=== PATIENT | male | born 1965 | race Two or more races ===

== ENCOUNTER 2020-07-11 09:43 | Outpatient (REF) | payer OTHER, SELFPAY ==
[2020-07-11 10:39] LABS: MANUAL DIFF FLAG NO
[2020-07-11 10:54] LABS: Basophils Percent Auto 0.5 % (0-2); Eosinophils Absolute Auto 0.2 X10*3/uL (0.0-0.4); Eosinophils Percent Auto 1.9 % (0-4); Hematocrit 45.2 % (42-52); Hemoglobin 14.8 g/dl (14.0-18.0); Imm Gran Abs Auto 0.02 X10*3/uL (0.00-0.03); Imm Gran Pct Auto 0.2 % (0.0-0.4); Lymphocytes Absolute Auto 2.9 X10*3/uL (1.2-4.9); Lymphocytes Percent Auto 35.4 % (20-40); Mean Corpuscular HGB Conc 32.7 g/dl (31.0-36.0); Mean Corpuscular Hemoglobin 28.7 pg (27.0-33.0); Mean Corpuscular Volume 87.6 fL (80-98); Mean Platelet Volume 12.3 fL (9.4-12.4); Monocytes Absolute Auto 0.4 X10*3/uL (0.1-1.2); Monocytes Percent Auto 5.5 % (2-11); Neutrophils Absolute Auto 4.5 X10*3/uL (2.0-8.3); Neutrophils Percent Auto 56.5 % (45-73); Platelet Count 220 X10*3/uL (160-400); Red Blood Count 5.16 X10*6/uL (4.60-5.80); Red Cell Distribution Width 13.3 % (11.0-16.0)
[2020-07-11 11:00] LABS: Estimated Average Glucose 255 mg/dL; Hemoglobin A1c % 10.5 %
[2020-07-11 11:35] LABS: Alanine Aminotransferase 115 U/L (0-40); Alkaline Phosphatase 159 U/L (39-117); Anion Gap 14 (12-20); Aspartate Amino Transferase 70 U/L (5-37); Bilirubin Total 1.2 mg/dL (0.0-1.0); Blood Urea Nitrogen 16 mg/dL (9-16); Calcium 9.4 mg/dL (8.4-10.2); Carbon Dioxide 28 mmol/L (22-29); Chloride 100 mmol/L (96-108); Cholesterol 163 mg/dL; Estimated Glomerular Filt Rate > 60; Glucose Fasting 289 mg/dL (60-99); HDL Cholesterol 49 mg/dL; LDL Cholesterol Calculated 92 mg/dl; Potassium 5.1 mmol/l (3.3-5.1); Prostate Specific Antigen Scr 0.52 ng/mL (<0.05-4.0); Sodium 137 mmol/L (135-145); TSH reflex Free T4 1.07 mIU/mL (0.32-4.0); Total Protein 7.4 g/dL (6.5-8.0); Triglycerides 114 mg/dL
[2020-07-11 11:38] LABS: Creatinine Urine 245.12 mg/dL
== END 2020-07-11 09:44 | disposition home or self-care (01) ==
LOC: HO.LAB 09:43
PROVIDERS: PCP Physician Assistant; Visit Provider Physician Assistant
DX: E11.9 Type 2 diabetes mellitus without complications (principal); I10 Essential (primary) hypertension; Z12.5 Encounter for screening for malignant neoplasm of prostate
CPT/HCPCS: 36415; 80053; 80061; 82043; 83036; 84153; 84443; 85025

== ENCOUNTER 2020-10-18 06:01 | Outpatient (REF) | payer OTHER, SELFPAY ==
[2020-10-18 07:01] LABS: Estimated Average Glucose 200 mg/dL; Hemoglobin A1c % 8.6 %
[2020-10-18 07:03] LABS: Alanine Aminotransferase 102 U/L (0-40); Albumin Level 4.2 g/dL (3.5-5.0); Alkaline Phosphatase 132 U/L (39-117); Anion Gap 15 (12-20); Aspartate Amino Transferase 66 U/L (5-37); Bilirubin Total 0.8 mg/dL (0.0-1.0); Blood Urea Nitrogen 17 mg/dL (9-16); Calcium 10.1 mg/dL (8.4-10.2); Carbon Dioxide 29 mmol/L (22-29); Chloride 100 mmol/L (96-108); Cholesterol 158 mg/dL; Estimated Glomerular Filt Rate > 60; Glucose Fasting 225 mg/dL (60-99); HDL Cholesterol 50 mg/dL; LDL Cholesterol Calculated 90 mg/dl; Sodium 139 mmol/L (135-145); Total Protein 7.7 g/dL (6.5-8.0); Triglycerides 90 mg/dL
== END 2020-10-18 06:02 | disposition home or self-care (01) ==
LOC: HO.LAB 06:01
PROVIDERS: PCP Physician Assistant; Visit Provider Physician Assistant
DX: E11.9 Type 2 diabetes mellitus without complications (principal)
CPT/HCPCS: 36415; 80053; 80061; 83036

== ENCOUNTER 2021-02-25 07:09 | Outpatient (REF) | payer OTHER, SELFPAY ==
[2021-02-25 08:23] LABS: Alanine Aminotransferase 92 U/L (0-40); Albumin Level 4.1 g/dL (3.5-5.0); Alkaline Phosphatase 131 U/L (39-117); Anion Gap 13 (12-20); Aspartate Amino Transferase 58 U/L (5-37); Bilirubin Total 0.6 mg/dL (0.0-1.0); Blood Urea Nitrogen 18 mg/dL (9-16); Calcium 9.6 mg/dL (8.4-10.2); Carbon Dioxide 28 mmol/L (22-29); Chloride 102 mmol/L (96-108); Cholesterol 147 mg/dL; Estimated Glomerular Filt Rate > 60; Glucose Fasting 239 mg/dL (60-99); HDL Cholesterol 47 mg/dL; LDL Cholesterol Calculated 80 mg/dl; Potassium 4.8 mmol/L (3.3-5.1); Sodium 138 mmol/L (135-145); Total Protein 7.5 g/dL (6.5-8.0); Triglycerides 102 mg/dL
[2021-02-25 08:33] LABS: Estimated Average Glucose 171 mg/dL; Hemoglobin A1c % 7.6 %
[2021-02-25 10:43] LABS: Creatinine Urine 199.02 mg/dL; Microalbum/Creatinine Ratio Ur 8.5 ug/mg cr
== END 2021-02-25 07:10 | disposition home or self-care (01) ==
LOC: HO.LAB 07:09
PROVIDERS: PCP Physician Assistant; Visit Provider Physician Assistant
DX: I10 Essential (primary) hypertension (principal); E11.9 Type 2 diabetes mellitus without complications
CPT/HCPCS: 36415; 80053; 80061; 82043; 83036

== ENCOUNTER 2021-06-13 16:16 | Outpatient (REF) | payer OTHER, SELFPAY ==
--- NOTE | ~2021-06-13 | XR_ITS ---
EXAMINATION: XR chest 2V CLINICAL INFORMATION: Reason for Exam Z11.1 - Encounter for screening for respiratory tuberculosis COMPARISON: No prior chest x-ray available in our system for comparison at the time of this dictation. TECHNIQUE: XR chest 2V Lungs and Dena: Both lungs are clear. Prominent first costochondral junction right more than left projecting over the right lung apex. Pleura: Normal. Costophrenic angles are sharp. No pneumothorax. Heart: The heart is normal in size. Mediastinum: The mediastinum is within normal limits.. Bones: Skeletal structures included are normal for patient's age. XR/XR chest 2V IMPRESSION: Normal chest x-ray.
[2021-06-13 16:48] LABS: MANUAL DIFF FLAG NO
[2021-06-13 17:01] LABS: Basophils Absolute Auto 0.1 X10*3/uL (0.0-0.2); Basophils Percent Auto 0.6 % (0-2); Eosinophils Absolute Auto 0.2 X10*3/uL (0.0-0.4); Eosinophils Percent Auto 1.8 % (0-4); Hematocrit 45.3 % (42.0-52.0); Hemoglobin 14.9 g/dl (14.0-18.0); Imm Gran Abs Auto 0.03 X10*3/uL (0.00-0.03); Imm Gran Pct Auto 0.3 % (0.0-0.4); Lymphocytes Absolute Auto 4.5 X10*3/uL (1.2-4.9); Lymphocytes Percent Auto 38.1 % (20-40); Mean Corpuscular HGB Conc 32.9 g/dl (31.0-36.0); Mean Corpuscular Hemoglobin 29.2 pg (27.0-33.0); Mean Corpuscular Volume 88.8 fL (80.0-98.0); Monocytes Absolute Auto 0.8 X10*3/uL (0.1-1.2); Monocytes Percent Auto 6.9 % (2-11); Neutrophils Absolute Auto 6.1 x10*3/uL (2.0-8.3); Neutrophils Percent Auto 52.3 % (45-73); Platelet Count 269 X10*3/uL (160-400); Red Cell Distribution Width 13.2 % (11.0-16.0); White Blood Count 11.7 X10*3/uL (4.8-10.8)
[2021-06-13 17:15] LABS: Alanine Aminotransferase 96 U/L (0-40); Albumin Level 4.3 g/dL (3.5-5.0); Alkaline Phosphatase 149 U/L (39-117); Anion Gap 13 (12-20); Aspartate Amino Transferase 65 U/L (5-37); Bilirubin Total 0.7 mg/dL (0.0-1.0); Blood Urea Nitrogen 16 mg/dL (9-16); Calcium 10.2 mg/dL (8.4-10.2); Carbon Dioxide 31 mmol/L (22-29); Chloride 99 mmol/L (96-108); Estimated Glomerular Filt Rate > 60; Glucose Random 159 mg/dL (60-115); Potassium 4.4 mmol/L (3.3-5.1); Sodium 139 mmol/L (135-145); Total Protein 8.2 g/dL (6.5-8.0)
== END 2021-06-13 16:17 | disposition home or self-care (01) ==
LOC: HO.XRAY 16:16
PROVIDERS: Absent Provider Physician Assistant; PCP Physician Assistant; Visit Provider Nurse Practitioner
DX: Z11.1 Encounter for screening for respiratory tuberculosis (principal); D36.9 Benign neoplasm, unspecified site
CPT/HCPCS: 36415; 71046; 80053; 85025; 99212

== ENCOUNTER 2021-07-07 16:11 | Outpatient (REF) | payer OTHER, SELFPAY ==
[2021-07-07 16:46] LABS: Hematocrit 44.9 % (42.0-52.0); Hemoglobin 14.7 g/dl (14.0-18.0); Mean Corpuscular HGB Conc 32.7 g/dl (31.0-36.0); Mean Corpuscular Hemoglobin 29.1 pg (27.0-33.0); Mean Corpuscular Volume 88.7 fL (80.0-98.0); Mean Platelet Volume 11.2 fL (9.4-12.4); Platelet Count 244 X10*3/uL (160-400); Red Blood Count 5.06 X10*6/uL (4.60-5.80); Red Cell Distribution Width 13.4 % (11.0-16.0); White Blood Count 9.9 X10*3/uL (4.8-10.8)
[2021-07-07 16:56] LABS: Estimated Average Glucose 166 mg/dL; Hemoglobin A1c % 7.4 %
[2021-07-07 17:08] LABS: Alanine Aminotransferase 70 U/L (0-40); Albumin Level 4.4 g/dL (3.5-5.0); Alkaline Phosphatase 115 U/L (39-117); Anion Gap 14 (12-20); Aspartate Amino Transferase 67 U/L (5-37); Bilirubin Total 0.8 mg/dL (0.0-1.0); Blood Urea Nitrogen 12 mg/dL (9-16); Calcium 9.9 mg/dL (8.4-10.2); Carbon Dioxide 28 mmol/L (22-29); Chloride 102 mmol/L (96-108); Cholesterol 149 mg/dL; Estimated Glomerular Filt Rate > 60; Glucose Fasting 116 mg/dL (60-99); HDL Cholesterol 48 mg/dL; LDL Cholesterol Calculated 83 mg/dl; Potassium 4.5 mmol/L (3.3-5.1); Sodium 139 mmol/L (135-145); Total Protein 8.2 g/dL (6.5-8.0); Triglycerides 91 mg/dL
[2021-07-07 17:43] LABS: TSH reflex Free T4 1.12 uIU/mL (0.32-4.0)
[2021-07-07 18:14] LABS: Prostate Specific Antigen Scr 0.62 ng/mL (<0.05-4.0)
== END 2021-07-07 16:12 | disposition home or self-care (01) ==
LOC: HO.LAB 16:11
PROVIDERS: PCP Physician Assistant; Visit Provider Physician Assistant
DX: Z12.5 Encounter for screening for malignant neoplasm of prostate (principal); E11.9 Type 2 diabetes mellitus without complications; I10 Essential (primary) hypertension
CPT/HCPCS: 36415; 80053; 80061; 83036; 84153; 84443; 85027

== ENCOUNTER 2022-01-13 07:47 | Outpatient (REF) | payer OTHER, SELFPAY ==
[2022-01-13 08:24] LABS: Hematocrit 40.5 % (42.0-52.0); Hemoglobin 13.4 g/dl (14.0-18.0); Mean Corpuscular HGB Conc 33.1 g/dl (31.0-36.0); Mean Corpuscular Hemoglobin 29.5 pg (27.0-33.0); Platelet Count 176 X10*3/uL (160-400); Red Blood Count 4.55 X10*6/uL (4.60-5.80); Red Cell Distribution Width 13.8 % (11.0-16.0)
[2022-01-13 09:04] LABS: Estimated Average Glucose 177 mg/dL; Hemoglobin A1c % 7.8 %
[2022-01-13 09:16] LABS: TSH reflex Free T4 1.59 uIU/mL (0.32-4.0)
[2022-01-13 09:22] LABS: Alanine Aminotransferase 159 U/L (0-40); Albumin Level 3.8 g/dL (3.5-5.0); Alkaline Phosphatase 185 U/L (39-117); Anion Gap 13 (12-20); Aspartate Amino Transferase 95 U/L (5-37); Bilirubin Total 1.4 mg/dL (0.0-1.0); Blood Urea Nitrogen 15 mg/dL (9-16); Calcium 9.5 mg/dL (8.4-10.2); Carbon Dioxide 25 mmol/L (22-29); Chloride 101 mmol/L (96-108); Estimated Glomerular Filt Rate > 60; Glucose Fasting 303 mg/dL (60-99); Potassium 4.8 mmol/L (3.3-5.1); Sodium 134 mmol/L (135-145); Total Protein 7.5 g/dL (6.5-8.0)
== END 2022-01-13 07:48 | disposition home or self-care (01) ==
LOC: HO.LAB 07:47
PROVIDERS: PCP Physician Assistant; Visit Provider Physician Assistant
DX: E11.9 Type 2 diabetes mellitus without complications (principal); I10 Essential (primary) hypertension
CPT/HCPCS: 36415; 80053; 83036; 84443; 85027

== ENCOUNTER 2022-02-16 08:39 | Outpatient (REF) | payer OTHER, SELFPAY ==
--- NOTE | ~2022-02-16 | US_ITS ---
EXAMINATION: US ABDOMEN LIMITED CLINICAL INFORMATION: Abnormal LFTs. COMPARISON: None TECHNIQUE: Real-time imaging of the right upper quadrant abdominal viscera. FINDINGS: PANCREAS: Not well visualized due to bowel gas LIVER: The liver is normal in size. The liver contour is normal. Liver echotexture is increased and heterogeneous questionable for hepatocellular disease. No focal hepatic lesion. There is no intrahepatic biliary duct dilatation seen. GALLBLADDER: Normal. The gallbladder is physiologically distended without evidence of stones, sludge, polyps, wall thickening or pericholecystic fluid. COMMON BILE DUCT: Normal in caliber measuring 0.4 cm in diameter. RIGHT KIDNEY: Normal. No hydronephrosis. No renal calculi or focal parenchymal lesions. The kidney measures 11.1 cm in maximum dimension. FREE FLUID: None. US/US abdomen limited IMPRESSION: Echogenic heterogeneous liver echotexture questionable for hepatocellular disease. Limited visualization of the pancreas.
== END 2022-02-16 08:40 | disposition home or self-care (01) ==
LOC: HO.HMGCX 08:39
PROVIDERS: Visit Provider Physician Assistant
DX: Z13.89 Encounter for screening for other disorder (principal)
CPT/HCPCS: 76705

== ENCOUNTER → 2022-03-28 12:07 | Outpatient (REF) | payer OTHER, SELFPAY ==
--- NOTE | 2022-03-28 12:16 | ECG_ITS ---
Test Reason : preop Blood Pressure : / mmHG Vent. Rate : 074 BPM Atrial Rate : 074 BPM P-R Int : 226 ms QRS Dur : 082 ms QT Int : 364 ms P-R-T Axes : 045 017 -15 degrees QTc Int : 404 ms Sinus rhythm with 1st degree A-V block Otherwise normal ECG When compared with ECG of 09-NOV-2009 07:51, [place] interval has increased Nonspecific T wave abnormality no longer evident in Lateral leads Referred By: Sia Garcia Electronically Signed By:EZIO ARRIETA
== END ==
LOC: HO.CARD 12:07
PROVIDERS: PCP Physician Assistant; Visit Provider Nurse Practitioner Family
DX: Z01.818 Encounter for other preprocedural examination (principal)
CPT/HCPCS: 93005

== ENCOUNTER 2022-04-02 08:18 | Day surgery (SDC) | payer OTHER, SELFPAY ==
[2022-03-28 10:02] VITALS: BMI 29.4
--- NOTE | 2022-03-30 09:16 | MHC.SHP ---
Pre-Procedural Eval Section A Date of Service: 03/30/22 The patient is an INPATIENT: No Changes since office visit: No Cold of Flu in the past 2 weeks, No New Medical Problems, No Changes in Medication and No Patient answered all questions The History & Physical has been completed within 30 days and I have reviewed it.: Yes Section B Chief Complaint: cataract Allergies: Allergies Allergy/AdvReac Type Severity Reaction Status Date / Time dulaglutide [From [facility]] AdvReac Intermediate GI upset Verified 03/27/22 16:29 Plan Diagnosis/Plan: Unchanged I have reviewed the history and physical and performed a pertinent physical examination on my patient. No changes have occurred unless specified.
--- NOTE | 2022-03-30 09:18 | HO.ANESPROP2 ---
Documented by User: Yumiko Gregory NP 03/30/22 09:19 HPI - Anesthesia Eval Consult details Narrative: 57yo M for Right Cataract Extraction IOL Insertion PCP cleared No previous cataract on record [facility] Active Problems Active Problems: All Active Problems (Updated 03/27/22 @ 16:35 by MANUELITO Lopes) Preoperative clearance (Acute) Hepatocellular injury (Acute) Cataract (Acute) Postprandial abdominal bloating (Acute) Elevated liver enzymes (Acute) HTN (hypertension) (Acute) DMII (diabetes mellitus, type 2) (Acute) Fatigue (Acute) Annual physical exam (Acute) Screening-pulmonary TB (Acute) Multiple adenomatous polyps (Acute) Past Medical History Medical History Diabetes HTN (hypertension) Family History Family History Father Diabetes Hypertension Mother Hypertension Diabetes Surgical History Surgical History History of eye surgery History of removal of cyst Social History Social History Housing: Apartment Are you a primary family day carer to a significant other at home: No Do you presently have visiting nurse or other home services: No Alcohol intake: never Patient Tobacco Use Status: Never used Tobacco e-Cigarette/Vaping Use: Never Used Use of substances other than those prescribed or required for medical reasons: No Have you been hit, kicked, punched, or otherwise hurt by someone within the past year? If so, by whom?: No Are you DNR?: No Advance Directives: No Advance Directives Information Provided: Yes Advance Directives on File: No Recently lost weight without trying: No Nutrition Risks: No Nutritional Risk service: Yes Current occupational status: employed and retired () Current occupation: [employer] Cognitive needs: No Hearing needs: No Vision needs: Yes Meds Allergies Allergy/AdvReac Type Severity Reaction Status Date / Time dulaglutide [From [facility]] AdvReac Intermediate GI upset Verified 03/27/22 16:29 Home Medications Medication Instructions Recorded Confirmed Last Taken Type sildenafil 100 mg tablet (Viagra) 100 mg PO DAILY PRN Sexual Activity 05/02/20 03/28/22 Unknown History Exam Exam Date and Time: March 30, 2022917 Height,Weight and Vital Signs: Height 5 ft 7 in Weight 85.275 kg Narrative Narrative: EKG 03/2022 SR with 1st AV block Assessment and Plan Assessment Anesthesia Assessment: Chart Reviewed Documented by User: Prema Mars MD 04/02/22 10:34 [facility] Past Medical History Medical History Diabetes HTN (hypertension) Family History Family History Father Diabetes Hypertension Mother Hypertension Diabetes Family history of problems with anesthesia: No Surgical History Surgical History History of eye surgery History of removal of cyst History of Problems with Anesthesia: No Social History Social History Housing: Apartment Are you a primary family day carer to a significant other at home: No Do you presently have visiting nurse or other home services: No Alcohol intake: never Patient Tobacco Use Status: Never used Tobacco e-Cigarette/Vaping Use: Never Used Use of substances other than those prescribed or required for medical reasons: No Have you been hit, kicked, punched, or otherwise hurt by someone within the past year? If so, by whom?: No Are you DNR?: No Advance Directives: No Advance Directives Information Provided: Yes Advance Directives on File: No Recently lost weight without trying: No Nutrition Risks: No Nutritional Risk service: Yes Current occupational status: employed and retired () Current occupation: [employer] Cognitive needs: No Hearing needs: No Vision needs: Yes Meds Allergies Allergy/AdvReac Type Severity Reaction Status Date / [facility] AdvReac Intermediate GI upset Verified 03/27/22 16:29 Home Medications Medication Instructions Recorded Confirmed Last Taken Type sildenafil 100 mg tablet (Viagra) 100 mg PO DAILY PRN Sexual Activity 05/02/20 03/28/22 Unknown History Exam Height,Weight and Vital Signs: Height 5 ft 7 in Weight 85.275 kg Vital Signs Temp Pulse Resp BP Pulse Ox O2 Del Method 04/02/22 09:33 98.1 F 78 18 155/77 H 99 Room Air Pertinent Lab Results Pertinent Lab Results: Lab Results 04/02/22 Range/Units 09:43 POC Glucose 194 H (60-115) mg/dL Airway Mallampati Class: II TM Dist: >3cm Neck ROM: Full Loose/Missing/Broken Teeth: No Heart: RRR Lungs: CTAB Assessment and Plan Assessment Anesthesia Assessment: Anesthesia Plan Discussed Final Anesthetic Review Family History of Problems with Anesthesia: No History of Problems with Anesthesia: No NPO: Yes ASA Class: II Final Preanesthetic Review: No Changes in Pt Med Stat, Meds/Allgs Chart Reviewed, Consent Obtained/Reviewed and Anes Risks/Benef Reviewed Patient Risk: Intermediate Procedure Risk: Low Assessment/Block/Sedation in SS: Assess/Block/Sedation-SS Anesthetic Plan Anesthetic Plan: MAC: Disposition: Standard PACU
[2022-04-02 09:33] VITALS: BP 155/77; PULSE 78; RESP 18; TEMP 36.7; O2SAT 99
[2022-04-02] MEDS: Phenylephrine HCL 2.5% Oph SoL 2 ML BOTTLE 1 DROP EYE-RIGHT ×3 (09:53→09:58)
[2022-04-02] MEDS: Tetracaine HCl/PF 0.5% Oph Sol 4 ML DROPS 1 DROP EYE-RIGHT (09:53)
[2022-04-02] MEDS: Cyclopentolate 1 % Ophth Sol 2 ML DRPBTL 1 DROP EYE-RIGHT ×3 (09:54→09:58)
[2022-04-02] MEDS: Tropicamide 1 % Ophth Sol 3 ML BTL 1 DROP EYE-RIGHT ×3 (09:54→09:58)
[2022-04-02] MEDS: Lactated Ringers 500 ML 50 ML IV (09:59)
[2022-04-02 10:00] VITALS: BMI 29.0
[2022-04-02 10:03] LABS: Glucose, Whole Blood 194 mg/dL (60-115)
--- NOTE | 2022-04-02 11:26 | HO.PNOPHT ---
Ophthalmology Procedure Procedure Date of Service: 04/02/22 Ophthalmology Viscoelastic: Nidia Draket Dual Pack Pro Ophthalmology Lenses: TECSVITLANA [id number] (24) Procedure Notes: PREOPERATIVE DIAGNOSIS: Decreased visual acuity right eye secondary to cataract POSTOPERATIVE DIAGNOSIS: Same PROCEDURE: Right cataract extraction with intraocular lens insertion SURGEON: Teodoro Galdamez M.D. ANESTHESIA: Topical/MAC ESTIMATED BLOOD LOSS: None COMPLICATIONS: None After obtaining informed consent, the patient was brought to the operating room suite and placed in the supine position. After adequate sedation per anesthesia, topical drops of Tetracaine were given to the right eye. The eye was then prepped and draped in the usual sterile fashion. The operating room microscope was then positioned over the operative eye and a lid speculum placed. A paracentesis was created. Viscoelastic was then instilled into the anterior chamber. A three plane incision was then created temporally, utilizing a 2.85 mm keratome. Capsulotomy forceps were then utilized to create a circular tear capsulotomy. Hydrodissection and hydrodelineation were carried out until adequate mobilization of the nucleus occurred. Phacoemulsification was then utilized to remove the dense central nucleus followed by removal of the cortical material utilizing the automated aspiration irrigation unit. Viscoelastic was instilled into the posterior capsular bag followed by placement of a posterior chamber intraocular lens without difficulty. The residual Viscoelastic was then removed utilizing the automated IA machine. The wound was checked and found to be watertight. The patient tolerated the procedure well and the lid speculum was removed. Intracameral injection of Vigamox 0.1 mL followed by a subtenon injection of Kenalog-40 0.2 mL were administered. The patient will be seen in the a.m.
[2022-04-02 11:50] VITALS: BP 141/70; PULSE 66; RESP 16; TEMP 36.5; O2SAT 100
== END 2022-04-02 12:01 ==
LOC: HO.SSS 08:19
PROVIDERS: PCP Physician Assistant; Visit Provider Ophthalmology
PROC: (CPT 66985; principal; 2022-04-02 11:20)
DX: H25.11 Age-related nuclear cataract, right eye (principal); H54.7 Unspecified visual loss; H25.041 Posterior subcapsular polar age-related cataract, right eye; E11.3551 Type 2 diabetes mellitus with stable proliferative diabetic retinopathy, right eye; E11.3292 Type 2 diabetes mellitus with mild nonproliferative diabetic retinopathy without macular edema, left eye; I10 Essential (primary) hypertension; Z79.4 Long term (current) use of insulin; Z79.899 Other long term (current) drug therapy
CPT/HCPCS: 66984; 82947; J2250; J3010; J3300; V2632

== ENCOUNTER 2022-04-07 07:01 | Outpatient (REF) | payer OTHER, SELFPAY ==
[2022-04-07 08:23] LABS: Hemoglobin 14.3 g/dl (14.0-18.0); Mean Corpuscular HGB Conc 33.3 g/dl (31.0-36.0); Mean Corpuscular Hemoglobin 29.4 pg (27.0-33.0); Mean Corpuscular Volume 88.5 fL (80.0-98.0); Platelet Count 199 X10*3/uL (160-400); Red Blood Count 4.86 X10*6/uL (4.60-5.80); Red Cell Distribution Width 13.2 % (11.0-16.0); White Blood Count 7.9 X10*3/uL (4.8-10.8)
[2022-04-07 09:03] LABS: Alanine Aminotransferase 106 U/L (0-40); Albumin Level 3.9 g/dL (3.5-5.0); Alkaline Phosphatase 201 U/L (39-117); Anion Gap 17 (12-20); Aspartate Amino Transferase 90 U/L (5-37); Bilirubin Total 0.9 mg/dL (0.0-1.0); Blood Urea Nitrogen 15 mg/dL (9-16); Calcium 10.3 mg/dL (8.4-10.2); Carbon Dioxide 27 mmol/L (22-29); Chloride 99 mmol/L (96-108); Cholesterol 195 mg/dL; Estimated Glomerular Filt Rate > 60; Glucose Fasting 253 mg/dL (60-99); HDL Cholesterol 60 mg/dL; LDL Cholesterol Calculated 108 mg/dl; Potassium 5.1 mmol/L (3.3-5.1); Sodium 138 mmol/L (135-145); Total Protein 7.7 g/dL (6.5-8.0); Triglycerides 137 mg/dL
[2022-04-07 10:54] LABS: Creatinine Urine 116.55 mg/dL; Microalbum/Creatinine Ratio Ur 13.7 ug/mg cr
== END 2022-04-07 07:02 | disposition home or self-care (01) ==
LOC: HO.LAB 07:01
PROVIDERS: Visit Provider Physician Assistant
DX: E11.9 Type 2 diabetes mellitus without complications (principal); I10 Essential (primary) hypertension
CPT/HCPCS: 36415; 80053; 80061; 82043; 84443; 85027

== ENCOUNTER 2022-04-16 06:51 | Day surgery (SDC) | payer OTHER, SELFPAY ==
[2022-03-28 10:09] VITALS: BMI 29.4
--- NOTE | 2022-04-12 15:08 | MHC.SHP ---
Pre-Procedural Eval Section A Date of Service: 04/12/22 The patient is an INPATIENT: No Changes since office visit: No Cold of Flu in the past 2 weeks, No New Medical Problems, No Changes in Medication and No Patient answered all questions The History & Physical has been completed within 30 days and I have reviewed it.: Yes Section B Chief Complaint: cataract Allergies: Allergies Allergy/AdvReac Type Severity Reaction Status Date / Time dulaglutide [From [facility]] AdvReac Intermediate GI upset Verified 04/11/22 15:11 Plan Diagnosis/Plan: Unchanged I have reviewed the history and physical and performed a pertinent physical examination on my patient. No changes have occurred unless specified.
--- NOTE | 2022-04-13 08:31 | HO.ANESPROP2 ---
Documented by User: Yumiko Gregory NP 04/13/22 08:37 HPI - Anesthesia Eval Consult details Narrative: 57yo M for Left Cataract Extraction IOL Insertion PCP cleared Right eye 04/02/22 with TIVA: Fent 50, Midaz 1 PMFSH Active Problems Active Problems: All Active Problems (Updated 04/11/22 @ 15:31 by Khadar Arciniega PA-C) HLD (hyperlipidemia) (Acute) HTN (hypertension) (Acute) DMII (diabetes mellitus, type 2) (Acute) Fatigue (Acute) Annual physical exam (Acute) Screening-pulmonary TB (Acute) Multiple adenomatous polyps (Acute) Elevated liver enzymes (Acute) Postprandial abdominal bloating (Acute) Cataract (Acute) Hepatocellular injury (Acute) Preoperative clearance (Acute) First degree AV block (Acute) Past Medical History Medical History Diabetes HTN (hypertension) Family History Family History Father Diabetes Hypertension Mother Hypertension Diabetes Family history of problems with anesthesia: No Surgical History Surgical History History of cataract extraction History of eye surgery History of removal of cyst History of Problems with Anesthesia: No Social History Social History Housing: Apartment Are you a primary healthcare management consultant to a significant other at home: No Do you presently have visiting nurse or other home services: No Alcohol intake: never Patient Tobacco Use Status: Never used Tobacco e-Cigarette/Vaping Use: Never Used Use of substances other than those prescribed or required for medical reasons: No Have you been hit, kicked, punched, or otherwise hurt by someone within the past year? If so, by whom?: No Are you DNR?: No Advance Directives: No Advance Directives Information Provided: Yes Advance Directives on File: No Recently lost weight without trying: No Eating poorly because of decreased appetite: No Nutrition Risks: No Nutritional Risk service: Yes Current occupational status: employed and retired () Current occupation: [employer] Cognitive needs: No Hearing needs: No Vision needs: Yes Meds Allergies Allergy/AdvReac Type Severity Reaction Status Date / Time dulaglutide [From [facility]] AdvReac Intermediate GI upset Verified 04/16/22 07:41 Home Medications Medication Instructions Recorded Confirmed Last Taken Type sildenafil 100 mg tablet (Viagra) 100 mg PO DAILY PRN Sexual Activity 05/02/20 04/11/22 Unknown History Exam Exam Date and Time: April 13, 2022830 Height,Weight and Vital Signs: Height 5 ft 7 in Weight 85.275 kg Assessment and Plan Assessment Anesthesia Assessment: Chart Reviewed Final Anesthetic Review Family History of Problems with Anesthesia: No History of Problems with Anesthesia: No Documented by User: Filiberto Child MD 04/16/22 08:52 PMF Past Medical History Medical History Diabetes HTN (hypertension) Family History Family History Father Diabetes Hypertension Mother Hypertension Diabetes Surgical History Surgical History History of cataract extraction History of eye surgery History of removal of cyst Social History Social History Housing: Apartment Are you a primary healthcare management consultant to a significant other at home: No Do you presently have visiting nurse or other home services: No Alcohol intake: never Patient Tobacco Use Status: Never used Tobacco e-Cigarette/Vaping Use: Never Used Use of substances other than those prescribed or required for medical reasons: No Have you been hit, kicked, punched, or otherwise hurt by someone within the past year? If so, by whom?: No Are you DNR?: No Advance Directives: No Advance Directives Information Provided: Yes Advance Directives on File: No Recently lost weight without trying: No Eating poorly because of decreased appetite: No Nutrition Risks: No Nutritional Risk service: Yes Current occupational status: employed and retired () Current occupation: [employer] Cognitive needs: No Hearing needs: No Vision needs: Yes Meds Allergies Allergy/AdvReac Type Severity Reaction Status Date / Time dulaglutide [From [facility]] AdvReac Intermediate GI upset Verified 04/16/22 07:41 Home Medications Medication Instructions Recorded Confirmed Last Taken Type sildenafil 100 mg tablet (Viagra) 100 mg PO DAILY PRN Sexual Activity 05/02/20 04/11/22 Unknown History Exam Airway Mallampati Class: II TM Dist: >3cm Neck ROM: Full Loose/Missing/Broken Teeth: No Heart: rrr+s1s2 Lungs: cta b/l Assessment and Plan Assessment Anesthesia Assessment: Anesthesia Plan Discussed Final Anesthetic Review NPO: Yes ASA Class: III Final Preanesthetic Review: No Changes in Pt Med Stat, Meds/Allgs Chart Reviewed, Consent Obtained/Reviewed and Anes Risks/Benef Reviewed Patient Risk: Intermediate Procedure Risk: Low Assessment/Block/Sedation in SS: Assess/Block/Sedation-SS Anesthetic Plan Anesthetic Plan: MAC: and Agree w/ Assess. and Plan Disposition: Standard PACU
[2022-04-16 07:44] VITALS: BP 172/90; PULSE 69; RESP 15; TEMP 36.2; O2SAT 98
[2022-04-16] MEDS: Tetracaine HCl/PF 0.5% Oph Sol 4 ML DROPS 1 DROP EYE-LEFT (07:49)
[2022-04-16] MEDS: Cyclopentolate 1 % Ophth Sol 2 ML DRPBTL 1 DROP EYE-LEFT ×3 (07:51→08:04)
[2022-04-16 07:54] LABS: Glucose, Whole Blood 183 mg/dL (60-115)
[2022-04-16] MEDS: Tropicamide 1 % Ophth Sol 3 ML BTL 1 DROP EYE-LEFT ×3 (07:54→08:05)
[2022-04-16] MEDS: Ketorolac Tromethamine 0.5% Op 5 ML DROPS 1 DROP EYE-LEFT ×3 (07:55→08:07)
[2022-04-16] MEDS: Phenylephrine HCL 2.5% Oph SoL 2 ML BOTTLE 1 DROP EYE-LEFT ×3 (07:56→08:08)
[2022-04-16] MEDS: Lactated Ringers 500 ML 50 ML IV (08:09)
--- NOTE | 2022-04-16 08:45 | HO.PNOPHT ---
Ophthalmology Procedure Procedure Date of Service: 04/16/22 Ophthalmology Viscoelastic: Healsarah Duet Dual Pack Pro Ophthalmology Lenses: TECSVITLANA [id number] (25) Procedure Notes: PREOPERATIVE DIAGNOSIS: Decreased visual acuity left eye secondary to cataract POSTOPERATIVE DIAGNOSIS: Same PROCEDURE: Left cataract extraction with intraocular lens insertion SURGEON: Teodoro Galdamez M.D. ANESTHESIA: Topical/MAC ESTIMATED BLOOD LOSS: None COMPLICATIONS: None After obtaining informed consent, the patient was brought to the operation room suite and placed in the supine position. After adequate sedation per anesthesia, topical drops of Tetracaine were given to the left eye. The eye was then prepped and draped in the usual sterile fashion. The operating room microscope was then positioned over the operative eye and a lid speculum placed. A paracentesis was created. Viscoelastic was then instilled into the anterior chamber. A three plane incision was then created temporally, utilizing a 2.85 mm keratome. Capsulotomy forceps were then utilized to create a circular tear capsulotomy. Hydrodissection and hydrodelineation were carried out until adequate mobilization of the nucleus occurred. Phacoemulsification was then utilized to remove the dense central nucleus followed by removal of the cortical material utilizing the automated aspiration irrigation unit. Viscoat elastic was instilled into the posterior capsular bag followed by placement of a posterior chamber intraocular lens without difficulty. The residual Viscoat elastic was then removed utilizing the automated IA machine. The wound was check and found to be watertight. The patient tolerated the procedure well and the lid speculum was removed. Intracameral injection of Vigamox 0.1 mL followed by a subtenon injection of Kenalog-40 0.2 mL were administered. The patient will be seen in the a.m.
[2022-04-16 09:11] VITALS: BP 142/69; PULSE 63; RESP 18; TEMP 36.8; O2SAT 98
== END 2022-04-16 09:18 | disposition home or self-care (01) ==
PROVIDERS: PCP Physician Assistant; Visit Provider Ophthalmology
PROC: (CPT 66985; principal; 2022-04-16 08:50)
DX: H25.12 Age-related nuclear cataract, left eye (principal); H54.7 Unspecified visual loss; I10 Essential (primary) hypertension; E11.3592 Type 2 diabetes mellitus with proliferative diabetic retinopathy without macular edema, left eye; Z79.4 Long term (current) use of insulin; Z79.899 Other long term (current) drug therapy
CPT/HCPCS: 66984; 82947; J2250; J3300; V2632

== ENCOUNTER 2022-05-04 07:01 | Day surgery (SDC) | payer OTHER, SELFPAY ==
--- NOTE | 2022-05-03 13:56 | P.CONAN_ITS ---
Documented by User: Yumiko Gregory NP 05/03/22 13:59 HPI - Anesthesia Eval Consult details Narrative: 57yo M for Colonoscopy PMFSH Active Problems Active Problems: All Active Problems (Updated 04/11/22 @ 15:31 by Khadar Arciniega PA-C) HLD (hyperlipidemia) (Acute) HTN (hypertension) (Acute) DMII (diabetes mellitus, type 2) (Acute) Fatigue (Acute) Annual physical exam (Acute) Screening-pulmonary TB (Acute) Multiple adenomatous polyps (Acute) Elevated liver enzymes (Acute) Postprandial abdominal bloating (Acute) Cataract (Acute) Hepatocellular injury (Acute) Preoperative clearance (Acute) First degree AV block (Acute) Past Medical History Medical History Diabetes HTN (hypertension) Family History Family History Father Diabetes Hypertension Mother Hypertension Diabetes Family history of problems with anesthesia: No Surgical History Surgical History History of cataract extraction History of eye surgery History of removal of cyst History of Problems with Anesthesia: No Social History Social History Housing: Apartment Are you a primary child caregiver private home to a significant other at home: No Do you presently have visiting nurse or other home services: No Alcohol intake: never Patient Tobacco Use Status: Never used Tobacco e-Cigarette/Vaping Use: Never Used Use of substances other than those prescribed or required for medical reasons: No Are you DNR?: No Advance Directives: No Advance Directives Information Provided: Yes service: Yes Current occupational status: employed and retired ([employer]) Current occupation: [employer] Cognitive needs: No Hearing needs: No Vision needs: Yes Meds Allergies Allergy/AdvReac Type Severity Reaction Status Date / Time [facility] AdvReac Intermediate GI upset Verified 05/04/22 07:41 Home Medications Medication Instructions Recorded Confirmed Last Taken Type sildenafil 100 mg tablet (Viagra) 100 mg PO DAILY PRN Sexual Activity 05/02/20 04/11/22 Unknown History Exam Exam Date and Time: May 03, 2022 1356 Pertinent Lab Results Pertinent Lab Results: Laboratory Tests 04/07/22 04/07/22 07:20 07:20 WBC 7.9 Hgb 14.3 Hct 43.0 Plt Count 199 Sodium 138 Potassium 5.1 Chloride 99 Carbon Dioxide 27 BUN 15 Creatinine 1.19 Narrative Narrative: EKG 03/2022 Vent. Rate : 074 BPM ? ? Atrial Rate : 074 BPM ?? P-R Int : 226 ms? QRS Dur : 082 ms ? ? QT Int : 364 ms ? ? ? P-R-T Axes : 045 017 -15 degrees ?? QTc Int : 404 ms ? Sinus rhythm with 1st degree A-V block Otherwise normal ECG When compared with ECG of 09-NOV-2009 07:51, [place] interval has increased Nonspecific T wave abnormality no longer evident in Lateral leads Assessment and Plan Assessment Anesthesia Assessment: Chart Reviewed Final Anesthetic Review Family History of Problems with Anesthesia: No History of Problems with Anesthesia: No Documented by User: Jerri Hernadez MD 05/04/22 07:42 [facility] Past Medical History Medical History Diabetes HTN (hypertension) Family History Family History Father Diabetes Hypertension Mother Hypertension Diabetes Surgical History Surgical History History of cataract extraction History of eye surgery History of removal of cyst Social History Social History Housing: Apartment Are you a primary child caregiver private home to a significant other at home: No Do you presently have visiting nurse or other home services: No Alcohol intake: never Patient Tobacco Use Status: Never used Tobacco e-Cigarette/Vaping Use: Never Used Use of substances other than those prescribed or required for medical reasons: No Are you DNR?: No Advance Directives: No Advance Directives Information Provided: Yes service: Yes Current occupational status: employed and retired () Current occupation: [employer] Cognitive needs: No Hearing needs: No Vision needs: Yes Meds Allergies Allergy/AdvReac Type Severity Reaction Status Date / Time [facility] AdvReac Intermediate GI upset Verified 05/04/22 07:41 Home Medications Medication Instructions Recorded Confirmed Last Taken Type sildenafil 100 mg tablet (Viagra) 100 mg PO DAILY PRN Sexual Activity 05/02/20 04/11/22 Unknown History Exam Airway Mallampati Class: II TM Dist: >3cm Neck ROM: Full Heart: rrr Lungs: cta Assessment and Plan Assessment Anesthesia Assessment: Anesthesia Plan Discussed Final Anesthetic Review NPO: Yes ASA Class: III Final Preanesthetic Review: No Changes in Pt Med Stat, Meds/Allgs Chart Reviewed and Consent Obtained/Reviewed Patient Risk: Intermediate Procedure Risk: Intermediate Anesthetic Plan Anesthetic Plan: MAC: Disposition: Standard PACU
[2022-05-04 07:16] VITALS: BMI 29.6
[2022-05-04 07:22] VITALS: BP 166/80; PULSE 76; RESP 15; TEMP 36.4; O2SAT 99
[2022-05-04] MEDS: Lactated Ringers 1,000 ML 100 ML IVCONT (07:41)
[2022-05-04 07:54] LABS: Glucose, Whole Blood 155 mg/dL (60-115)
--- NOTE | 2022-05-04 08:28 | P.HPSUR_ITS ---
Pre-Procedural Eval Section A Date of Service: 05/04/22 The History & Physical has been completed within 30 days and I have reviewed it.: No Section B Chief Complaint: Benign neoplasm, Details of Present Illness: Colon cancer screening, history of colon polyps Relevant Family History (Specify if Yes): No Relevant Social History: None Present Medications: see Short Stay Collaborative assessment Medical History: Significant History ( hypertension, diabetes, hyperlipidemia, elevated LFTs) History of Previous Operations: Relevant previous surgery/procedure and date(s) (History of eye surgery History of removal of cyst) Allergies: Allergies Allergy/AdvReac Type Severity Reaction Status Date / [facility] AdvReac Intermediate GI upset Verified 05/04/22 07:41 Review of Systems Sugical H&P ROS: Negative: Constitution, Cardiovascular, Respiratory and Gastrointestinal Exam Surgical H&P Exam: Normal: Heart, Normal: Lungs, Normal: Extremities and Normal: Abdomen Plan Diagnosis/Plan: Unchanged I have reviewed the history and physical and performed a pertinent physical examination on my patient. No changes have occurred unless specified.
--- NOTE | 2022-05-04 08:41 | PM.OP ---
Brief Operative Note Date of Service: 05/04/22 Pre-op diagnosis: colon cancer screening, history of multiple colon polyps Post-op diagnosis: other ( colon polyps, diverticulosis, hemorrhoids) Procedure: COLONOSCOPY TO CECUM WITH SNARE POLYPECTOMY, BIOPSY AND SUBMUCOSAL INJECTION Surgeon: Dru Durbin MD Anesthesia: MAC Was an Paraprofessional Aide used for this Procedure?: Yes Paraprofessional Aide: Denzel Bruce Estimated blood loss (mL): 0 Pathology: other (A- ASCENDING COLON POLYPS B- TRANSVERSE COLON POLYPS C- DESCENDING COLON POLYPS) Condition: stable Disposition: PACU
[2022-05-04 09:51] VITALS: BP 135/74; PULSE 72; RESP 16; TEMP 36.3; O2SAT 97
--- NOTE | 2022-05-04 09:51 | W.PM.OPN ---
Operative Note Operative Note Date of Service: 05/04/22 Narrative: Pre-op diagnosis: colon cancer screening, history of multiple colon polyps Post-op diagnosis:?other ( colon polyps, diverticulosis, hemorrhoids) Surgeon: Dru Durbin MD Anesthesia:?MAC COLONOSCOPY TILL CECUM WITH BIOPSIES, SNARE POLYPECTOMY AND SUBMUCOSAL INJECTION Consent: Indications for the procedure and potential complications of bleeding, perforation, reaction to medications and missed diagnosis were discussed with the patient and informed consent was obtained. Instrument: Olympus CF H 190 L variable stiffness adult colonoscope Monitoring: Vital signs and clinical assessment, intermittent blood pressure monitoring, continuous EKG monitoring, Pulse oximetry and Carbon Dioxide monitoring were done throughout the procedure. Colon withdrawl time was 55 minutes. Procedure: The patient was placed in the left lateral decubitis position and pre-procedure medications were administered. After a digital rectal examination of the ano-rectum, the video colonoscope was inserted into the rectum and advanced through the colon to the cecum. The colonoscope was slowly withdrawn in a retrograde panoramic fashion and the colon mucosa was carefully examined including a retroflexed view of the rectum. Findings and interventions are described below. Procedure Difficulty: Without difficulty Findings: Terminal Ileum: Not evaluated Cecum: Normal Ascending Colon: Four 10 -15 mm sessile polyps removed with a hot snare and eight 5-6 mm sessile polyps removed with a cold bx. Transverse Colon: Five 10-15 mm sessile polyps removed with a hot snare Descending Colon: Three 10-15 mm sessile polyps removed with a hot snare moderate diverticulosis. Sigmoid Colon: A few 8 to 10 mm sessile polyps not removed due to excessive spasm in the colon and long procedure. Moderate diverticulosis Rectum: Normal Ano-rectum: Moderate internal hemorrhoids Colon preparation: Good after some irrigation. Impression and Post Procedure Diagnosis: Colonoscopy Findings: Twenty small to medium sized polyps removed Moderate diverticulosis seen in the left colon Moderate hemorrhoids on retroflexed exam. Plan: Await pathology results Patient has an appointment on 05/18/22 in the [facility] with Payton Dominguez NP. Repeat Colonoscopy interval based on path results - in 1 year due to multiple polyps removed. Pt needs Genetic testing (if not done in the past) Colon polyps and diverticulosis handouts were given in the discharge area Breast [place] Node Biopsy Substrate(s) used for sentinel node biopsy in the non-neoadjuvant setting: Dye and Radiotracer General Surg. - Synoptic Notes Breast [place] Node Biopsy Substrate(s) used for sentinel node biopsy in the non-neoadjuvant setting: Dye and Radiotracer
[2022-05-04 10:06] VITALS: BP 135/74; PULSE 67; RESP 16; TEMP 36.3; O2SAT 97
== END 2022-05-04 10:45 | disposition home or self-care (01) ==
LOC: HO.SSS 07:02
PROVIDERS: PCP Physician Assistant; Visit Provider Internal Medicine Gastroenterology
PROC: 0DJD8ZZ Inspection of Lower Intestinal Tract, Via Natural or Artificial Opening Endoscopic (ICD-10-PCS; CPT 45378; principal; 2022-05-04 08:30)
DX: Z12.11 Encounter for screening for malignant neoplasm of colon (principal); Z86.010 Personal history of colon polyps; D12.2 Benign neoplasm of ascending colon; D12.3 Benign neoplasm of transverse colon; D12.4 Benign neoplasm of descending colon; K57.30 Diverticulosis of large intestine without perforation or abscess without bleeding; K64.8 Other hemorrhoids; I10 Essential (primary) hypertension; E78.5 Hyperlipidemia, unspecified; E11.9 Type 2 diabetes mellitus without complications; R79.89 Other specified abnormal findings of blood chemistry; Z79.4 Long term (current) use of insulin; Z79.899 Other long term (current) drug therapy; Z88.8 Allergy status to other drugs, medicaments and biological substances
CPT/HCPCS: 45385; 45380; 45381; 82947; 88305

== ENCOUNTER → 2022-05-18 15:21 | Outpatient (BNVA) | payer OTHER, SELFPAY | PROVIDERS: PCP Physician Assistant; Visit Provider Nurse Practitioner | DX: D36.9 Benign neoplasm, unspecified site (principal) | CPT/HCPCS: 99212 ==

== ENCOUNTER 2022-06-09 07:21 | Outpatient (REF) | payer OTHER, SELFPAY ==
[2022-06-09 08:11] LABS: Hematocrit 41.4 % (42.0-52.0); Hemoglobin 13.8 g/dl (14.0-18.0); Mean Corpuscular HGB Conc 33.3 g/dl (31.0-36.0); Mean Corpuscular Hemoglobin 29.4 pg (27.0-33.0); Mean Corpuscular Volume 88.1 fL (80.0-98.0); Mean Platelet Volume 11.5 fL (9.4-12.4); Platelet Count 216 X10*3/uL (160-400); Red Cell Distribution Width 13.1 % (11.0-16.0); White Blood Count 8.6 X10*3/uL (4.8-10.8)
[2022-06-09 08:43] LABS: Alanine Aminotransferase 98 U/L (0-40); Albumin Level 3.8 g/dL (3.5-5.0); Alkaline Phosphatase 212 U/L (39-117); Anion Gap 13 (12-20); Aspartate Amino Transferase 87 U/L (5-37); Blood Urea Nitrogen 18 mg/dL (9-16); Calcium 9.9 mg/dL (8.4-10.2); Carbon Dioxide 27 mmol/L (22-29); Chloride 102 mmol/L (96-108); Cholesterol 161 mg/dL; Estimated Glomerular Filt Rate > 60; Glucose Fasting 212 mg/dL (60-99); HDL Cholesterol 60 mg/dL; LDL Cholesterol Calculated 81 mg/dl; Potassium 5.1 mmol/L (3.3-5.1); Sodium 137 mmol/L (135-145); Total Protein 7.5 g/dL (6.5-8.0); Triglycerides 101 mg/dL
== END 2022-06-09 07:22 | disposition home or self-care (01) ==
LOC: HO.LAB 07:21
PROVIDERS: PCP Physician Assistant; Visit Provider Physician Assistant
DX: E11.9 Type 2 diabetes mellitus without complications (principal)
CPT/HCPCS: 36415; 80053; 80061; 85027

== ENCOUNTER 2022-11-19 06:02 | Outpatient (REF) | payer OTHER, SELFPAY ==
[2022-11-19 07:29] LABS: Hematocrit 39.5 % (42.0-52.0); Mean Corpuscular HGB Conc 32.9 g/dl (31.0-36.0); Mean Corpuscular Hemoglobin 29.7 pg (27.0-33.0); Mean Corpuscular Volume 90.4 fL (80.0-98.0); Mean Platelet Volume 12.2 fL (9.4-12.4); Platelet Count 195 X10*3/uL (160-400); Red Blood Count 4.37 X10*6/uL (4.60-5.80); Red Cell Distribution Width 13.6 % (11.0-16.0); White Blood Count 9.7 X10*3/uL (4.8-10.8)
[2022-11-19 08:10] LABS: Alanine Aminotransferase 84 U/L (0-40); Albumin Level 3.6 g/dL (3.5-5.0); Alkaline Phosphatase 193 U/L (39-117); Anion Gap 13 (12-20); Aspartate Amino Transferase 84 U/L (5-37); Bilirubin Total 1.5 mg/dL (0.0-1.0); Blood Urea Nitrogen 14 mg/dL (9-16); Calcium 9.4 mg/dL (8.4-10.2); Carbon Dioxide 27 mmol/L (22-29); Chloride 104 mmol/L (96-108); Cholesterol 161 mg/dL; Estimated Glomerular Filt Rate > 60; Glucose Fasting 97 mg/dL (60-99); HDL Cholesterol 60 mg/dL; LDL Cholesterol Calculated 85 mg/dl; Potassium 4.4 mmol/L (3.3-5.1); Sodium 140 mmol/L (135-145); Total Protein 7.2 g/dL (6.5-8.0); Triglycerides 84 mg/dL
[2022-11-19 08:27] LABS: TSH reflex Free T4 1.89 uIU/mL (0.32-4.0)
[2022-11-19 10:22] LABS: Creatinine Urine 104.64 mg/dL; Microalbumin Urine < 5.0 mg/L
== END 2022-11-19 06:03 | disposition home or self-care (01) ==
LOC: HO.LAB 06:02
PROVIDERS: PCP Physician Assistant; Visit Provider Physician Assistant
DX: I44.0 Atrioventricular block, first degree (principal); E11.9 Type 2 diabetes mellitus without complications; I10 Essential (primary) hypertension; R94.31 Abnormal electrocardiogram [ECG] [EKG]; I25.10 Atherosclerotic heart disease of native coronary artery without angina pectoris; Z79.84 Long term (current) use of oral hypoglycemic drugs; Z79.899 Other long term (current) drug therapy
CPT/HCPCS: 36415; 80053; 80061; 82043; 84443; 85027; 93005; 99202

== ENCOUNTER → 2023-02-18 07:40 | Outpatient (REF) | payer OTHER, SELFPAY ==
--- NOTE | ~2023-02-18 | NM_ITS ---
Exercise Myocardial perfusion study Indication: Abnormal EKG to evaluate for myocardial ischemia Technique: The patient was brought in for an exercise perfusion study on 02/18/2023. Patient performed exercise as per Gerald protocol and was injected 30 mCi of sestamibi was given intravenously one target HR was achieved. Images were obtained using the SPECT gamma camera interlaced with the gating device. Images were obtained in supine position. Resting perfusion study was performed on 02/20/2023. Patient was administered 30 mCi of sestamibi intravenously at rest. Images were then obtained in supine position. Images obtained with and without CT attenuation. Total DLP 91 mGy-cm. Images were processed with the software and compared side to side in short axis, horizontal long axis and vertical long axis views. Findings: The stress perfusion study showed non attenuated images show some thinning of the basal inferior wall of the LV myocardium. Remainder of the LV myocardium is normally perfused. Attenuation corrected images show normal uptake of radiotracer in all segments of LV myocardium.. The gated study shows normal LV systolic function with calculated LVEF of 67%. LV cavity is normal in size. The gated study shows normal systolic wall thickening and contraction of all segments. There is no transient ischemic dilation. Resting study shows normal uptake of radiotracer in all segments of LV myocardium. Gating at rest reveals normal systolic wall motion with ejection fraction at 68%. The findings are consistent with normal myocardial perfusion. NM/NM cardiolite stress test Impression: 1. Normal myocardial perfusion 2. Gated LVEF is 67% 3. Transient ischemic dilatation not present Stress EKG is negative for ischemia
--- NOTE | 2023-02-18 07:43 | CA_ITS ---
Acquisition Time: 2023-02-18 08:37:35 Total Exercise Time: 00:07:30 Test Indications: ABN EKG Medications: SEE H Protocol: KRISTEN Max HR: 144 BPM 89% of Pred: 161 BPM Max BP: 164/054 mmHG Max Work Load: 9.3 METS Exercise stress test exercise 7 min 30 sec of Kristen protocol achieving 89% MPHR, without anginal symptoms, with isolated PVC, with normotensive response to exercise, with baseline T wave abnormailtiies no changes see. Nuclear images pending. Test reviewed with Dr. Eubanks. Referred By: Junior Eubanks Overread By: JUNIOR EUBANKS
--- NOTE | 2023-02-18 07:43 | CA_ITS ---
Transthoracic Echocardiogram Patient (Last, First, Middle): Sree Gan M Gender: Male Date of : 1965 Age: 57 Procedure Date: 02/18/2023 Procedure Type: Transthoracic Echocardiogram Location: OP Height: 170.18 cm Weight: 83.92 kg BSA: 1.96 m2 Heart Rate: 69 bpm BP: 142 / 80 mmHg Aquarium Tank Attendant: SB Referring MD: Rinku Harrell MD Symptoms: I25.10 - Atherosclerotic heart disease of [place] coronary artery without... Study Quality: Adequate ECG Rhythm: Sinus Conclusions: - The left ventricular systolic function is normal. The visually estimated ejection fraction is between 65-70%. - No obvious valvular pathology seen on this study. Findings Left Ventricle Normal left ventricular cavity size. There is normal left ventricular wall thickness. The left ventricular systolic function is normal. The visually estimated ejection fraction is between 65-70%. There is no evidence of regional wall motion abnormalities. Diastolic function is normal for age. Right Ventricle Normal right ventricular cavity size and systolic function. Atria Both atria are normal in size. Aortic Valve There is a normal trileaflet aortic valve. There is no aortic valve stenosis. There is no aortic valve regurgitation. Mitral Valve The mitral valve appears normal. There is trace mitral valve regurgitation. There is no mitral valve stenosis. Pulmonic Valve The pulmonic valve is likely normal. Tricuspid Valve Normal tricuspid valve structure. There is mild tricuspid valve regurgitation. There is no evidence of pulmonary hypertension. Great Vessels The asc aorta is normal in size. Venous The inferior vena cava is normal in size and collapses greater than 50% with inspiration. Pericardium/Pleural There is no evidence of pericardial effusion. Prior Study Comparison No prior study available for comparison. Recommendations, Care & Conclusions No obvious valvular pathology seen on this study. Measurements 2D Linear Measurements IVSd: 0.96 0.6-0.9/0.6-1.0 cm LVIDd: 3.77 3.9-5.3/4.2-5.9 cm LVIDd Index: 1.92 2.4-3.2/2.2-3.1 cm/m2 LVIDs: 2.45 2.0-3.6 cm LVPWd: 0.91 0.7-1.1 cm LA Diam: 3.20 2.7-3.8/3.0-4.0 cm LAIDs Index: 1.63 1.5-2.3 cm/m2 LV Mass: 131.06 67-162/88-224 g LV Mass Index: 66.86 43-95/49-115 g/m2 LVOT Diam: 2.00 3.0+(-)1.3 cm 2D Systolic Function EF Teich: 65.00 >55% EF 2C: 71.60 >55% Mitral Valve MV Pk E: 0.96 MV PK A: 0.89 MV Decel Time: 201.00 E/A: 1.10 E'Lateral: 9.36 E'Medial: 5.77 E/E' Med: 16.60 E/E' Lat: 10.30 PHT: 59.00 MVA PHT: 3.73 Decel Trinity: 4.78 Aortic Valve AoV Pk Booker: 1.34 AoV Pk Grad: 7.00 ANDREW: 2.58 LVOT LVOT Pk Booker: 1.13 LVOT Mn Booker: 0.80 LVOT VTI: 0.25 LVOT Pk Grad: 5.00 LVOT Mn Grad: 3.00 LVOT Diam: 2.00 LVOT Area: 3.14 Diastolic Function MV Pk E: 0.96 MV Pk A: 0.89 E/A: 1.10 E'Medial: 5.77 E/E' Med: 16.60 E' Laterial: 9.36 E/E' Lat: 10.30 Right Ventricle TAPSE (mm): 22.60 TVS' Booker: 13.60 Tricuspid Valve TR Pk Booker: 2.48 TR Pk Grad: 25.00 RA Press: 3.00 RVSP: 28.00 Great Vessels Aorta Sinus of Valsalva: 3.20 2.0-3.5 cm Ao Asc: 3.00 2.1-3.4 cm Pulmonary Veins Pulm Vein S/D 1.20 Pulmonary Valve PV Pk Booker: 1.32 Peak PV Grad: 7.00 Updated in Other Vendor System with Status of Final Rinku Harrell MD electronically signed on 02/18/2023 10:43:33 AM with status of Final
== END ==
LOC: HO.CARD 07:40
PROVIDERS: PCP Physician Assistant; Visit Provider Internal Medicine
DX: I25.10 Atherosclerotic heart disease of native coronary artery without angina pectoris (principal); R94.31 Abnormal electrocardiogram [ECG] [EKG]
CPT/HCPCS: 78452; 93017; 93306; A9500

== ENCOUNTER → 2023-02-18 07:43 | Outpatient (BNV) | payer OTHER, SELFPAY | PROVIDERS: PCP Physician Assistant; Visit Provider Internal Medicine | DX: R94.31 Abnormal electrocardiogram [ECG] [EKG] (principal) | CPT/HCPCS: 78452; 93016; 93018; 93306 ==

== ENCOUNTER 2023-03-13 15:18 | Outpatient (AMB) | payer OTHER, SELFPAY ==
--- NOTE | 2023-03-13 15:30 | MHC.OFFVIS ---
Intake Vital Signs 03/13/23 15:38 Height 5 ft 7 in Weight 190 lb 14.725 oz BMI 29.9 BP 155/78 H Blood Pressure Location Rt brachial Position Sitting Pulse 75 Intake Visit Reasons: 9 months follow up Intake Note: Patient presents to in office visit today in 9 month follow up. Patient reports doing well and denies having any GI issues or concerns today. Chemical Dependency Therapist Required: No Accompanied by: Self / Same As Patient [facility]ies [facility] Adverse Reaction (Intermediate, Verified 03/21/23 09:38) GI upset HPI 9 months follow up HPI Details Assessment & Plan (1) Multiple adenomatous polyps: Comment: 2019 scope=15 TA, 2021=3 TA repeat 1 year Code(s): D36.9 - Benign neoplasm, unspecified site Plan: I advised him of the results and that he ?only? have 3 polyps. This is a great improvement over the last scope when he had 10-15. He has genetic testing in the past when he was in [place] for his multiple polyposis syndrome. He tolerated the procedure well. He prefers the MIralax prep with dulcolax. We will do this next time. He finds this much less irritating and easier to use for his prep and of course there is no reason why we can accommodate this. He is quite agreeable to having a repeat scope in 1 year due to his significant history. I will have him back in 9 months to make sure we have enough lead time to review his history and make sure we can safely schedule the next procedure. 11/19/22-[address]: ORDERED: CBC No Diff Test Result Flag Refere nce Si te WBC 9.7 4.8-10. 8 X10*3/uL RBC 4.37 L 4.60-5.80 X10*6/uL H GB 13 .0 L 14.0-18.0 g /dl HCT 39.5 L 42.0-52.0 % MCV 90.4 80.0-98.0 fL MCH 29.7 27.0-33.0 pg MCHC 32.9 3 1.0-36.0 g/dl RDW 13.6 11. 0-16.0 % PLT 195 160-4 00 X10*3/uL MPV 12.2 9.4-12. 4 fL NRBC Pct Auto 0.0 0.0-0.2 / 100WBC N RBC Abs Auto 0.0 00 0.0-0.012 X 10*3/uL 11/19/22-[address]: ORDERED: CMP Fast, Lipid Panel, TSH Rflx Test Result Flag Refere nce Si te Sodium 140 135-145 mmol/L Potassium 4.4 3.3-5.1 m mol/L C L 10 4 96-108 mmol /L CO2 27 22-29 mmol/L Gap 13 12-20 BUN 14 9-16 mg/dL Creat 1.14 0 .5-1.4 mg/dL EGFR > 60 NOTE: F or -Claudia n individuals, mul tiply the result by 1. 210. Chronic Kidney D isease: Estimated GFR < 60 mL/min/1 .73m2 Sever e Kidney Disease: Estimated GFR < 1 5 mL/min/1.73m2 FBS 97 60-99 mg/d L CA 9.4 8.4-10.2 mg/ dL Tota l Bili 1.5 H 0.0-1.0 mg/dL AST (G OT) 84 H 5-37 U/L ALT (GPT ) 84 H 0-40 U/L Protein, T otal 7.2 6. 5-8.0 g/dL Alb 3.6 3.5- 5.0 g/dL Triglyceride 84 mg/dL Desirable T riglyceride: less than 150 mg/ dL Borderli ne High Triglyceri de 150-199 mg/dL High Trigly ceride: 200-499 mg/dL Very High Trig lyceride: gr eater than or equa l to 5OO mg/dL Chol 1 61 mg/dL Desirable Keshia sterol: les s than 200 mg/dL Borderline H igh Cholesterol: 200-239 mg/dL High Cholestero l: gre ater than 239 mg/d L LDL Calculated 85 mg/dl Desirable L DL: less than 100 mg/dL Near Optimal/Above Opti mal LDL: 110-129 mg/dL Borde rline High LDL: 130-159 mg/dL High LDL: 160-189 mg/dL Very High LDL: greater than or equal to 190 mg/dL HDL 60 mg/dL Desirable HDL: gr eater than 40 mg/d L * Note: This HD L assay may give a rtificially low results in patients with liver disease. A lk Phos 19 3 H 39-117 U/L TSH 1.89 0.32-4.0 uIU/ mL TODAY'S VISIT I last saw this patient 05/18/2022. He is here for repeat colonoscopy as he has a hx of multiple polyposis. No new medical hx, he just had a normal stress test. He prefers the Miralax and bisacodyl prep. ROV after scope. PFSH Medical History Elevated cholesterol Diabetes HTN (hypertension) Surgical History Hx of colonoscopy History of cataract extraction History of eye surgery History of removal of cyst Family History Father Diabetes Hypertension Mother Hypertension Diabetes Social History Housing: Apartment Are you a primary aged or disabled care worker to a significant other at home: No Do you presently have visiting nurse or other home services: No Alcohol intake: never Patient Tobacco Use Status: Never used Tobacco e-Cigarette/Vaping Use: Never Used Second Hand Smoke Exposure: No service: Yes Current occupational status: employed and retired () Current occupation: [employer] Cognitive needs: No Hearing needs: No Vision needs: Yes Review of Systems Const Denies fatigue, Denies fever(s), Denies night sweats, Denies poor appetite and Denies weight loss ENT Reports Normal hearing present, Denies dental pain, Denies dysphagia, Denies hearing loss, Denies mouth pain, Denies odynophagia, Denies throat swelling, Denies tongue swelling and Reports other (Dentition adequate) Card Reports no additional complaints Resp Reports no additional complaints GI Denies abdominal pain, Denies melena, Denies bloating, Denies hematochezia, Denies constipation, Denies GI cramping, Denies dysphagia, Denies excessive flatus, Denies early satiety, Denies heartburn, Denies diarrhea, Denies nausea, Denies odynophagia, Denies vomiting and Denies hematemesis Skin/Breast Denies pruritus, Denies lesions, Denies rash and Denies jaundice Neuro Reports Normal hearing present and Denies Abnormal speech present Endo Denies fatigue Aller/Immun Denies throat swelling and Denies tongue swelling Physical Exam Vital Signs: Last Vital Signs Pulse 75 03/13/23 15:38 BP 155/78 H 03/13/23 15:38 BMI result Body Mass Index 29.9 Const General: cooperative, no acute distress, well developed and well groomed Nutritional Appearance: well nourished and overweight Orientation/consciousness: oriented to person, oriented to place and oriented to time Limitations: No language barrier HEENT Head: Yes normocephalic and Yes atraumatic Eyes General: appearance normal, both eyes and all related structures Pupils: Equal, round and reactive pupils present Neck Neck: Yes normal visual inspection and Yes no lymphadenopathy Thyroid: Thyroid normal Resp Effort & Inspection: normal respiratory effort and able to speak in complete sentences Auscultation: clear to auscultation bilaterally Cardio Rate: regular rate Rhythm: regular rhythm Heart sounds: Normal, physiologic split S2 sound present Peripheral pulses: radial pulses present and posterior tibial pulses present GI Inspection: No distended, No Abdominal panniculus present and Yes obesity Palpation (GI): Soft to palpation, nontender, no guarding, not rigid and No hepatosplenomegaly present Percussion: Yes normal to percussion Auscultation: normal bowel sounds Rectal Exam - Male: Yes deferred Skin General skin exam: no rashes or lesions noted, turgor normal, skin not dry, no jaundice, No spider nevi and no striae Rashes: no rashes Nails: normal Neuro General: oriented to person, oriented to place and oriented to time Cranial nerves: Yes Equal, round and reactive pupils present and Yes Normal hearing present Speech: No Abnormal speech present Extrem General: Yes normal to inspection, No clubbing, No cyanosis and No edema Psych Appearance: grossly normal and well kempt Mental Status: mental status grossly normal Speech and movement: Normal speech and movement present Affect: normal affect Attitude: cooperative Thought process: Normal thought process present and not confabulating Thought content: Normal thought content present Insight: Fair insight present (Psych) Judgement: Fair judgement present (Psych) Assessment & Plan Assessment & Plan (1) Multiple adenomatous polyps: Comment: 2019 scope=15 TA, 2021=3 TA repeat 1 year Code(s): D36.9 - Benign neoplasm, unspecified site Plan: I last saw this patient 05/18/2022. He is here for repeat colonoscopy as he has a hx of multiple polyposis. No new medical hx, he just had a normal stress test. He prefers the Miralax and bisacodyl prep. ROV after scope. (2) Pre-op examination: Code(s): Z01.818 - Encounter for other preprocedural examination Orders: Orders Colonoscopy - GI Use Only 03/13/23 Medications: New polyethylene glycol 3350 (Miralax) 17 grams PO DAILY 1,020 grams 0RF 30 days D36.9 - Benign neoplasm, unspecified site bisacodyl (Dulcolax (bisacodyl)) 10 mg (2 x 5 mg) PO BEDTIME 4 tabs 0RF 2 days Coding Level of Care Code Est Pt Level 4 (73698) Diagnoses Multiple adenomatous polyps D36.9 Pre-op examination Z01.818
[2023-03-13 15:38] VITALS: BP 155/78; PULSE 75; BMI 29.9
== END 2023-03-13 16:25 | disposition home or self-care (01) ==
PROVIDERS: PCP Physician Assistant; Visit Provider Nurse Practitioner
DX: D36.9 Benign neoplasm, unspecified site (principal); Z01.818 Encounter for other preprocedural examination
CPT/HCPCS: 99214

== ENCOUNTER → 2023-03-13 15:18 | Outpatient (BNVA) | payer OTHER, SELFPAY | PROVIDERS: PCP Physician Assistant; Visit Provider Nurse Practitioner | DX: Z01.818 Encounter for other preprocedural examination (principal); D36.9 Benign neoplasm, unspecified site | CPT/HCPCS: 99212 ==

== ENCOUNTER 2023-03-21 09:32 | Outpatient (AMB) | payer OTHER, SELFPAY ==
[2023-03-21 09:34] VITALS: BP 160/82; PULSE 68; BMI 30.3
--- NOTE | 2023-03-21 09:34 | A.OFFVIS_ITS ---
Intake Vital Signs 03/21/23 09:34 Height 5 ft 7 in Weight 193 lb 9.054 oz BMI 30.3 BP 160/82 H Blood Pressure Location Lt brachial Position Sitting Pulse 68 Pulse Source Pulse Oximeter Intake Visit Reasons: 4 month follow up after testing Intake Note: 4 month f/u after testing Forensic Psychologist Required: No Allergies dulaglutide [From [facility]] Adverse Reaction (Intermediate, Verified 03/21/23 09:38) GI upset Medication List - Last Reconciled 03/21/23 by Katey Benítez, VOICE ENGINEER-C bisacodyl (Dulcolax (bisacodyl)) 10 mg (2 x 5 mg) PO BEDTIME 2 days blood sugar diagnostic (FreeStyle Lite Strips) As directed blood-glucose meter (FreeStyle [place] Lite kit) As directed blood-glucose meter (FreeStyle [place] Lite kit) As directed insulin glargine (Lantus Solostar U-100 Insulin) 24 units (0.24 mL) subcut QPM 30 days lancets (FreeStyle Lancets) As directed lisinopril-hydrochlorothiazide 20-12.5 mg 1 tab PO DAILY pen needle, diabetic (BD Ultra-Fine Anaya Pen Needle) As directed polyethylene glycol 3350 (Miralax) 17 grams PO DAILY 30 days sildenafil (Viagra) 100 mg PO DAILY 90 days simvastatin 10 mg PO DAILY sitagliptin phos-metformin 50-1,000 mg (Janumet) 1 tab PO BID 90 days HPI 4 month follow up after testing HPI Details Sree is a 57 year old male with past medical history of hypertension, hyperlipidemia, diabetes who underwent recent cardiac evaluation for abnormal finding on EKG. Today he reports he has been feeling well with no concerning symptoms. He denies chest discomfort at rest or with activity. No shortness of breath, palpitations, dizziness, presyncope, syncope, PND, orthopnea or edema. He walks frequently at work and tolerates without concerning symptoms. Taking meds as directed. Home blood pressures ranging 130-140s systolic. [facility] Medical History Elevated cholesterol Diabetes HTN (hypertension) Surgical History Hx of colonoscopy History of cataract extraction History of eye surgery History of removal of cyst Family History Father Diabetes Hypertension Mother Hypertension Diabetes Social History Housing: Apartment Are you a primary technical healthcare consultant to a significant other at home: No Do you presently have visiting nurse or other home services: No Alcohol intake: never Patient Tobacco Use Status: Never used Tobacco e-Cigarette/Vaping Use: Never Used Second Hand Smoke Exposure: No service: Yes Current occupational status: employed and retired ([employer]) Current occupation: [employer] Cognitive needs: No Hearing needs: No Vision needs: Yes Review of Systems Const All systems reviewed & are unremarkable except as noted in HPI and below ENT Denies dizziness Card Denies chest pain, Denies chest pain at rest, Denies chest pain with activity, Denies rapid heart rate, Denies pedal edema, Denies edema, Denies leg edema, Denies lightheadedness, Denies palpitations, Denies dyspnea, Denies dyspnea on exertion and Denies orthopnea Resp Denies cough, Denies dyspnea and Denies dyspnea on exertion GI Denies hematochezia and Denies change in stool character Musc Denies abnormal gait, Denies limited range of motion, Denies muscle cramps, Denies muscle weakness, Denies numbness, Denies radiating pain into limb, Denies stiffness and Denies tingling Neuro Denies abnormal gait, Denies dizziness, Denies numbness and Denies tingling Endo Denies palpitations Physical Exam Vital Signs: Last Vital Signs Pulse 68 03/21/23 09:34 BP 160/82 H 03/21/23 09:34 BMI result Body Mass Index 30.3 Const General: cooperative, healthy appearing, comfortable and no acute distress Orientation/consciousness: patient oriented x3 Neck Neck: Yes normal visual inspection Resp Effort & Inspection: normal respiratory effort Auscultation: clear to auscultation bilaterally, no crackles, no rales, no rhonchi and no wheezes Cardio Jugular venous distension: no JVD Rate: regular rate Rhythm: regular rhythm Heart sounds: S1 normal heart sound present, S2 normal heart sound present, no murmurs and no rubs Neuro General: patient oriented x3 Extrem General: Yes normal to inspection and No no pedal edema Psych Appearance: grossly normal Mental Status: mental status grossly normal Speech and movement: Normal speech and movement present Assessment & Plan Assessment & Plan (1) Abnormal EKG: Code(s): R94.31 - Abnormal electrocardiogram [ECG] [EKG] Plan: Recent EKG with findings of ST and T-wave abnormality inferiorly. Finding felt to be nonspecific verses possible ischemic changes inferiorly. He had no reports of anginal sounding symptoms. Cardiac risks of hypertension, hyperlipidemia, diabetes. Echocardiogram done 02/18/2023 showed EF 65-70%, no valve abnormalities. A exercise nuclear stress test done 02/18/2023 showed exercise 7-1/2 minutes with no anginal symptoms, no EKG changes and normal myocardial perfusion imaging. Reviewed the test results with him in detail. Signs and symptoms of angina reviewed with him. Continue risk factor modification with good blood pressure, blood sugar and cholesterol control. Continue activity as tolerated, weight loss reviewed. Cardiology follow-up as needed. (2) HTN (hypertension): Code(s): I10 - Essential (primary) hypertension Qualifiers: Hypertension type: essential hypertension Qualified Code(s): I10 - Essential (primary) hypertension Plan: Leivasy blood pressure goal less than 130/85. Blood pressure elevated at this visit and on another recent office visit. He is on lisinopril 20 mg/hydrochlorothiazide 12.5 mg daily. He reports med compliance. Labs done 11/19/2022 shows potassium 4.4, creatinine 1.14. I will take the liberty to increase his hydrochlorothiazide dose. His follow-up with his PCP next month. Blood pressure can be re-evaluated at that time. If continues to be elevated then the lisinopril portion of his med can be increased as well. (3) DMII (diabetes mellitus, type 2): Code(s): E11.9 - Type 2 diabetes mellitus without complications Qualifiers: Diabetes mellitus shelter insulin use: without shelter use Diabetes mellitus complication status: without complication Qualified Code(s): E11.9 - Type 2 diabetes mellitus without complications Plan: Hemoglobin A1c goal less than 7. Labs 11/21/2022 show hemoglobin A1c 6.5. Managed by his PCP (4) HLD (hyperlipidemia): Code(s): E78.5 - Hyperlipidemia, unspecified Qualifiers: Hyperlipidemia type: mixed hyperlipidemia Qualified Code(s): E78.2 - Mixed hyperlipidemia Plan: Leivasy LDL goal less than 70 in patient with diabetes. Labs 11/19/2022 showed LDL 85. He is on simvastatin 10 mg daily. Recommend increase in dose or change to higher intensity statin. Medications: New lisinopril-hydrochlorothiazide 20-25 mg 1 tab PO DAILY 30 tabs 3RF Discontinued lisinopril-hydrochlorothiazide 20-12.5 mg Discontinued Reason: Doctor's Order 1 tab PO DAILY 90 tabs 1RF I10 - Essential (primary) hypertension Coding Level of Care Code Est Pt Level 3 (42048) Diagnoses Abnormal EKG R94.31 Essential hypertension I10 Hypertension type: essential hypertension Type 2 diabetes mellitus without complication, without long-term current use of insulin E11.9 Diabetes mellitus shelter insulin use: without shelter use Diabetes mellitus complication status: without complication Mixed hyperlipidemia E78.2 Hyperlipidemia type: mixed hyperlipidemia Time Spent (min) 22
== END 2023-03-21 10:18 | disposition home or self-care (01) ==
PROVIDERS: PCP Physician Assistant; Visit Provider Nurse Practitioner Family
DX: R94.31 Abnormal electrocardiogram [ECG] [EKG] (principal); I10 Essential (primary) hypertension; E11.9 Type 2 diabetes mellitus without complications; E78.2 Mixed hyperlipidemia
CPT/HCPCS: 99213

== ENCOUNTER → 2023-03-21 09:32 | Outpatient (BNVA) | payer OTHER, SELFPAY | PROVIDERS: PCP Physician Assistant; Visit Provider Nurse Practitioner Family | DX: R94.31 Abnormal electrocardiogram [ECG] [EKG] (principal); I10 Essential (primary) hypertension; E11.9 Type 2 diabetes mellitus without complications; E78.5 Hyperlipidemia, unspecified; Z79.899 Other long term (current) drug therapy | CPT/HCPCS: 99212 ==

== ENCOUNTER 2023-05-25 07:38 | Outpatient (REF) | payer OTHER, SELFPAY ==
[2023-05-25 08:04] LABS: Hematocrit 40.8 % (42.0-52.0); Hemoglobin 13.3 g/dl (14.0-18.0); Mean Corpuscular HGB Conc 32.6 g/dl (31.0-36.0); Mean Corpuscular Hemoglobin 30.3 pg (27.0-33.0); Mean Corpuscular Volume 92.9 fL (80.0-98.0); Mean Platelet Volume 11.7 fL (9.4-12.4); Platelet Count 205 X10*3/uL (160-400); Red Blood Count 4.39 X10*6/uL (4.60-5.80); Red Cell Distribution Width 13.3 % (11.0-16.0); White Blood Count 9.2 X10*3/uL (4.8-10.8)
[2023-05-25 08:28] LABS: Alanine Aminotransferase 107 U/L (0-40); Albumin Level 3.5 g/dL (3.5-5.0); Alkaline Phosphatase 243 U/L (39-117); Anion Gap 11 (12-20); Aspartate Amino Transferase 103 U/L (5-37); Bilirubin Total 1.5 mg/dL (0.0-1.0); Blood Urea Nitrogen 18 mg/dL (9-16); Calcium 9.3 mg/dL (8.4-10.2); Carbon Dioxide 28 mmol/L (22-29); Chloride 104 mmol/L (96-108); Estimated Glomerular Filt Rate 58; Glucose Fasting 204 mg/dL (60-99); Potassium 4.3 mmol/L (3.3-5.1); Sodium 139 mmol/L (135-145)
[2023-05-25 08:52] LABS: Prostate Specific Antigen Scr 0.65 ng/mL (<0.05-4.0)
== END 2023-05-25 07:39 | disposition home or self-care (01) ==
LOC: HO.LAB 07:38
PROVIDERS: PCP Physician Assistant; Visit Provider Physician Assistant
DX: Z12.5 Encounter for screening for malignant neoplasm of prostate (principal); E11.9 Type 2 diabetes mellitus without complications
CPT/HCPCS: 36415; 80053; 84153; 85027

== ENCOUNTER 2023-05-29 15:24 | Outpatient (AMB) | payer OTHER, SELFPAY ==
[2023-05-29 16:00] VITALS: BP 172/94; PULSE 65; O2SAT 98; BMI 29.8
--- NOTE | 2023-05-29 16:00 | A.OFFPC_ITS ---
Vital Signs 05/29/23 16:00 05/29/23 16:59 Height 5 ft 7 in Weight 190 lb 6 oz BMI 29.8 BP 172/94 H 130/78 Blood Pressure Location Rt brachial Position Sitting Pulse 65 Pulse Source Pulse Oximeter Pulse Oximetry (%) 98 Oxygen Delivery Method Room Air Intake Visit Reasons: 4 month f/u [employer] Chair Required: No Accompanied by: Self / Same As Patient Allergies [facility] [[facility] Adverse Reaction (Intermediate, Verified 05/29/23 16:51) GI upset Medication List - Last Reconciled 05/29/23 by Khadar Arciniega PA-C bisacodyl (Dulcolax (bisacodyl)) 10 mg (2 x 5 mg) PO BEDTIME 2 days blood sugar diagnostic (FreeStyle Lite Strips) As directed blood-glucose meter (FreeStyle [place] Lite kit) As directed blood-glucose meter (FreeStyle [place] Lite kit) As directed insulin glargine (Lantus Solostar U-100 Insulin) 24 units (0.24 mL) subcut QPM 30 days lancets (FreeStyle Lancets) As directed lisinopril-hydrochlorothiazide 20-25 mg 1 tab PO DAILY pen needle, diabetic (BD Ultra-Fine Anaya Pen Needle) As directed polyethylene glycol 3350 (Miralax) 17 grams PO DAILY 30 days sildenafil (Viagra) 100 mg PO DAILY 90 days simvastatin 10 mg PO DAILY sitagliptin phos-metformin 50-1,000 mg (Janumet) 1 tab PO BID 90 days Tobacco use date assessed: 11/21/22 Dental Screening Dental Screen Date: 05/29/23 Did you have a dental visit in the last 12 months?: No Did you have a dental problem in the last 6 months where you did not have access to dental care?: No Was dental information given to patient?: Patient has dentist HPI 4 month f/u HPI Details Patient is a 58-year-old male here today for follow-up visit. ?Patient has a past medical history significant for HTN, type 2 diabetes, liver disease. Has recently underwent cardiac stress testing which did not show any ischemic evidence been .. Type 2 diabetes:? Patient's A1c still above goal of 7. He continues on Lantus 24 units. Will increase to 26 units daily. He does report some bloating since taking insulin. No notable significant weight gain Of note was not able to tolerate Trulicity due to GI side effects. ? .. Elevated liver enzymes: Liver enzymes remained elevated. Did have ultrasound of his liver in 2021 showing--> Echogenic heterogeneous liver echotexture questionable for hepatocellular disease. .. Hypertension:? Has not been regularly checking his blood pressure at home and reports 130s systolic. Today's blood pressure elevated in office. Has been started on higher dose of blood pressure medication. patient denies any chest pain, shortness of breath, headaches. Borderline high cholesterol:? We have started low-dose statin therapy? and LDL now at goal below 100 Laboratory Tests 11/19/22 11/19/22 05/25/23 06:08 06:08 07:54 RBC 4.39 L Hgb 13.3 L Fasting Glucose Hgb A1c (Clinic) AST 84 H ALT 84 H Alkaline Phosphata se 193 H 243 H PSA Screen 05/25/23 05/25/23 05/25/23 07:54 07:54 07:54 RBC Hgb Fasting Glucose 204 H Hgb A1c (Clinic) AST 103 H ALT 107 H Alkaline Phosphata se PSA Screen 0.65 05/29/23 15:30 RBC Hgb Fasting Glucose Hgb A1c (Clinic) 7.9 H AST ALT Alkaline Phosphata se PSA Screen PFSH Medical History Elevated cholesterol Diabetes HTN (hypertension) Surgical History Hx of colonoscopy History of cataract extraction History of eye surgery History of removal of cyst Family History Father Diabetes Hypertension Mother Hypertension Diabetes Social History Housing: Apartment Are you a primary vp care management to a significant other at home: No Do you presently have visiting nurse or other home services: No Alcohol intake: never Patient Tobacco Use Status: Never used Tobacco e-Cigarette/Vaping Use: Never Used Second Hand Smoke Exposure: No service: Yes Current occupational status: employed and retired () Current occupation: [employer] Cognitive needs: No Hearing needs: No Vision needs: Yes Questionnaire Thrive Questionnaire Date Thrive assessed: 11/21/22 RADHA-7 AMB Questionnaire RADHA-7 Date RADHA - 7 assessed: 11/21/22 Source: Developed by Drs. Yony Rosales, Anuja Vega, Chad Juarez and colleagues, with an educational nathanael from [employer]. Review of Systems Const Denies headache(s) Eyes Denies loss of vision ENT Denies vertigo, Denies dizziness, Denies headache(s) and Denies sore throat Card Denies chest pain, Denies leg edema and Denies lightheadedness Resp Denies cough, Denies hemoptysis and Denies wheezing GI Denies abdominal pain, Denies melena, Denies constipation, Denies diarrhea and Denies vomiting Denies dysuria, Denies urinary frequency and Denies urinary urgency Musc Denies arthralgias, Denies joint swelling, Denies numbness and Denies tingling Neuro Denies Abnormal speech present, Denies behavioral changes, Denies vertigo, Denies dizziness, Denies headache(s), Denies loss of vision, Denies memory loss, Denies numbness and Denies tingling Psych Denies anxiety, Denies behavioral changes, Denies depression, Denies memory loss and Denies panic attacks James/Lymph Denies easy bleeding and Denies easy bruising Aller/Immun Denies wheezing Physical exam (Primary Care) Vital Signs: Last Vital Signs Pulse 65 05/29/23 16:00 BP 130/78 05/29/23 16:59 Pulse Ox 98 05/29/23 16:00 Oxygen Delivery Method Room Air 05/29/23 16:00 BMI result Body Mass Index 29.8 Tobacco/Smoking Status: Tobacco use Status Tobacco use date assessed 11/21/22 05/29/23 16:08 Patient Tobacco Use Status Never used Tobacco 05/29/23 16:08 e-Cigarette/Vaping Use Never Used 05/29/23 16:08 Thrive Assessment: Date of Thrive Assessment Date Thrive assessed 11/21/22 05/29/23 16:08 Const General: healthy appearing, no acute distress, alert and awake Nutritional Appearance: well nourished Orientation/consciousness: oriented to person, oriented to place and oriented to time HENMT Ears: TM's normal bilaterally General nose exam: Normal nasal mucous membranes and turbinates present Eyes Conjunctivae: conjunctivae normal Sclerae: sclerae normal Pupils: Equal, round and reactive pupils present Neck Neck: Yes no lymphadenopathy and Yes no JVD Thyroid: Thyroid normal Carotids: no bruits Resp Effort & Inspection: normal respiratory effort and not tachypneic Auscultation: no crackles, no rales, no rhonchi and no wheezes Cardio Rate: regular rate Rhythm: regular rhythm Heart sounds: no murmurs and normal S1 and S2 GI Palpation (GI): Soft to palpation, nontender, no hepatomegaly and no splenomegaly Auscultation: normal bowel sounds Skin General skin exam: no rashes or lesions noted and dry skin Neuro General: oriented to person, oriented to place and oriented to time Cranial nerves: Yes Equal, round and reactive pupils present Speech: No Abnormal speech present Gait exam (Neuro): Normal gait present Motor exam (neuro): no tremor noted Extrem Right upper extremity: full ROM Left upper extremity: full ROM Right lower extremity: full ROM; no edema Left lower extremity: full ROM; no edema Psych Mental Status: mental status grossly normal Speech and movement: Normal speech and movement present Affect: normal affect Attitude: cooperative Thought process: Normal thought process present Office Procedures Flu Questionnaire Does the patient have a severe egg allergy?: No Does the patient have severe life threatening allergies?: No Does the patient have a fever or illness today?: No Has the patient ever had Guillain-[place] Syndrome?: No Has the patient ever had any past reaction to a flu shot?: No Results AMB Hemoglobin A1c AMB Hemoglobin A1c 7.9 % Last Edit by Nancy Rodriguez on 05/29/23 16:09 Immunizations flu vacc [id number] 6mos up(PF) 60 mcg(15 mcgx4)/0.5 mL IM syringe Performing Provider: Khadar Arciniega PA-C Performing Location: [facility] Administered by: ALEXANDER Ordaz on 05/29/23 16:10 Dose Route Admin Location Dispensed Lot Number Expiration Date NDC Supervisor [employer] 0.5 mL IM Right Deltoid 0.5 mL [id number] 12/29/23 93369-219-19 [employer] VIS Given Date VIS Provided VIS Publication Date 05/29/23 Single Vaccine 21 Eligibility Eligibility Date Funding Source Not [facility] Eligible 05/29/23 Private Results Reviewed Results Reviewed: Laboratory Last Values Hgb A1c (Clinic) 7.9 % (4.0-6.0) H 05/29/23 15:30 Assessment and Plan Assessment & Plan (1) HTN (hypertension): Code(s): I10 - Essential (primary) hypertension Qualifiers: Hypertension type: essential hypertension Qualified Code(s): I10 - Essential (primary) hypertension Plan: Patient's blood pressure initially elevated today in office. On recheck blood pressure improved. Has increase his dose of blood pressure medication. Has not been checking his blood pressure at home advised to start doing so. Will consider adding amlodipine to his blood pressure med regime. Goal blood pressure to be below 140/90 (2) DMII (diabetes mellitus, type 2): Code(s): E11.9 - Type 2 diabetes mellitus without complications Qualifiers: Diabetes mellitus complication status: without complication Diabetes mellitus oil heaterman insulin use: without fdc use Qualified Code(s): E11.9 - Type 2 diabetes mellitus without complications Plan: Patient's type 2 diabetes suboptimally controlled with Lantus 20 units daily and Janumet. Increase his Lantus dose to 26 units. Will continue current regime with goal A1c to be below 7.0 (3) Hepatocellular injury: Code(s): K76.9 - Liver disease, unspecified Plan: Patient's liver enzymes continue to be elevated. Most recent ultrasound does show consistent with fatty liver disease . Will hold statin therapy and recheck liver enzymes and 2 weeks Will get repeat ultrasound of liver to evaluate for evidence of cirrhosis. (4) HLD (hyperlipidemia): Code(s): E78.5 - Hyperlipidemia, unspecified Qualifiers: Hyperlipidemia type: mixed hyperlipidemia Qualified Code(s): E78.2 - Mixed hyperlipidemia Plan: Patient's lipid panel acceptable with goal LDL below 100. For now will hold his statin therapies see if this is the reason for his elevated liver enzymes Orders: Orders Lipid Panel 05/29/23 E78.2 - Mixed hyperlipidemia AMB Hemoglobin A1c 05/29/23 E11.9 - Type 2 diabetes mellitus without complications Influenza [id number] Immunization 05/29/23 Z23 - Encounter for immunization US abdomen complete 05/29/23 K76.9 - Liver disease, unspecified Microalbumin, Random (w Creat) 05/29/23 I10 - Essential (primary) hypertension Comprehensive [place]. Panel Fast 05/29/23 I10 - Essential (primary) hypertension Complete Blood Count no Diff 05/29/23 I10 - Essential (primary) hypertension Liver Panel 2 Weeks R74.8 - Abnormal levels of other serum enzymes Ammonia 2 Weeks R74.8 - Abnormal levels of other serum enzymes Medications: Refilled simvastatin 10 mg PO DAILY 90 tabs 1RF E11.9 - Type 2 diabetes mellitus without complications Coding Level of Care Code Est Pt Level 4 (23611) Diagnoses Essential hypertension I10 Hypertension type: essential hypertension Type 2 diabetes mellitus without complication, without long-term current use of insulin E11.9 Diabetes mellitus complication status: without complication Diabetes mellitus oil heaterman insulin use: without fdc use Hepatocellular injury K76.9 Mixed hyperlipidemia E78.2 Hyperlipidemia type: mixed hyperlipidemia
[2023-05-29 16:59] VITALS: BP 130/78
== END 2023-05-29 17:05 | disposition home or self-care (01) ==
PROVIDERS: PCP Physician Assistant; Visit Provider Physician Assistant
DX: Z23 Encounter for immunization (principal); E11.9 Type 2 diabetes mellitus without complications
CPT/HCPCS: 83036; 90471; 90686; 99214

== ENCOUNTER 2023-07-05 09:38 | Outpatient (REF) | payer OTHER, SELFPAY | END 2023-07-05 09:39 | disposition home or self-care (01) | LOC: HO.US 09:38 | PROVIDERS: PCP Physician Assistant; Visit Provider Physician Assistant | DX: K76.9 Liver disease, unspecified (principal) | CPT/HCPCS: 76700 ==

== ENCOUNTER 2023-07-08 07:33 | Day surgery (SDC) | payer OTHER, SELFPAY ==
[2023-07-04 14:37] VITALS: BMI 29.8
--- NOTE | 2023-07-05 11:47 | HO.ANESPROP2 ---
Documented by User: Yumiko Gregory NP 07/05/23 11:51 HPI - Anesthesia Eval Consult details Narrative: 58yo M for Colonoscopy Cardiac w/u 01/2023 for abnormal EKG WNL PMFSH Active Problems Active Problems: All Active Problems (Updated 03/27/23 @ 19:09 by MEGAN Contreras) Pre-op examination (Acute) Erectile dysfunction (Acute) Abnormal EKG (Acute) HTN (hypertension) (Acute) DMII (diabetes mellitus, type 2) (Acute) Fatigue (Acute) Annual physical exam (Acute) Screening-pulmonary TB (Acute) Multiple adenomatous polyps (Acute) Elevated liver enzymes (Acute) Postprandial abdominal bloating (Acute) Cataract (Acute) Hepatocellular injury (Acute) Preoperative clearance (Acute) First degree AV block (Acute) HLD (hyperlipidemia) (Acute) Past Medical History Medical History Elevated cholesterol Diabetes HTN (hypertension) Family History Family History Father Diabetes Hypertension Mother Hypertension Diabetes Family history of problems with anesthesia: No Surgical History Surgical History Hx of colonoscopy History of cataract extraction History of eye surgery History of removal of cyst History of Problems with Anesthesia: No Social History Social History Housing: Apartment Are you a primary career resource technician to a significant other at home: No Do you presently have visiting nurse or other home services: No Alcohol intake: never Patient Tobacco Use Status: Never used Tobacco e-Cigarette/Vaping Use: Never Used Second Hand Smoke Exposure: No Use of substances other than those prescribed or required for medical reasons: No Are you DNR?: No Advance Directives: No Advance Directives Information Provided: Yes service: Yes Current occupational status: employed and retired () Current occupation: [employer] Cognitive needs: No Hearing needs: No Vision needs: Yes Meds Allergies Allergy/AdvReac Type Severity Reaction Status Date / Time dulaglutide [From Trulicity] AdvReac Intermediate GI upset Verified 05/29/23 16:51 Exam Height,Weight and Vital Signs: Height 5 ft 7 in Weight 86.183 kg Pertinent Lab Results Pertinent Lab Results: Laboratory Tests 05/25/23 07:54 WBC 9.2 Hgb 13.3 L Hct 40.8 L Plt Count 205 Sodium 139 Potassium 4.3 Chloride 104 Carbon Dioxide 28 BUN 18 H Creatinine 1.27 Narrative Narrative: EKG 10/2022 NSR T wave abn, ? ischemia ECHO 01/2023 Conclusions: - The left ventricular systolic function is normal. The visually estimated ejection fraction is between 65-70%. - No obvious valvular pathology seen on this study. NM cardiolite stress test 01/2023 Impression: 1. Normal myocardial perfusion 2. Gated LVEF is 67% 3. Transient ischemic dilatation not present Stress EKG is negative for ischemia Assessment and Plan Assessment Anesthesia Assessment: Chart Reviewed Final Anesthetic Review Family History of Problems with Anesthesia: No History of Problems with Anesthesia: No Documented by User: Anali House MD 07/08/23 09:34 [facility] Past Medical History Medical History Elevated cholesterol Diabetes HTN (hypertension) Functional capacity: wheelchair bound Family History Family History Father Diabetes Hypertension Mother Hypertension Diabetes Surgical History Surgical History Hx of colonoscopy History of cataract extraction History of eye surgery History of removal of cyst Social History Social History Housing: Apartment Are you a primary career resource technician to a significant other at home: No Do you presently have visiting nurse or other home services: No Alcohol intake: never Patient Tobacco Use Status: Never used Tobacco e-Cigarette/Vaping Use: Never Used Second Hand Smoke Exposure: No Use of substances other than those prescribed or required for medical reasons: No Are you DNR?: No Advance Directives: No Advance Directives Information Provided: Yes service: Yes Current occupational status: employed and retired () Current occupation: [employer] Cognitive needs: No Hearing needs: No Vision needs: Yes Meds Allergies Allergy/AdvReac Type Severity Reaction Status Date / Time dulaglutide [From Trulicity] AdvReac Intermediate GI upset Verified 05/29/23 16:51 Exam Airway Mallampati Class: III TM Dist: >3cm Neck ROM: Full Loose/Missing/Broken Teeth: No Heart: RRR Lungs: CTA Assessment and Plan Assessment Anesthesia Assessment: Anesthesia Plan Discussed Final Anesthetic Review NPO: Yes ASA Class: II Final Preanesthetic Review: Meds/Allgs Chart Reviewed, Consent Obtained/Reviewed and Anes Risks/Benef Reviewed Patient Risk: Low Procedure Risk: Low Anesthetic Plan Anesthetic Plan: MAC: Disposition: Standard PACU
[2023-07-08 09:05] VITALS: BP 155/69; PULSE 75; RESP 20; TEMP 36.7; O2SAT 98
--- NOTE | 2023-07-08 10:20 | MHC.SHP ---
Pre-Procedural Eval Section A Date of Service: 07/08/23 The patient is an INPATIENT: No The History & Physical has been completed within 30 days and I have reviewed it.: No Section B Chief Complaint: Surveillance for colon polyps Relevant Family History (Specify if Yes): No Relevant Social History: None Present Medications: see Short Stay Collaborative assessment Medical History: Significant History (Elevated cholesterol Diabetes HTN (hypertension)) History of Previous Operations: Relevant previous surgery/procedure and date(s) (Hx of colonoscopy History of cataract extraction History of eye surgery History of removal of cyst) Allergies: Allergies Allergy/AdvReac Type Severity Reaction Status Date / Time dulaglutide [From Trulicity] AdvReac Intermediate GI upset Verified 05/29/23 16:51 Review of Systems Sugical H&P ROS: Negative: Constitution, Cardiovascular, Respiratory and Gastrointestinal Exam Surgical H&P Exam: Normal: Heart, Normal: Lungs, Normal: Extremities and Normal: Abdomen Plan Diagnosis/Plan: Unchanged I have reviewed the history and physical and performed a pertinent physical examination on my patient. No changes have occurred unless specified. Time Spent With Patient Time: Total time managing care of this patient today ____ minutes.
--- NOTE | 2023-07-08 10:34 | W.PM.OPN ---
Operative Note Operative Note Date of Service: 07/08/23 Narrative: COLONOSCOPY TILL CECUM WITH BIOPSIES, SNARE POLYPECTOMY AND HEMOCLIP PLACEMENT Pre-op diagnosis: Surveillance for multiple colon polyps Post-op diagnosis:? Colon polyps, diverticulosis, hemorrhoids Endoscopist:? Dru Durbin MD Anesthesia:?MAC Consent: Indications for the procedure and potential complications of bleeding, perforation, reaction to medications and missed diagnosis were discussed with the patient and informed consent was obtained. Instrument: Olympus CF H 190 L variable stiffness adult colonoscope Monitoring: Vital signs and clinical assessment, intermittent blood pressure monitoring, continuous EKG monitoring, Pulse oximetry and Carbon Dioxide monitoring were done throughout the procedure. Please see anesthesia flowsheet. Colon withdrawl time was 40 minutes. Procedure: The patient was placed in the left lateral decubitis position and pre-procedure medications were administered. After a digital rectal examination of the ano-rectum, the video colonoscope was inserted into the rectum and advanced through the colon to the cecum. The colonoscope was slowly withdrawn in a retrograde panoramic fashion and the colon mucosa was carefully examined including a retroflexed view of the rectum. Findings and interventions are described below. Procedure Difficulty: Without difficulty Findings: Terminal Ileum: Not evaluated Cecum: Normal Ascending Colon: A 4-5 mm sessile polyp - removed with a cold bx. A 10 mm sessile polyp - removed with a hot snare. A 2.5 cms erythematous fold at 85 cms - biopsied. Transverse Colon: Two 4-5 mm sessile polyp removed with a cold bx Ten 10- 18 mm sessile polyps - removed with a hot snare Descending Colon: Moderate diverticulosis Sigmoid Colon: Five 10-15 mm sessile polyps - removed with a hot snare. One polypectomy site was closed with one hemoclip. Moderate diverticulosis Rectum: Normal Ano-rectum: Moderate internal hemorrhoids Colon preparation: Good [place] Bowel Preparation Scale Right colon; 2 Transverse colon: 2 Left colon; 2 (0 = Unprepared colon segment with mucosa not seen due to solid stool that cannot be cleared. 1 = Portion of mucosa of the colon segment seen, but other areas of the colon segment not well seen due to staining, residual stool and/or opaque liquid. 2 = Minor amount of residual staining, small fragments of stool and/or opaque liquid, but mucosa of colon segment seen well. 3 = Entire mucosa of colon segment seen well with no residual staining, small fragments of stool or opaque liquid) Impression and Post Procedure Diagnosis: Colonoscopy Findings: Nineteen small to medium sized polyps removed Moderate diverticulosis seen in the left colon Moderate hemorrhoids on retroflexed exam. Plan: Await pathology results Patient has an appointment on 07/23/23 in the GI Clinic with Payton Dominguez NP. Repeat Colonoscopy interval based on path results - in 1 year if polyps are adenomatous and due to a history of multiple colon polyps Pt has had 4 colonoscopies over a four year interval and continues to have multiple colon polyps - surgical evaluation for a sub total colectomy needs to be considered. Colon polyps handout was given in the discharge area
[2023-07-08 11:35] VITALS: BP 108/61; PULSE 63; RESP 18; TEMP 36.2; O2SAT 100
[2023-07-08 11:50] VITALS: BP 127/70; PULSE 63; RESP 18; O2SAT 98
[2023-07-08 12:05] VITALS: BP 137/74; PULSE 63; RESP 18; TEMP 36.8; O2SAT 98
== END 2023-07-08 12:18 | disposition home or self-care (01) ==
PROVIDERS: PCP Physician Assistant; Visit Provider Internal Medicine Gastroenterology
PROC: 0DJD8ZZ Inspection of Lower Intestinal Tract, Via Natural or Artificial Opening Endoscopic (ICD-10-PCS; CPT 45378; principal; 2023-07-08 10:10)
DX: Z12.11 Encounter for screening for malignant neoplasm of colon (principal); Z86.010 Personal history of colon polyps; D12.2 Benign neoplasm of ascending colon; D12.3 Benign neoplasm of transverse colon; D12.5 Benign neoplasm of sigmoid colon; K57.30 Diverticulosis of large intestine without perforation or abscess without bleeding; K64.8 Other hemorrhoids; I10 Essential (primary) hypertension; E78.00 Pure hypercholesterolemia, unspecified; E11.9 Type 2 diabetes mellitus without complications; Z79.4 Long term (current) use of insulin; Z79.899 Other long term (current) drug therapy; Z79.84 Long term (current) use of oral hypoglycemic drugs; Z88.8 Allergy status to other drugs, medicaments and biological substances
CPT/HCPCS: 45385; 45380; 82947; 88305; J2704

== ENCOUNTER → 2023-07-08 07:33 | Outpatient (BNV) | payer OTHER, SELFPAY | PROVIDERS: PCP Physician Assistant; Visit Provider Internal Medicine Gastroenterology | DX: Z12.11 Encounter for screening for malignant neoplasm of colon (principal); D12.2 Benign neoplasm of ascending colon; D12.3 Benign neoplasm of transverse colon; D12.5 Benign neoplasm of sigmoid colon; K57.30 Diverticulosis of large intestine without perforation or abscess without bleeding; K64.8 Other hemorrhoids | CPT/HCPCS: 45380; 45385 ==

== ENCOUNTER 2023-07-23 14:56 | Outpatient (AMB) | payer OTHER, SELFPAY ==
[2023-07-23 14:59] VITALS: BP 152/68; PULSE 71; BMI 30.2
--- NOTE | 2023-07-23 14:59 | A.OFFVIS_ITS ---
Intake Vital Signs 07/23/23 14:59 Height 5 ft 7 in Weight 192 lb 10.944 oz BMI 30.2 BP 152/68 H Blood Pressure Location Lt brachial Position Sitting Pulse 71 Intake Visit Reasons: s/p colon Ramakrishna Intake Note: Patient returns to in office visit today in follow up of colonoscopy with Dr. Durbin. CC: Patient reports doing well and denies having any GI symptoms or concerns today. He underwent Allergies [facility]ulaglutide [[facility] Adverse Reaction (Intermediate, Verified 07/23/23 15:02) GI upset HPI s/p colon Ramakrishna HPI Details Assessment & Plan (1) Multiple adenomatous polyps: Comment: 2019 scope=15 TA, 2021=3 TA repeat 1 yea r Code(s): D36.9 - Benign neoplasm, unspecified site Plan: I last saw this patient 05/18/2022. He is here for repeat colonoscopy as he has a hx of multiple polyposis. No new medical hx, he just had a normal stress test. He prefers the Miralax and bisacodyl prep. ROV after scope. (2) Pre-op examination: Code(s): Z01.818 - Encounter for other preprocedural examination Orders: Orders Colonoscopy - GI U se Only 03/13/23 Medications: New polyethylene glyco l 3350 (Miralax) 17 grams PO DAILY 1,020 grams 0RF 30 days D36.9 - Benign bret plasm, unspecified site bisacodyl (Dulcola x (bisacodyl)) 10 mg (2 x 5 mg) P O BEDTIME 4 tabs 0 RF 2 days COLONOSCOPY 07/08/23 Findings: Terminal Ileum: Not evaluated Cecum: Normal Ascending Colon: A 4-5 mm sessile polyp - removed with a cold bx. A 10 mm sessile polyp - removed with a hot snare. A 2.5 cms erythematous fold at 85 cms - biopsied. Transverse Colon: Two 4-5 mm sessile polyp removed with a cold bx Ten 10- 18 mm sessile polyps - removed with a hot snare Descending Colon: Moderate diverticulosis Sigmoid Colon: Five 10-15 mm sessile polyps - removed with a hot snare. One polypectomy site was closed with one hemoclip. Moderate diverticulosis Rectum: Normal Ano-rectum: Moderate internal hemorrhoids Impression and Post Procedure Diagnosis: Colonoscopy Findings: Nineteen small to medium sized polyps removed Moderate diverticulosis seen in the left colon Moderate hemorrhoids on retroflexed exam. Plan: Await pathology results Patient has an appointment on 07/23/23 in the GI Clinic with Payton Dominguez NP. Repeat Colonoscopy interval based on path results - in 1 year if polyps are adenomatous and due to a history of multiple colon polyps Pt has had 4 colonoscopies over a four year interval and continues to have multiple colon polyps - surgical evaluation for a sub total colectomy needs to be considered. BIOPSY Received: 07/08/23 Diagnosis A. Colon, ascending, polyp: Tubular adenoma; negative for high-grade dysplasia and carcinoma. B. Colon, transverse, polyp: Tubular adenoma; negative for high-grade dysplasia and carcinoma. C. Colon, ascending, fold at 85 cm, biopsy: Polypoid colonic mucosa with irregular thick walled vessels in the lamina propria, suggesting angiodysplasia. D. Colon, sigmoid, polyps: Tubular adenomas, multiple; negative for high-grade dysplasia and carcinoma TODAY'S VISIT He is agreeable to a 1 year repeat. The procedure was well tolerated. The results were explained and the patient is agreeable to the follow-up interval as stated. The bowel pattern has returned to normal. Education was provided to tell any 1st degree relatives about their findings to be sure that they are screened by age 45. Educated that they will be put on a recall list when it is time for their repeat scope but should they move out of state or away from the hospital they will need to remember along with their primary to repeat the procedure in a timely fashion to avoid any adverse complications. I am going to see if he can booked directly for this procedure and I will send more of the MiraLax/bisacodyl prep that he likes. I will see him again after his next procedure in a little over a year. [facility] Medical History (Updated 07/23/23 @ 16:50 by MEGAN Contreras) Pre-op examination Elevated cholesterol Diabetes HTN (hypertension) Surgical History (Updated 07/23/23 @ 15:04 by ALEXANDER Johnson) Hx of colonoscopy History of cataract extraction History of eye surgery History of removal of cyst Family History Father Diabetes Hypertension Mother Hypertension Diabetes Social History Housing: Apartment Are you a primary patient care associate to a significant other at home: No Do you presently have visiting nurse or other home services: No Alcohol intake: never Patient Tobacco Use Status: Never used Tobacco e-Cigarette/Vaping Use: Never Used Second Hand Smoke Exposure: No service: Yes Current occupational status: employed and retired () Current occupation: [employer] Cognitive needs: No Hearing needs: No Vision needs: Yes Review of Systems Const Denies fatigue, Denies fever(s), Denies night sweats, Denies poor appetite and Denies weight loss Eyes Details: glasses Reports requires corrective lenses ENT Reports Normal hearing present, Denies dental pain, Denies dysphagia, Denies hearing loss, Denies mouth pain, Denies odynophagia, Denies throat swelling, Denies tongue swelling and Reports other (Dentition adequate) Card Reports no additional complaints Resp Reports no additional complaints GI Denies abdominal pain, Denies melena, Denies bloating, Denies hematochezia, Denies constipation, Denies GI cramping, Denies dysphagia, Denies excessive flatus, Denies early satiety, Denies heartburn, Denies diarrhea, Denies nausea, Denies odynophagia, Denies vomiting and Denies hematemesis Skin/Breast Denies pruritus, Denies lesions, Denies rash and Denies jaundice Neuro Reports Normal hearing present and Denies Abnormal speech present Endo Denies fatigue Aller/Immun Denies throat swelling and Denies tongue swelling Physical Exam Vital Signs: Last Vital Signs Pulse 71 07/23/23 14:59 BP 152/68 H 07/23/23 14:59 BMI result Body Mass Index 30.2 Const General: cooperative, no acute distress, well developed and well groomed Nutritional Appearance: well nourished and obese Orientation/consciousness: oriented to person, oriented to place and oriented to time Limitations: No language barrier HEENT Head: Yes normocephalic and Yes atraumatic Eyes General: appearance normal, both eyes and all related structures Pupils: Equal, round and reactive pupils present Neck Neck: Yes normal visual inspection and Yes no lymphadenopathy Thyroid: Thyroid normal Resp Effort & Inspection: normal respiratory effort and able to speak in complete sentences Auscultation: clear to auscultation bilaterally Cardio Rate: regular rate Rhythm: regular rhythm Heart sounds: Normal, physiologic split S2 sound present Peripheral pulses: radial pulses present and posterior tibial pulses present GI Inspection: No distended, No Abdominal panniculus present and Yes obesity Palpation (GI): Soft to palpation, nontender, no guarding, not rigid and No hepatosplenomegaly present Percussion: Yes normal to percussion Auscultation: normal bowel sounds Rectal Exam - Male: Yes deferred Skin General skin exam: no rashes or lesions noted, turgor normal, skin not dry, no jaundice, No spider nevi and no striae Rashes: no rashes Nails: normal Neuro General: oriented to person, oriented to place and oriented to time Cranial nerves: Yes Equal, round and reactive pupils present and Yes Normal hearing present Speech: No Abnormal speech present Extrem General: Yes normal to inspection, No clubbing, No cyanosis and No edema Psych Appearance: grossly normal and well kempt Mental Status: mental status grossly normal Speech and movement: Normal speech and movement present Affect: normal affect Attitude: cooperative Thought process: Normal thought process present and not confabulating Thought content: Normal thought content present Insight: Good insight present (Psych) Judgement: Good judgement present (Psych) Results Reviewed Results Reviewed: COLONOSCOPY 07/08/23 Findings: Terminal Ileum: Not evaluated Cecum: Normal Ascending Colon: A 4-5 mm sessile polyp - removed with a cold bx. A 10 mm sessile polyp - removed with a hot snare. A 2.5 cms erythematous fold at 85 cms - biopsied. Transverse Colon: Two 4-5 mm sessile polyp removed with a cold bx Ten 10- 18 mm sessile polyps - removed with a hot snare Descending Colon: Moderate diverticulosis Sigmoid Colon: Five 10-15 mm sessile polyps - removed with a hot snare. One polypectomy site was closed with one hemoclip. Moderate diverticulosis Rectum: Normal Ano-rectum: Moderate internal hemorrhoids Impression and Post Procedure Diagnosis: Colonoscopy Findings: Nineteen small to medium sized polyps removed Moderate diverticulosis seen in the left colon Moderate hemorrhoids on retroflexed exam. Plan: Await pathology results Patient has an appointment on 07/23/23 in the GI Clinic with Payton Dominguez NP. Repeat Colonoscopy interval based on path results - in 1 year if polyps are adenomatous and due to a history of multiple colon polyps Pt has had 4 colonoscopies over a four year interval and continues to have multiple colon polyps - surgical evaluation for a sub total colectomy needs to be considered. BIOPSY Received: 07/08/23 Diagnosis A. Colon, ascending, polyp: Tubular adenoma; negative for high-grade dysplasia and carcinoma. B. Colon, transverse, polyp: Tubular adenoma; negative for high-grade dysplasia and carcinoma. C. Colon, ascending, fold at 85 cm, biopsy: Polypoid colonic mucosa with irregular thick walled vessels in the lamina propria, suggesting angiodysplasia. D. Colon, sigmoid, polyps: Tubular adenomas, multiple; negative for high-grade dysplasia and carcinoma Assessment & Plan Assessment & Plan (1) Nonfamilial multiple polyposis syndrome: Code(s): D12.6 - Benign neoplasm of colon, unspecified (2) Tubular adenoma of colon: Comment: 07/2023 SCOPE= 3 TA IS REPEAT IN 1 YEAR DUE TO A HISTORY OF MULTIPLE POLYPOSIS Code(s): D12.6 - Benign neoplasm of colon, unspecified Plan He is agreeable to a 1 year repeat. The procedure was well tolerated. The results were explained and the patient is agreeable to the follow-up interval as stated. The bowel pattern has returned to normal. Education was provided to tell any 1st degree relatives about their findings to be sure that they are screened by age 45. Educated that they will be put on a recall list when it is time for their repeat scope but should they move out of state or away from the hospital they will need to remember along with their primary to repeat the procedure in a timely fashion to avoid any adverse complications. I am going to see if he can booked directly for this procedure and I will send more of the MiraLax/bisacodyl prep that he likes. I will see him again after his next procedure in a little over a year Medications: New bisacodyl (Dulcolax (bisacodyl)) 10 mg (2 x 5 mg) PO BEDTIME 2 days 4 tabs 0RF Refilled polyethylene glycol 3350 (Miralax) 17 grams PO DAILY 30 days 1,020 grams 0RF D36.9 - Benign neoplasm, unspecified site Coding Level of Care Code Est Pt Level 3 (18522) Diagnoses Nonfamilial multiple polyposis syndrome D12.6 Tubular adenoma of colon D12.6
== END 2023-07-23 15:24 | disposition home or self-care (01) ==
PROVIDERS: PCP Physician Assistant; Visit Provider Nurse Practitioner
DX: D12.6 Benign neoplasm of colon, unspecified (principal)
CPT/HCPCS: 99213

== ENCOUNTER → 2023-07-23 14:56 | Outpatient (BNVA) | payer OTHER, SELFPAY | PROVIDERS: PCP Physician Assistant; Visit Provider Nurse Practitioner | DX: K57.30 Diverticulosis of large intestine without perforation or abscess without bleeding (principal); D12.2 Benign neoplasm of ascending colon; D12.3 Benign neoplasm of transverse colon; D12.5 Benign neoplasm of sigmoid colon; K64.8 Other hemorrhoids | CPT/HCPCS: 99212 ==

== ENCOUNTER 2023-10-21 06:00 | Outpatient (REF) | payer OTHER, SELFPAY ==
[2023-10-21 06:26] LABS: Ammonia 36 umol/L (13-55)
[2023-10-21 07:59] LABS: Hemoglobin 13.1 g/dl (14.0-18.0); Mean Corpuscular HGB Conc 33.6 g/dl (31.0-36.0); Mean Corpuscular Hemoglobin 30.4 pg (27.0-33.0); Mean Corpuscular Volume 90.5 fL (80.0-98.0); Mean Platelet Volume 11.8 fL (9.4-12.4); Platelet Count 193 X10*3/uL (160-400); Red Blood Count 4.31 X10*6/uL (4.60-5.80); Red Cell Distribution Width 13.6 % (11.0-16.0)
[2023-10-21 08:38] LABS: Alanine Aminotransferase 76 U/L (0-40); Albumin Level 3.4 g/dL (3.5-5.0); Alkaline Phosphatase 178 U/L (39-117); Anion Gap 10 (12-20); Aspartate Amino Transferase 83 U/L (5-37); Bilirubin Direct 0.5 mg/dL (0.0-0.5); Bilirubin Total 0.8 mg/dL (0.0-1.0); Blood Urea Nitrogen 17 mg/dL (9-16); Calcium 9.5 mg/dL (8.4-10.2); Carbon Dioxide 27 mmol/L (22-29); Chloride 108 mmol/L (96-108); Cholesterol 140 mg/dL (<200); Estimated Glomerular Filt Rate > 60; Glucose Fasting 133 mg/dL (60-99); HDL Cholesterol 57 mg/dL (>40); LDL Cholesterol Calculated 65 mg/dL (<100); Potassium 4.1 mmol/L (3.3-5.1); Sodium 141 mmol/L (135-145); Total Protein 7.6 g/dL (6.5-8.0); Triglycerides 93 mg/dL (<150)
[2023-10-21 08:50] LABS: Creatinine Urine 163.45 mg/dL; Microalbum/Creatinine Ratio Ur 3.6 ug/mg cr (<30)
== END 2023-10-21 06:01 | disposition home or self-care (01) ==
LOC: HO.LAB 06:00
PROVIDERS: PCP Physician Assistant; Visit Provider Physician Assistant
DX: E78.2 Mixed hyperlipidemia (principal); R74.8 Abnormal levels of other serum enzymes; I10 Essential (primary) hypertension
CPT/HCPCS: 36415; 80053; 80061; 80076; 82043; 82140; 82248; 82570; 85027

== ENCOUNTER 2023-10-28 15:21 | Outpatient (AMB) | payer OTHER, SELFPAY ==
[2023-10-28 15:31] VITALS: BP 142/66; PULSE 75; O2SAT 98; BMI 29.7
--- NOTE | 2023-10-28 15:31 | MHC.PC.OV ---
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 Accompanied by: Self / Same As Patient Allergies dulaglutide [From Trulicity] Adverse Reaction (Intermediate, Verified 10/28/23 15:49) GI upset Medication List - Last Reconciled 10/28/23 by Khadar Arciniega PA-C blood sugar diagnostic (FreeStyle Lite Strips) As directed blood-glucose meter (FreeStyle Gilman Lite kit) As directed blood-glucose meter (FreeStyle Gilman Lite kit) As directed insulin glargine (Lantus Solostar U-100 Insulin) 24 units (0.24 mL) subcut QPM 30 days lancets (FreeStyle Lancets) As directed lisinopril-hydrochlorothiazide 20-25 mg 1 tab PO DAILY pen needle, diabetic (BD Ultra-Fine Anaya Pen Needle) As directed sildenafil (Viagra) 100 mg PO DAILY 90 days simvastatin 10 mg PO DAILY sitagliptin phos-metformin 50-1,000 mg (Janumet) 1 tab PO BID 90 days Tobacco use date assessed: 10/28/23 Dental Screening Dental Screen Date: 10/28/23 Did you have a dental visit in the last 12 months?: No Did you have a dental problem in the last 6 months where you did not have access to dental care?: No Was dental information given to patient?: Yes HPI f/u DMII- liver enzymes HPI Details Patient is a 58-year-old male here today for follow-up visit. ?Patient has a past medical history significant for HTN, type 2 diabetes, liver disease. .. Type 2 diabetes:? Patient continues on long-acting insulin at 20 units. A1c is now much improved to 5.8 Of note was not able to tolerate Trulicity due to GI side effects. ? .. Elevated liver enzymes: Liver enzymes have improved though still slightly elevated.. Did have ultrasound of his liver in 2021 showing--> Echogenic heterogeneous liver echotexture questionable for hepatocellular disease. .. Hypertension:? Has not been regularly checking his blood pressure at home and reports 130s systolic. Today's blood pressure elevated in office. He continues on lisinopril hydrochlorothiazide. Cara's a element of white coat patient denies any chest pain, shortness of breath, headaches. Borderline high cholesterol:? Most recent lipid panel showing good control over total cholesterol and LDL. Patient will continue on statin therapy . Laboratory Tests 05/25/23 10/21/23 10/21/23 07:54 06:11 06:14 Hgb 13.1 L Fasting Glucose 204 H 133 H Hgb A1c (Clinic) AST 103 H 83 H ALT 107 H 76 H Cholesterol 140 LDL Cholesterol, C alc 65 Urine Microalbumin 6.0 10/28/23 15:25 Hgb Fasting Glucose Hgb A1c (Clinic) 5.8 AST ALT Cholesterol LDL Cholesterol, C alc Urine Microalbumin [facility] Medical History (Updated 10/29/23 @ 09:17 by Khadar Arciniega PA-C) Erectile dysfunction Cataract Pre-op examination Elevated cholesterol Diabetes HTN (hypertension) Surgical History Hx of colonoscopy History of cataract extraction History of eye surgery History of removal of cyst Family History Father Diabetes Hypertension Mother Hypertension Diabetes Social History Housing: Apartment Are you a primary home health care social worker to a significant other at home: No Do you presently have visiting nurse or other home services: No Alcohol intake: never Patient Tobacco Use Status: Never used Tobacco e-Cigarette/Vaping Use: Never Used Second Hand Smoke Exposure: No service: Yes Current occupational status: employed and retired () Current occupation: [employer] Cognitive needs: No Hearing needs: No Vision needs: Yes Questionnaire PHQ-9 Over the last 2 weeks, how often have you been bothered by any of the following problems? 1. Little interest or pleasure in doing things: not at all 2. Feeling down, depressed, or hopeless: not at all 3. Trouble falling or staying asleep, or sleeping too much: not at all 4. Feeling tired or having little energy: not at all 5. Poor appetite or overeating: not at all 6. Feeling bad about yourself - or that you are a failure or have let yourself or your family down: not at all 7. Trouble concentrating on things, such as reading the newspaper or watching television: not at all 8. Moving or speaking so slowly that other people could have noticed. Or the opposite - being so fidgety or restless that you have been moving around a lot more than usual: not at all 9. Thoughts that you would be better off or of hurting yourself in some way: not at all Total score: 0 Depression Screening Interpretation: Negative Depression Screening Done: Yes [id number] - PHQ-9 Billing: Yes Source: Developed by Drs. Yony Rosales, Anuja Vega, Chad Juarez and colleagues, with an educational nathanael from [employer]. Thrive Questionnaire Date Thrive assessed: 10/28/23 I am a: Patient What is your living situation today?: I have a steady place to live Within the past 12 months, did the food you bought not last and you didn't have the money to get more?: Never true Within the past 12 months, did you worry whether your food would run out before you got money to buy more?: Never true Do you have trouble paying for medicines?: No Do you have trouble getting transportation to medical appointments?: No Do you have trouble paying your heating and electricity bill?: No Do you have trouble taking care of your child, family member or friend?: No Do you have trouble with day-to-day activities such as bathing, preparing meals, shopping, managing finances, etc.?: No Are you currently unemployed and looking for a job?: No Are you interested in more education?: No Please select the resources that you would like help with: None Currently or been in a relationship where the following occur: no concerns reported THRIVE Score: 0 AUDIT C Alcohol Use Questionnaire (AUDIT-C) 1. How often do you have a drink containing alcohol?: Never 3. How often do you have six or more drinks on one occasion?: Never Total Score: 0 RADHA-7 AMB Questionnaire RADHA-7 Date RADHA - 7 assessed: 10/28/23 Feeling nervous, anxious, or on edge: 0 = Not at all Not being able to stop or control worryin = Not at all Worrying too much about different things: 0 = Not at all Trouble relaxin = Not at all Being so restless that it is hard to sit still: 0 = Not at all Becoming easily annoyed or irritable: 0 = Not at all Feeling afraid as if something awful might happen: 0 = Not at all Total RADHA-7 score (0-4 normal; 5-9 mild; 10-14 moderate; 15-21 severe): 0 Source: Developed by Drs. Yony Rosales, Anuja Vega, Chad Juarez and colleagues, with an educational nathanael from [employer]. RADHA-7 Assessment Billing RADHA-7 Assessment Tool: RADHA-7 Assessment 13771 Review of Systems Const Denies headache(s) Eyes Denies loss of vision ENT Denies vertigo, Denies dizziness, Denies headache(s) and Denies sore throat Card Denies chest pain, Denies leg edema and Denies lightheadedness Resp Denies cough, Denies hemoptysis and Denies wheezing GI Denies abdominal pain, Denies melena, Denies constipation, Denies diarrhea and Denies vomiting Denies dysuria, Denies urinary frequency and Denies urinary urgency Musc Denies arthralgias, Denies joint swelling, Denies numbness and Denies tingling Neuro Denies Abnormal speech present, Denies behavioral changes, Denies vertigo, Denies dizziness, Denies headache(s), Denies loss of vision, Denies memory loss, Denies numbness and Denies tingling Psych Denies anxiety, Denies behavioral changes, Denies depression, Denies memory loss and Denies panic attacks James/Lymph Denies easy bleeding and Denies easy bruising Aller/Immun Denies wheezing Physical exam (Primary Care) Vital Signs: Last Vital Signs Pulse 75 10/28/23 15:31 BP 142/66 H 10/28/23 15:31 Pulse Ox 98 10/28/23 15:31 Oxygen Delivery Method Room Air 10/28/23 15:31 BMI result Body Mass Index 29.7 Tobacco/Smoking Status: Tobacco use Status Tobacco use date assessed 10/28/23 10/28/23 15:46 Patient Tobacco Use Status Never used Tobacco 10/28/23 15:32 e-Cigarette/Vaping Use Never Used 10/28/23 15:32 PHQ-9: PHQ-9 Score PHQ-9: Total score 0 10/29/23 08:12 Depression Screening Interpretation: Negative Thrive Assessment: Date of Thrive Assessment Date Thrive assessed 10/28/23 10/28/23 15:46 Currently or been in a relationship where the following occur: no concerns reported Const General: healthy appearing, no acute distress, alert and awake Nutritional Appearance: well nourished Orientation/consciousness: oriented to person, oriented to place and oriented to time HENMT Ears: TM's normal bilaterally General nose exam: Normal nasal mucous membranes and turbinates present Eyes Conjunctivae: conjunctivae normal Sclerae: sclerae normal Pupils: Equal, round and reactive pupils present Neck Neck: Yes no lymphadenopathy and Yes no JVD Thyroid: Thyroid normal Carotids: no bruits Resp Effort & Inspection: normal respiratory effort and not tachypneic Auscultation: no crackles, no rales, no rhonchi and no wheezes Cardio Rate: regular rate Rhythm: regular rhythm Heart sounds: no murmurs and normal S1 and S2 GI Palpation (GI): Soft to palpation, nontender, no hepatomegaly and no splenomegaly Auscultation: normal bowel sounds Skin General skin exam: no rashes or lesions noted and dry skin Neuro General: oriented to person, oriented to place and oriented to time Cranial nerves: Yes Equal, round and reactive pupils present Speech: No Abnormal speech present Gait exam (Neuro): Normal gait present Motor exam (neuro): no tremor noted Extrem Right upper extremity: full ROM Left upper extremity: full ROM Right lower extremity: full ROM; no edema Left lower extremity: full ROM; no edema Psych Mental Status: mental status grossly normal Speech and movement: Normal speech and movement present Affect: normal affect Attitude: cooperative Thought process: Normal thought process present Results AMB Hemoglobin A1c AMB Hemoglobin A1c 5.8 % Last Edit by ALEXANDER Ordaz on 10/28/23 15:46 Results Reviewed Results Reviewed: Laboratory Last Values Hgb A1c (Clinic) 5.8 % (4.0-6.0) 10/28/23 15:25 Assessment and Plan Assessment & Plan (1) HTN (hypertension): Code(s): I10 - Essential (primary) hypertension Qualifiers: Hypertension type: essential hypertension Qualified Code(s): I10 - Essential (primary) hypertension Plan: Patient's blood pressure slightly elevated today in office. On recheck blood pressure improved. He reports that home checking his blood pressure from time to time and reports normal readings 120s to 140s folic. Will consider adding amlodipine to his blood pressure med regime. Goal blood pressure to be below 140/90 (2) DMII (diabetes mellitus, type 2): Code(s): E11.9 - Type 2 diabetes mellitus without complications Qualifiers: Diabetes mellitus complication status: without complication Diabetes mellitus equipment operator intermodal yard insulin use: without equipment operator intermodal yard use Qualified Code(s): E11.9 - Type 2 diabetes mellitus without complications Plan: Type 2 diabetes well controlled. Today's A1c at 5.8. He continues on Lantus 26 units and Janumet. Will continue current regime with goal A1c to be below 7.0 (3) HLD (hyperlipidemia): Code(s): E78.5 - Hyperlipidemia, unspecified Qualifiers: Hyperlipidemia type: mixed hyperlipidemia Qualified Code(s): E78.2 - Mixed hyperlipidemia Plan: Patient's lipid panel acceptable with goal LDL below 100. For now will hold his statin therapies see if this is the reason for his elevated liver enzymes Orders: Orders AMB Hemoglobin A1c 10/28/23 E11.9 - Type 2 diabetes mellitus without complications Testosterone, Free/Total 10/28/23 R53.83 - Other fatigue Lipid Panel 6 Months E78.2 - Mixed hyperlipidemia Comprehensive [place]. Panel Fast 6 Months E11.9 - Type 2 diabetes mellitus without complications Complete Blood Count no Diff 6 Months E11.9 - Type 2 diabetes mellitus without complications Prostate Specific Antigen Scr 6 Months R53.83 - Other fatigue, Z12.5 - Encounter for screening for malignant neoplasm of prostate Medications: Changed From lisinopril-hydrochlorothiazide 20-25 mg 1 tab PO DAILY 30 tabs 1RF I10 - Essential (primary) hypertension To lisinopril-hydrochlorothiazide 20-25 mg 1 tab PO DAILY 90 days 90 tabs 2RF I10 - Essential (primary) hypertension Patient Instructions: Goals: A1c to remain below 7.0 Barriers: Adherence to diabetic diet and physical activity. Coding Level of Care Code Est Pt Level 4 (95108) Diagnoses Essential hypertension I10 Hypertension type: essential hypertension Type 2 diabetes mellitus without complication, without long-term current use of insulin E11.9 Diabetes mellitus complication status: without complication Diabetes mellitus chcf insulin use: without chcf use Mixed hyperlipidemia E78.2 Hyperlipidemia type: mixed hyperlipidemia Additional Codes RADHA-7 Assessment Billing - RADHA-7 Assessment Tool: RADHA-7 Assessment 80038 ([id number])
== END 2023-10-28 16:02 | disposition home or self-care (01) ==
PROVIDERS: PCP Physician Assistant; Visit Provider Physician Assistant
DX: E11.9 Type 2 diabetes mellitus without complications (principal)
CPT/HCPCS: 83036; 99214

== ENCOUNTER 2023-11-23 09:27 | Outpatient (REF) | payer OTHER, SELFPAY ==
[2023-11-29 16:53] LABS: Testosterone, Free 75.7 pg/mL (35.0-155.0); Testosterone, Total 1261 ng/dL (250-1100)
== END 2023-11-23 09:28 | disposition home or self-care (01) ==
LOC: HO.LAB 09:27
PROVIDERS: PCP Physician Assistant; Visit Provider Physician Assistant
DX: R53.83 Other fatigue (principal)
CPT/HCPCS: 36415; 84402; 84403

== ENCOUNTER 2024-01-21 13:35 | Outpatient (REF) | payer OTHER, SELFPAY ==
--- NOTE | ~2024-01-21 | US_ITS ---
EXAMINATION: US SCROTUM CLINICAL INFORMATION: Other specified abnormal findings of blood chemistry. Ultrasound to evaluate testes due to high serum testosterone without use of exogenous testosterone therapy. COMPARISON: None available. TECHNIQUE: A sonogram of the scrotum was performed assessing moy-scale appearance and color Doppler flow. Spectral Doppler analysis of the arterial and venous flow were performed in the testes bilaterally. FINDINGS: RIGHT: Right testicle measures 4.1 x 1.9 x 2.5 cm, volume 10.6 mL. Peripheral 0.2 calcification. Otherwise no parenchymal lesions. Spectral Doppler analysis of the arterial and venous flow is increased in the right testis. Right epididymal head is normal in size. 0.3 cm right epididymal head cyst No right hydrocele or varicocele is seen. Right epididymal Doppler flow is normal. LEFT: Left testicle measures 3.9 x 1.9 x 2.8 cm, volume 10.7 mL. No focal testicular parenchymal lesions are visualized. Spectral Doppler analysis of the arterial and venous flow is normal in the left testis. Left epididymal head is normal in size. There is a 0.6 cm left epididymal body cyst No left hydrocele or varicocele is seen. Left epididymal Doppler flow is normal. US/US scrotum IMPRESSION: 1. Increased vascularity of the right testis. 2. Bilateral epididymal cysts.
== END 2024-01-21 13:36 | disposition home or self-care (01) ==
LOC: HO.US 13:35
PROVIDERS: PCP Physician Assistant; Visit Provider Physician Assistant
DX: R79.89 Other specified abnormal findings of blood chemistry (principal)
CPT/HCPCS: 76870

== ENCOUNTER 2024-01-28 15:21 | Outpatient (AMB) | payer OTHER, SELFPAY ==
[2024-01-28 15:45] VITALS: BP 154/72; PULSE 75; O2SAT 98
--- NOTE | 2024-01-28 15:45 | HO.NEPHOV_ITS ---
Vital Signs 01/28/24 15:45 Height 5 ft 7 in Weight 191 lb 4 oz BMI 30.0 BP 154/72 H Blood Pressure Location Lt brachial Position Sitting Pulse 75 Pulse Source Pulse Oximeter Pulse Oximetry (%) 98 Oxygen Delivery Method Room Air Intake Visit Reasons: Per to book/ LVM Occupational Health And Safety Adviser Required: No Accompanied by: Self / Same As Patient Allergies dulaglutide [From Trulicity] Adverse Reaction (Intermediate, Verified 01/28/24 15:47) GI upset HPI Comments Details: I had the pleasure of seeing Sree who is a 58-year-old male in consultation for labile blood pressure. He is a diabetic but denies retinopathy or proteinuria. He has hypertension for a long time and he randomly checks his BP at home. He is known to have liver disease. His A1c is now much improved to 5.8. He continues on lisinopril hydrochlorothiazide. Patient denies any chest pain, shortness of breath, headaches, visual disturbances, shortness of breath, PND, orthopnea, pedal edema, hematuria, excess NSAID use. He denies excess sodium intake. He did not have any systemic complaints at the time of this visit [facility] Medical History (Updated 12/09/23 @ 16:52 by Khadar Arciniega PA-C) Erectile dysfunction Cataract Pre-op examination Elevated cholesterol Diabetes HTN (hypertension) Surgical History Hx of colonoscopy History of cataract extraction History of eye surgery History of removal of cyst Family History Father Diabetes Hypertension Mother Hypertension Diabetes Social History Housing: Apartment Are you a primary morning caregiver to a significant other at home: No Do you presently have visiting nurse or other home services: No Alcohol intake: never Patient Tobacco Use Status: Never used Tobacco e-Cigarette/Vaping Use: Never Used Second Hand Smoke Exposure: No service: Yes Current occupational status: employed and retired Current occupation: [employer] Cognitive needs: No Hearing needs: No Vision needs: Yes Review of Systems Const All systems reviewed & are unremarkable except as noted in HPI and below Physical Exam Vital Signs: Last Vital Signs Pulse 75 01/28/24 15:45 BP 154/72 H 01/28/24 15:45 Pulse Ox 98 01/28/24 15:45 Oxygen Delivery Method Room Air 01/28/24 15:45 BMI result Body Mass Index 30.0 Const General: comfortable and no acute distress Orientation/consciousness: patient oriented x3 HEENT Head: Yes normocephalic Mouth: Normal oral and palatal mucosa present Eyes EOM: EOMs intact bilaterally Neck Neck: Yes supple Resp Auscultation: clear to auscultation bilaterally Cardio Jugular venous distension: no JVD Rate: regular rate GI Palpation (GI): Soft to palpation Auscultation: normal bowel sounds General: Yes no CVA tenderness Back/Spine/Pelvis Back: no CVA tenderness Skin General skin exam: no rashes or lesions noted Neuro General: patient oriented x3 and moves all extremities Extrem General: Yes no pedal edema Results Reviewed Nephrology Results: Hgb 13.1 g/dl (14.0-18.0) L 10/21/23 WBC 8.0 X10*3/uL (4.8-10.8) 10/21/23 Plt Count 193 X10*3/uL (160-400) 10/21/23 Sodium 141 mmol/L (135-145) 10/21/23 Potassium 4.1 mmol/L (3.3-5.1) 10/21/23 Chloride 108 mmol/L (96-108) 10/21/23 Carbon Dioxide 27 mmol/L (22-29) 10/21/23 BUN 17 mg/dL (9-16) H 10/21/23 Creatinine 0.98 mg/dL (0.5-1.4) 10/21/23 Calcium 9.5 mg/dL (8.4-10.2) 10/21/23 Urine Creatinine 163.45 mg/dL 10/21/23 Assessment & Plan Assessment & Plan (1) HTN (hypertension): Code(s): I10 - Essential (primary) hypertension Category: Medical Qualifiers: Hypertension type: essential hypertension Qualified Code(s): I10 - Essential (primary) hypertension Plan: Sree has longstanding hypertension. He has no retinopathy, LVH, proteinuria or renal dysfunction. His BP is labile. He has no H/O CAD, JEFFRY, PAD, CVA or CHF. He randomly checks blood pressure at home. He denies taking excess sodium in the diet. His volume status is optimal. He is on lisinopril/ HCTZ. I have ordered 24 hour BPM. I shall optimize medications based on evolving data. More than 50 % time spent discussing etiologies, investigations , management of hypertension. Answered all questions. F/U given Orders: Orders AMB 24 HR B/P Monitor PLACEMENT Today I10 - Essential (primary) hypertension Coding Level of Care Code New Pt Level 4 (94838) Diagnoses Essential hypertension I10 Hypertension type: essential hypertension
== END 2024-01-28 16:16 | disposition home or self-care (01) ==
PROVIDERS: PCP Physician Assistant; Visit Provider Internal Medicine Nephrology
DX: I10 Essential (primary) hypertension (principal)
CPT/HCPCS: 99204

== ENCOUNTER → 2024-01-28 15:21 | Outpatient (BNVA) | payer OTHER, SELFPAY | PROVIDERS: PCP Physician Assistant; Visit Provider Internal Medicine Nephrology | DX: I10 Essential (primary) hypertension (principal) | CPT/HCPCS: 99202 ==

== ENCOUNTER 2024-02-06 15:25 | Outpatient (AMB) | payer OTHER, SELFPAY ==
[2024-02-06 15:28] VITALS: BP 152/64; PULSE 73; BMI 29.8
--- NOTE | 2024-02-06 15:28 | A.OFFVIS_ITS ---
Vital Signs 02/06/24 15:28 Height 5 ft 7 in Weight 190 lb 0.615 oz BMI 29.8 BP 152/64 H Blood Pressure Location Lt brachial Position Sitting Pulse 73 Pulse Source Pulse Oximeter Intake Visit Reasons: Elevated testosterone Intake Note: New patient present today for elevated testosterone office visit. Yarn Sizer Required: No Accompanied by: Self / Same As Patient [facility] Adverse Reaction (Intermediate, Verified 02/06/24 15:35) GI upset Medication List - Last Reconciled 02/06/24 by Yony Ho MD blood sugar diagnostic (FreeStyle Lite Strips) As directed blood-glucose meter (FreeStyle Rosebud Lite kit) As directed blood-glucose meter (FreeStyle Rosebud Lite kit) As directed insulin glargine (Lantus Solostar U-100 Insulin) 24 units (0.24 mL) subcut QPM 30 days lancets (FreeStyle Lancets) As directed lisinopril-hydrochlorothiazide 20-25 mg 1 tab PO DAILY 90 days pen needle, diabetic (BD Ultra-Fine Anaya Pen Needle) As directed sildenafil (Viagra) 100 mg PO DAILY 90 days simvastatin 10 mg PO DAILY sitagliptin phos-metformin 50-1,000 mg (Janumet) 1 tab PO BID 90 days HPI Comments Details: This is a 58-year-old male sent to endocrinology for evaluation of elevated total testosterone level. Free testosterone was within normal range. Denies loss of libido for few yrs. C/O fatigue . Some problem maintaining errection. ED agents didn't help. Has Ype 2 DM. No headaches or loss of vision. No nipple discharge. [facility] Medical History (Updated 12/09/23 @ 16:52 by Khadar Arciniega PA-C) Erectile dysfunction Cataract Pre-op examination Elevated cholesterol Diabetes HTN (hypertension) Surgical History Hx of colonoscopy History of cataract extraction History of eye surgery History of removal of cyst Family History Father Diabetes Hypertension Mother Hypertension Diabetes Social History Housing: Apartment Are you a primary healthcare receptionist to a significant other at home: No Do you presently have visiting nurse or other home services: No Alcohol intake: never Patient Tobacco Use Status: Never used Tobacco e-Cigarette/Vaping Use: Never Used Second Hand Smoke Exposure: No service: Yes Current occupational status: employed and retired Current occupation: [employer] Cognitive needs: No Hearing needs: No Vision needs: Yes Physical Exam Vital Signs: Last Vital Signs Pulse 73 02/06/24 15:28 BP 152/64 H 02/06/24 15:28 BMI result Body Mass Index 29.8 Const Other: There is the absence of eunichoidal propotions.. Thyroid gland is normal size weighs about 15 g . There are no thyroid nodules palpated. Examination of the chest reveals the absence of gynecomastia. Examination of the genitalia reveals normal size and consistency of the testes Assessment & Plan Assessment & Plan (1) High serum testosterone: Code(s): R79.89 - Other specified abnormal findings of blood chemistry Category: Medical Plan: This is a 58-year-old male with a history of elevated total testosterone level most likely reflection of increase sex hormone binding globulin or SHBG which is a result of liver pathology. Free testosterone is within normal limits. No need for any further endocrine workup at this point. However, patient is going to see the director television the near future for further workup of liver abnormality. He should continue with the erectile dysfunction H and if needed Coding Level of Care Code New Pt Level 4 (51189) Diagnoses High serum testosterone R79.89
== END 2024-02-06 16:23 | disposition home or self-care (01) ==
PROVIDERS: PCP Physician Assistant; Visit Provider Internal Medicine Endocrinology, Diabetes & Metabolism
DX: R79.89 Other specified abnormal findings of blood chemistry (principal)
CPT/HCPCS: 99204

== ENCOUNTER → 2024-02-06 15:25 | Outpatient (BNVA) | payer OTHER, SELFPAY | PROVIDERS: PCP Physician Assistant; Visit Provider Internal Medicine Endocrinology, Diabetes & Metabolism | DX: R79.89 Other specified abnormal findings of blood chemistry (principal) | CPT/HCPCS: 99202 ==

== ENCOUNTER → 2024-02-26 14:05 | Outpatient (BNVA) | payer OTHER, SELFPAY | PROVIDERS: PCP Physician Assistant; Visit Provider Internal Medicine Nephrology ==

== ENCOUNTER → 2024-02-27 14:19 | Outpatient (BNVA) | payer OTHER, SELFPAY | PROVIDERS: PCP Physician Assistant; Visit Provider Internal Medicine Nephrology ==

== ENCOUNTER 2024-03-10 15:23 | Outpatient (AMB) | payer OTHER, SELFPAY ==
[2024-03-10 16:04] VITALS: BP 142/70; PULSE 70; O2SAT 97
--- NOTE | 2024-03-10 16:04 | HO.NEPHOV_ITS ---
Vital Signs 03/10/24 16:04 Height 5 ft 7 in Weight 191 lb 6 oz BMI 30.0 BP 142/70 H Blood Pressure Location Lt brachial Position Sitting Pulse 70 Pulse Source Pulse Oximeter Pulse Oximetry (%) 97 Oxygen Delivery Method Room Air Intake Visit Reasons: 1mon follow up- [facility] Plumbing And Heating Contractor Required: No Accompanied by: Self / Same As Patient Allergies dulaglutide [From Trulicity] Adverse Reaction (Intermediate, Verified 03/10/24 16:06) GI upset HPI Comments Details: I had the pleasure of seeing Sree who is a 58-year-old male in follow up for labile blood pressure. He is a diabetic but denies retinopathy or proteinuria. He has hypertension for a long time and he randomly checks his BP at home. He is known to have liver disease. His A1c is now much improved to 5.8. He continues on lisinopril hydrochlorothiazide. Patient denies any chest pain, shortness of breath, headaches, visual disturbances, shortness of breath, PND, orthopnea, pedal edema, hematuria, excess NSAID use. He denies excess sodium intake. He had 24 hour BPM which showed well controlled BP. He did not have any systemic complaints at the time of this visit [facility] Medical History (Updated 12/09/23 @ 16:52 by Khadar Arciniega PA-C) Erectile dysfunction Cataract Pre-op examination Elevated cholesterol Diabetes HTN (hypertension) Surgical History Hx of colonoscopy History of cataract extraction History of eye surgery History of removal of cyst Family History Father Diabetes Hypertension Mother Hypertension Diabetes Social History Housing: Apartment Are you a primary career developer to a significant other at home: No Do you presently have visiting nurse or other home services: No Alcohol intake: never Patient Tobacco Use Status: Never used Tobacco e-Cigarette/Vaping Use: Never Used Second Hand Smoke Exposure: No service: Yes Current occupational status: employed and retired Current occupation: [employer] Cognitive needs: No Hearing needs: No Vision needs: Yes Review of Systems Const All systems reviewed & are unremarkable except as noted in HPI and below Physical Exam Vital Signs: Last Vital Signs Pulse 70 03/10/24 16:04 BP 142/70 H 03/10/24 16:04 Pulse Ox 97 03/10/24 16:04 Oxygen Delivery Method Room Air 03/10/24 16:04 BMI result Body Mass Index 30.0 Const General: comfortable and no acute distress Orientation/consciousness: patient oriented x3 HEENT Head: Yes normocephalic Mouth: Normal oral and palatal mucosa present Eyes EOM: EOMs intact bilaterally Neck Neck: Yes supple Resp Auscultation: clear to auscultation bilaterally Cardio Jugular venous distension: no JVD Rate: regular rate GI Palpation (GI): Soft to palpation Auscultation: normal bowel sounds General: Yes no CVA tenderness Back/Spine/Pelvis Back: no CVA tenderness Skin General skin exam: no rashes or lesions noted Neuro General: patient oriented x3 and moves all extremities Extrem General: Yes no pedal edema Results Reviewed Nephrology Results: Hgb 13.1 g/dl (14.0-18.0) L 10/21/23 WBC 8.0 X10*3/uL (4.8-10.8) 10/21/23 Plt Count 193 X10*3/uL (160-400) 10/21/23 Sodium 141 mmol/L (135-145) 10/21/23 Potassium 4.1 mmol/L (3.3-5.1) 10/21/23 Chloride 108 mmol/L (96-108) 10/21/23 Carbon Dioxide 27 mmol/L (22-29) 10/21/23 BUN 17 mg/dL (9-16) H 10/21/23 Creatinine 0.98 mg/dL (0.5-1.4) 10/21/23 Calcium 9.5 mg/dL (8.4-10.2) 10/21/23 Urine Creatinine 163.45 mg/dL 10/21/23 Assessment & Plan Assessment & Plan (1) HTN (hypertension): Code(s): I10 - Essential (primary) hypertension Category: Medical Qualifiers: Hypertension type: essential hypertension Qualified Code(s): I10 - Essential (primary) hypertension Plan Sree has longstanding hypertension. He has no retinopathy, LVH, proteinuria or renal dysfunction. His BP was labile during office visits. He underwent 24 hour BPM which showed well controlled BP.. He has no H/O CAD, JEFFRY, PAD, CVA or CHF. He denies taking excess sodium in the diet. His volume status is optimal. He could continue on current dose of lisinopril/ HCTZ. I did not make any medication change today. Answered all questions. F/U given in a year Orders: Orders Electrolytes Today I10 - Essential (primary) hypertension Creatinine Today I10 - Essential (primary) hypertension Blood Urea Nitrogen Today I10 - Essential (primary) hypertension Protein Creatinine Ratio, Ur Today I10 - Essential (primary) hypertension Medications: Refilled lisinopril-hydrochlorothiazide 20-25 mg 1 tab PO DAILY 90 days 90 tabs 3RF I10 - Essential (primary) hypertension Coding Level of Care Code Est Pt Level 4 (53039) Diagnoses Essential hypertension I10 Hypertension type: essential hypertension
== END 2024-03-10 16:23 | disposition home or self-care (01) ==
PROVIDERS: PCP Physician Assistant; Visit Provider Internal Medicine Nephrology
DX: I10 Essential (primary) hypertension (principal)
CPT/HCPCS: 93790; 99214

== ENCOUNTER → 2024-03-10 15:23 | Outpatient (BNVA) | payer OTHER, SELFPAY | PROVIDERS: PCP Physician Assistant; Visit Provider Internal Medicine Nephrology | DX: I10 Essential (primary) hypertension (principal) | CPT/HCPCS: 99212 ==

== ENCOUNTER 2024-12-10 08:17 | Outpatient (REF) | payer OTHER, SELFPAY ==
[2024-12-10 09:01] LABS: Hemoglobin 11.5 g/dl (14.0-18.0); Mean Corpuscular HGB Conc 32.9 g/dl (31.0-36.0); Mean Corpuscular Hemoglobin 30.9 pg (27.0-33.0); Mean Corpuscular Volume 94.1 fL (80.0-98.0); Mean Platelet Volume 11.8 fL (9.4-12.4); Platelet Count 165 X10*3/uL (160-400); Red Blood Count 3.72 X10*6/uL (4.60-5.80); Red Cell Distribution Width 13.6 % (11.0-16.0); White Blood Count 7.5 X10*3/uL (4.8-10.8)
[2024-12-10 09:26] LABS: Alanine Aminotransferase 85 U/L (0-40); Albumin Level 3.3 g/dL (3.5-5.0); Alkaline Phosphatase 196 U/L (39-117); Anion Gap 6 (12-20); Aspartate Amino Transferase 107 U/L (5-37); Bilirubin Total 1.2 mg/dL (0.0-1.0); Blood Urea Nitrogen 24 mg/dL (9-16); Calcium 9.1 mg/dL (8.4-10.2); Carbon Dioxide 28 mmol/L (22-29); Chloride 109 mmol/L (96-108); Cholesterol 135 mg/dL (<200); Estimated Glomerular Filt Rate > 60; Glucose Fasting 134 mg/dL (60-99); HDL Cholesterol 60 mg/dL (>40); LDL Cholesterol Calculated 60 mg/dL (<100); Potassium 4.3 mmol/L (3.3-5.1); Sodium 139 mmol/L (135-145); Total Protein 7.4 g/dL (6.5-8.0); Triglycerides 79 mg/dL (<150)
[2024-12-10 09:46] LABS: Prostate Specific Antigen Scr 0.76 ng/mL (<0.05-4.0)
[2024-12-10 10:25] LABS: Creatinine Urine 159.86 mg/dL; Total Protein Urine Random < 7 mg/dL (<12)
== END 2024-12-10 08:18 | disposition home or self-care (01) ==
LOC: HO.LAB 08:17
PROVIDERS: Internal Medicine Nephrology; PCP Physician Assistant; Visit Provider Physician Assistant
DX: Z12.5 Encounter for screening for malignant neoplasm of prostate (principal); E11.9 Type 2 diabetes mellitus without complications; R53.83 Other fatigue; E78.2 Mixed hyperlipidemia; I10 Essential (primary) hypertension
CPT/HCPCS: 36415; 80053; 80061; 82570; 84153; 84156; 85027

== ENCOUNTER 2024-12-14 | Outpatient (REF) | payer OTHER, SELFPAY | END 2024-12-14 00:01 | disposition home or self-care (01) | LOC: CF | PROVIDERS: PCP Physician Assistant; Visit Provider Physician Assistant | DX: Z00.00 Encounter for general adult medical examination without abnormal findings (principal); M65.332 Trigger finger, left middle finger; E78.2 Mixed hyperlipidemia; I10 Essential (primary) hypertension; E11.9 Type 2 diabetes mellitus without complications; Z79.4 Long term (current) use of insulin; Z79.899 Other long term (current) drug therapy | CPT/HCPCS: 83036; 96127 ==

== ENCOUNTER 2024-12-14 15:41 | Outpatient (AMB) | payer OTHER, SELFPAY ==
[2024-12-14 15:46] VITALS: BP 150/60; PULSE 75; TEMP 36.3; O2SAT 98
--- NOTE | 2024-12-14 15:46 | MHC.PC.OV ---
Vital Signs 12/14/24 15:46 Height 5 ft 7 in Weight 191 lb 8 oz BMI 30.0 BP 150/60 H Blood Pressure Location Lt brachial Position Sitting Pulse 75 Pulse Source Pulse Oximeter Temp 97.3 F Temp Source Temporal Artery Scan Pulse Oximetry (%) 98 Oxygen Delivery Method Room Air Intake Visit Reasons: Annual PE Collections Director Required: No Accompanied by: Self / Same As Patient All[facility]ies [facility] Adverse Reaction (Intermediate, Verified 12/14/24 16:17) GI upset Medication List - Last Reconciled 12/14/24 by Khadar Arciniega PA-C blood sugar diagnostic (FreeStyle Lite Strips) As directed blood-glucose meter (FreeStyle [place] Lite kit) As directed blood-glucose meter (FreeStyle [place] Lite kit) As directed insulin glargine (Lantus Solostar U-100 Insulin) 24 units (0.24 mL) subcut QPM 30 days lancets (FreeStyle Lancets) As directed lisinopril-hydrochlorothiazide 20-25 mg 1 tab PO DAILY 90 days pen needle, diabetic As directed sildenafil (Viagra) 100 mg PO DAILY 90 days simvastatin 10 mg PO DAILY sitagliptin phos-metformin 50-1,000 mg (Janumet) 1 tab PO BID 90 days Tobacco use date assessed: 10/28/23 Dental Screening Dental Screen Date: 12/14/24 Did you have a dental visit in the last 12 months?: Yes Did you have a dental problem in the last 6 months where you did not have access to dental care?: No Was dental information given to patient?: Patient has dentist HPI Annual PE HPI Details Patient is a 59-year-old male here today for routine annual physical ?Patient has a past medical history significant for HTN, type 2 diabetes, liver disease. .. Type 2 diabetes:? Patient continues on long-acting insulin at 20 units. A1c today acceptable. ? .. Elevated liver enzymes: Liver enzymes have improved though still slightly elevated.. Did have ultrasound of his liver in 2021 showing--> Echogenic heterogeneous liver echotexture questionable for hepatocellular disease. .. Hypertension:? Has not been regularly checking his blood pressure at home and reports 130s systolic. Today's blood pressure elevated in office. patient denies any chest pain, shortness of breath, headaches. PLAN: Will add on amlodipine 5 mg for better blood pressure control. Borderline high cholesterol:? Most recent lipid panel showing good control over total cholesterol and LDL. Patient will continue on statin therapy . VAccine : Patient considering shingles vaccine, up-to-date with pneumonia, tetanus and COVID vaccines. Colon cancer screening : Need Repeat colonoscopy this year [facility] Medical History Erectile dysfunction Cataract Pre-op examination Elevated cholesterol Diabetes HTN (hypertension) Surgical History Hx of colonoscopy History of cataract extraction History of eye surgery History of removal of cyst Family History Father Diabetes Hypertension Mother Hypertension Diabetes Social History Housing: Apartment Are you a primary primary care nurse to a significant other at home: No Do you presently have visiting nurse or other home services: No Alcohol intake: never Patient Tobacco Use Status: Never used Tobacco e-Cigarette/Vaping Use: Never Used Second Hand Smoke Exposure: No service: Yes Current occupational status: employed and retired Current occupation: [employer] Cognitive needs: No Hearing needs: No Vision needs: Yes Questionnaire PHQ-9 Over the last 2 weeks, how often have you been bothered by any of the following problems? 1. Little interest or pleasure in doing things: not at all 2. Feeling down, depressed, or hopeless: not at all 3. Trouble falling or staying asleep, or sleeping too much: not at all 4. Feeling tired or having little energy: not at all 5. Poor appetite or overeating: not at all 6. Feeling bad about yourself - or that you are a failure or have let yourself or your family down: not at all 7. Trouble concentrating on things, such as reading the newspaper or watching television: not at all 8. Moving or speaking so slowly that other people could have noticed. Or the opposite - being so fidgety or restless that you have been moving around a lot more than usual: not at all 9. Thoughts that you would be better off or of hurting yourself in some way: not at all Total score: 0 Depression Screening Interpretation: Negative Depression Screening Done: Yes 55714 - PHQ-9 Billing: Yes Source: Developed by Drs. Yony Rosales, Anuja Vega, Chad Juarez and colleagues, with an educational nathanael from [employer]. Thrive Questionnaire Date Thrive assessed: 12/14/24 I am a: Patient What is your living situation today?: I have a steady place to live Within the past 12 months, did the food you bought not last and you didn't have the money to get more?: I choose not to answer this question Within the past 12 months, did you worry whether your food would run out before you got money to buy more?: Never true Do you have trouble paying for medicines?: No Do you have trouble getting transportation to medical appointments?: No Do you have trouble paying your heating and electricity bill?: No Do you have trouble taking care of your child, family member or friend?: No Do you have trouble with day-to-day activities such as bathing, preparing meals, shopping, managing finances, etc.?: No Are you currently unemployed and looking for a job?: No Are you interested in more education?: No Please select the resources that you would like help with: None Currently or been in a relationship where the following occur: No concerns reported THRIVE Score: 0 AUDIT C Alcohol Use Questionnaire (AUDIT-C) 1. How often do you have a drink containing alcohol?: Monthly or less 2. How many drinks containing alcohol do you have on a typical day when you are drinking?: 1 or 2 3. How often do you have six or more drinks on one occasion?: Never Total Score: 1 RADHA-7 AMB Questionnaire RADHA-7 Date RADHA - 7 assessed: 12/14/24 Feeling nervous, anxious, or on edge: 0 = Not at all Not being able to stop or control worryin = Not at all Worrying too much about different things: 0 = Not at all Trouble relaxin = Not at all Being so restless that it is hard to sit still: 0 = Not at all Becoming easily annoyed or irritable: 0 = Not at all Feeling afraid as if something awful might happen: 0 = Not at all Total RADHA-7 score (0-4 normal; 5-9 mild; 10-14 moderate; 15-21 severe): 0 Source: Developed by Drs. Yony Rosales, Anuja Vega, Chad Juarez and colleagues, with an educational nathanael from [employer]. RADHA-7 Assessment Billing RADHA-7 Assessment Tool: RADHA-7 Assessment 12649 Review of Systems Const Denies body aches, Denies chills, Denies excessive sweating, Denies fatigue, Denies fever(s) and Denies headache(s) Eyes Denies blurry vision ENT Denies dysphagia, Denies vertigo, Denies dizziness, Denies headache(s), Denies hearing loss and Denies tinnitus Card Denies chest pain, Denies chest pain with activity, Denies syncope, Denies irregular heart rhythm and Denies dyspnea Resp Denies chest congestion, Denies cough, Denies hemoptysis, Denies dyspnea and Denies wheezing GI Denies abdominal pain, Denies melena, Denies hematochezia, Denies coffee ground emesis, Denies dysphagia, Denies diarrhea, Denies nausea and Denies vomiting Denies difficulty urinating, Denies dysuria, Denies urinary frequency, Denies urinary hesitancy and Denies urinary urgency Musc Denies arthralgias, Denies limited range of motion, Denies muscle cramps and Denies muscle weakness Skin/Breast Denies rash and Denies skin ulcer Neuro Denies Abnormal speech present, Denies confusion, Denies vertigo, Denies dizziness, Denies syncope, Denies headache(s), Denies memory loss and Denies seizure-like activity Psych Denies anxiety, Denies confusion, Denies depression, Denies memory loss, Denies panic attacks and Denies paranoia Endo Denies excessive sweating, Denies fatigue, Denies flushing, Denies polydipsia and Denies polyuria Aller/Immun Denies wheezing Physical exam (Primary Care) Vital Signs: Last Vital Signs Temp 97.3 F 12/14/24 15:46 Pulse 75 12/14/24 15:46 BP 150/60 H 12/14/24 15:46 Pulse Ox 98 12/14/24 15:46 Oxygen Delivery Method Room Air 12/14/24 15:46 BMI result Body Mass Index 30.0 Tobacco/Smoking Status: Tobacco use Status Tobacco use date assessed 10/28/23 12/14/24 15:46 Patient Tobacco Use Status Never used Tobacco 12/14/24 15:46 e-Cigarette/Vaping Use Never Used 12/14/24 15:46 PHQ-9: PHQ-9 Score PHQ-9: Total score 0 12/14/24 17:02 Depression Screening Interpretation: Negative Thrive Assessment: Date of Thrive Assessment Date Thrive assessed 12/14/24 12/14/24 16:08 Currently or been in a relationship where the following occur: No concerns reported Const General: cooperative, comfortable, no acute distress, alert and awake; No confusion Orientation/consciousness: oriented to person, oriented to place, patient oriented x3 and No confusion HENMT Head: Yes normocephalic Ears: external ears normal and TM's normal bilaterally Face and sinus: No sinus tenderness Mouth: Normal oral and palatal mucosa present and tongue normal Teeth and gingiva: dentition normal and gingiva normal Throat: Yes posterior oropharynx normal, Yes tonsils normal and Yes uvula midline Eyes Conjunctivae: conjunctivae normal Sclerae: sclerae normal Pupils: Equal, round and reactive pupils present EOM: EOMs intact bilaterally Direct Ophthalmoscopy: No no photophobia Neck Neck: Yes no lymphadenopathy, No tender and Yes no JVD Thyroid: Thyroid normal Carotids: no bruits Chest Chest palpation & inspection: no tenderness Resp Effort & Inspection: normal respiratory effort, no audible wheezes, not labored and no stridor Auscultation: no crackles, no rales, no rhonchi and no wheezes Cardio Jugular venous distension: no JVD Rate: regular rate, not bradycardic and not tachycardic Rhythm: regular rhythm Bruits: no carotid bruits Peripheral pulses: Peripheral pulses 2+ throughout GI Inspection: Yes normal to inspection, No abdominal wall ecchymosis and No visible herniation Palpation (GI): Soft to palpation, nontender, no guarding, not rigid and No hepatosplenomegaly present Auscultation: normoactive bowel sounds General: Yes no CVA tenderness Back/Spine/Pelvis Back: no CVA tenderness and No back tenderness Cervical Spine: cervical ROM normal Thoracic/Lumbar Spine: thoracic and lumbar spine normal to inspection, straight leg raise negative bilaterally, No thoraco-lumbar ROM limited and No lumbar spinal tenderness Skin Lesions: no lesions Rashes: no rashes Wounds: no wounds Neuro General: oriented to person, oriented to place, patient oriented x3, CN's II-XI intact bilaterally and No confusion Cranial nerves: Yes Equal, round and reactive pupils present and Yes Normal accommodation reflex present Cognition (Neuro): normal cognition Speech: No Abnormal speech present Gait exam (Neuro): Normal gait present Motor exam (neuro): 5/5 motor strength present throughout Extrem Right upper extremity: full ROM; no cyanosis Left upper extremity: full ROM; no cyanosis Right lower extremity: no edema Left lower extremity: no edema Psych Appearance: grossly normal Mental Status: mental status grossly normal Affect: normal affect Attitude: cooperative Thought process: Normal thought process present Results AMB Hemoglobin A1c AMB Hemoglobin A1c 5.7 % Last Edit by ALEXANDER Ordaz on 12/14/24 17:02 Results Reviewed Results Reviewed: Laboratory Last Values Hgb A1c (Clinic) 5.7 % (4.0-6.0) 12/14/24 16:08 Coding Level of Care Code Est Pt Prev Care 40-64y(62286) Diagnoses Annual physical exam Z00.00 Trigger finger, left middle finger M65.332 Mixed hyperlipidemia E78.2 Hyperlipidemia type: mixed hyperlipidemia Essential hypertension I10 Hypertension type: essential hypertension Type 2 diabetes mellitus without complication, without long-term current use of insulin E11.9 Diabetes mellitus complication status: without complication Diabetes mellitus jail insulin use: without termite control servicer use Additional Codes RADHA-7 Assessment Billing - RADHA-7 Assessment Tool: RADHA-7 Assessment 52120 ([id number]) PHQ-9 - 67737 - PHQ-9 Billing: Yes ([id number]) Assessment & Plan Assessment & Plan (1) Annual physical exam: Code(s): Z00.00 - Encounter for general adult medical examination without abnormal findings Category: Medical Plan: As per HPI (2) Trigger finger, left middle finger: Code(s): M65.332 - Trigger finger, left middle finger Category: Medical Plan: Patient reports left middle finger locking, we consider seeing orthopedic hand surgeon for possible cortisone injection though will like to hold off on referral for now. (3) HLD (hyperlipidemia): Code(s): E78.5 - Hyperlipidemia, unspecified Category: Medical Qualifiers: Hyperlipidemia type: mixed hyperlipidemia Qualified Code(s): E78.2 - Mixed hyperlipidemia Plan: Patient's most recent lipid panel showing good control of his total cholesterol and LDL. Will continue his current dose of simvastatin 10 mg with goal LDL to remain below 100 (4) HTN (hypertension): Code(s): I10 - Essential (primary) hypertension Category: Medical Qualifiers: Hypertension type: essential hypertension Qualified Code(s): I10 - Essential (primary) hypertension Plan: Patient's blood pressure elevated today in office. Will add on amlodipine 5 mg for better blood pressure control. Goal blood pressures to be below 140/90 (5) DMII (diabetes mellitus, type 2): Code(s): E11.9 - Type 2 diabetes mellitus without complications Category: Medical Qualifiers: Diabetes mellitus complication status: without complication Diabetes mellitus jail insulin use: without jail use Qualified Code(s): E11.9 - Type 2 diabetes mellitus without complications Plan: Patient's type 2 diabetes well controlled with current dose of Lantus and oral regime. A1c is to remain below 7.0 Orders: Orders AMB Hemoglobin A1c 12/14/24 E11.9 - Type 2 diabetes mellitus without complications Lipid Panel 12/14/24 E11.9 - Type 2 diabetes mellitus without complications Complete Blood Count no Diff 12/14/24 I10 - Essential (primary) hypertension Comprehensive [place]. Panel Fast 12/14/24 I10 - Essential (primary) hypertension Hemoglobin A1c 12/14/24 E11.9 - Type 2 diabetes mellitus without complications Medications: New amlodipine 5 mg PO DAILY 90 tabs 1RF I10 - Essential (primary) hypertension Changed From insulin glargine (Lantus Solostar U-100 Insulin) 24 units (0.24 mL) subcut QPM 30 days 7.2 mL 3RF E11.9 - Type 2 diabetes mellitus without complications To insulin glargine (Lantus Solostar U-100 Insulin) 28 units (0.28 mL) subcut QPM 30 days 15 mL 3RF E11.9 - Type 2 diabetes mellitus without complications Patient Instructions: Goal: A1c to be below 7.0, blood pressure to remain below 140/90 Barriers: Adherence to physical activity and healthy eating habits
== END 2024-12-14 16:33 | disposition home or self-care (01) ==
LOC: HO.HMCH 15:42
PROVIDERS: PCP Physician Assistant; Visit Provider Physician Assistant
DX: E11.9 Type 2 diabetes mellitus without complications (principal)

== ENCOUNTER 2024-12-28 09:17 | Outpatient (REF) | payer OTHER, SELFPAY ==
[2024-12-28 09:23] VITALS: BP 157/69; PULSE 70; RESP 16; TEMP 36.2; O2SAT 98; BMI 30.1
== END 2024-12-28 09:18 | disposition home or self-care (01) ==
LOC: HO.MS 09:17
PROVIDERS: PCP Physician Assistant; Visit Provider Ophthalmology
PROC: (CPT 66821; principal; 2024-12-28 11:00)
DX: H26.492 Other secondary cataract, left eye (principal)
CPT/HCPCS: 66821

== ENCOUNTER 2025-01-25 09:34 | Day surgery (SDC) | payer OTHER, SELFPAY ==
[2025-01-21 16:13] VITALS: BMI 30.4
--- NOTE | 2025-01-22 09:02 | HO.ANESPROP2 ---
HPI - Anesthesia Eval Consult details Narrative: 59 yr old male for colonoscopy Type 2 Diabetes: A1C 5.2%, on Janumet, insulin PMFSH Active Problems Active Problems: All Active Problems Trigger finger, left middle finger (Acute) High serum testosterone (Acute) Nonfamilial multiple polyposis syndrome (Acute) Tubular adenoma of colon (Acute) Abnormal EKG (Acute) HLD (hyperlipidemia) (Acute) First degree AV block (Acute) Preoperative clearance (Acute) Hepatocellular injury (Acute) Elevated liver enzymes (Acute) Multiple adenomatous polyps (Acute) Screening-pulmonary TB (Acute) Annual physical exam (Acute) DMII (diabetes mellitus, type 2) (Acute) HTN (hypertension) (Acute) Past Medical History Medical History (Updated 12/15/24 @ 07:28 by Khadar Arciniega PA-C) Erectile dysfunction Cataract Pre-op examination Elevated cholesterol Diabetes HTN (hypertension) Family History Family History Father Diabetes Hypertension Mother Hypertension Diabetes Family history of problems with anesthesia: No Surgical History Surgical History (Updated 01/21/25 @ 15:56 by Coral Cedeno, ALEA) Hx of colonoscopy (07/08/23) History of cataract extraction History of eye surgery History of removal of cyst History of Problems with Anesthesia: No Social History Social History (Updated 01/21/25 @ 16:16 by Coral Cedeno, ALEA) Household Members: Spouse Housing: House Are you a primary daycare worker to a significant other at home: No Do you presently have visiting nurse or other home services: No Alcohol intake: never Patient Tobacco Use Status: Never used Tobacco e-Cigarette/Vaping Use: Never Used Second Hand Smoke Exposure: No Use of substances other than those prescribed or required for medical reasons: No Advance Directives: No Advance Directives Information Provided: No Advance Directives on File: No service: Yes Current occupational status: employed and retired Current occupation: [employer] Cognitive needs: No Hearing needs: No Vision needs: Yes Meds Allergies Allergy/AdvReac Type Severity Reaction Status Date / Time [facility] AdvReac Intermediate GI upset Verified 01/21/25 16:13 Exam Height,Weight and Vital Signs: Height 5 ft 7 in Weight 87.997 kg Assessment and Plan Final Anesthetic Review Family History of Problems with Anesthesia: No History of Problems with Anesthesia: No
[2025-01-25 09:53] VITALS: BMI 29.0
[2025-01-25 09:55] VITALS: BP 142/53; PULSE 78; RESP 16; TEMP 37.2; O2SAT 99
[2025-01-25 10:07] LABS: Glucose, Whole Blood 134 mg/dL (60-115)
[2025-01-25] MEDS: Lactated Ringers 1,000 ML 100 ML IVCONT (10:09)
--- NOTE | 2025-01-25 10:10 | MHC.SHP ---
Pre-Procedural Eval Section A - 24 Hr Update-Section A only Date of Service: 01/25/25 The patient is an INPATIENT: No The patient has been examined within 24 hours of the surgical procedure. The History & Physical has been completed within 30 days and I have reviewed it.: No Section B - Complete if H&P > 30 days Chief Complaint: Surveillance for colon polyps Relevant Family History (Specify if Yes): No Relevant Social History: None Present Medications: see Short Stay Collaborative assessment Medical History: Significant History (Elevated cholesterol Diabetes HTN (hypertension)) History of Previous Operations: Relevant previous surgery/procedure and date(s) (Hx of colonoscopy History of cataract extraction History of eye surgery History of removal of cyst) Allergies: Allergies Allergy/AdvReac Type Severity Reaction Status Date / Time dulaglutide (From [facility]) AdvReac Intermediate GI upset Verified 01/21/25 16:13 Review of Systems Sugical H&P ROS: Negative: Constitution, Cardiovascular, Respiratory and Gastrointestinal Exam Surgical H&P Exam: Normal: Heart, Normal: Lungs, Normal: Extremities and Normal: Abdomen Plan Diagnosis/Plan: Change (Proceed with colonoscopy) I have reviewed the history and physical and performed a pertinent physical examination on my patient. No changes have occurred unless specified. Time Spent With Patient Time: Total time managing care of this patient today ____ minutes.
--- NOTE | 2025-01-25 11:33 | HO.ANESPROP2 ---
[facility] Active Problems Active Problems: All Active Problems (Updated 12/15/24 @ 07:28 by Khadar Arciniega PA-C) Trigger finger, left middle finger (Acute) High serum testosterone (Acute) Nonfamilial multiple polyposis syndrome (Acute) Tubular adenoma of colon (Acute) Abnormal EKG (Acute) HLD (hyperlipidemia) (Acute) First degree AV block (Acute) Preoperative clearance (Acute) Hepatocellular injury (Acute) Elevated liver enzymes (Acute) Multiple adenomatous polyps (Acute) Screening-pulmonary TB (Acute) Annual physical exam (Acute) DMII (diabetes mellitus, type 2) (Acute) HTN (hypertension) (Acute) Past Medical History Medical History Erectile dysfunction Cataract Pre-op examination Elevated cholesterol Diabetes HTN (hypertension) Family History Family History Father Diabetes Hypertension Mother Hypertension Diabetes Family history of problems with anesthesia: No Surgical History Surgical History Hx of colonoscopy (07/08/23) History of cataract extraction History of eye surgery History of removal of cyst History of Problems with Anesthesia: No Social History Social History Household Members: Spouse Housing: House Are you a primary day care home mother to a significant other at home: No Do you presently have visiting nurse or other home services: No Alcohol intake: never Patient Tobacco Use Status: Never used Tobacco e-Cigarette/Vaping Use: Never Used Second Hand Smoke Exposure: No Use of substances other than those prescribed or required for medical reasons: No Have you been hit, kicked, punched, or otherwise hurt by someone within the past year? If so, by whom?: No Are you DNR?: No Advance Directives: No (will bring dos) Advance Directives Information Provided: Yes Advance Directives on File: No Poor oral hygiene: No service: Yes Current occupational status: employed and retired Current occupation: [employer] Cognitive needs: No Hearing needs: No Vision needs: Yes Meds Allergies Allergy/AdvReac Type Severity Reaction Status Date / Time dulaglutide (From Trulicity) AdvReac Intermediate GI upset Verified 01/21/25 16:13 Active Medications: Current Medications Lactated Ringer's (Lr) 1,000 mls @ 100 mls/hr IVCONT .Q10H RICHARD Last Admin: 01/25/25 10:09 Dose: 100 mls/hr Home Medications ?Medication ?Instructions ?Recorded ?Confirmed ?Last Taken ?Type sildenafil 100 mg tablet (Viagra) 100 mg PO DAILY PRN Sexual Activity 01/25/25 Unknown History Exam Height,Weight and Vital Signs: Height 5 ft 7 in Weight 84.1 kg Last Vital Signs Temp 99.0 F 01/25/25 09:55 Pulse 78 01/25/25 09:55 Resp 16 01/25/25 09:55 BP 142/53 H 01/25/25 09:55 Pulse Ox 99 01/25/25 09:55 O2 Del Method Room Air 01/25/25 09:55 Pertinent Lab Results Pertinent Lab Results: Laboratory Tests 01/25/25 10:04 POC Glucose 134 H Airway Mallampati Class: II TM Dist: >3cm Neck ROM: Full Heart: RRR Lungs: CTA Assessment and Plan Assessment Anesthesia Assessment: Anesthesia Plan Discussed Final Anesthetic Review Family History of Problems with Anesthesia: No History of Problems with Anesthesia: No NPO: Yes ASA Class: II Final Preanesthetic Review: Meds/Allgs Chart Reviewed, Consent Obtained/Reviewed and Anes Risks/Benef Reviewed Patient Risk: Low Procedure Risk: Low Anesthetic Plan Anesthetic Plan: MAC: Disposition: Standard PACU
--- NOTE | 2025-01-25 12:07 | P.OPN-COLO_ITS ---
Colonoscopy Operative Note Operative Note Date of Service: 01/25/25 Narrative: COLONOSCOPY TILL CECUM WITH SNARE POLYPECTOMY, SUBMUCOSAL INJECTION AND HEMOCLIP PLACEMENT. Pre-op diagnosis: Surveillance for colon polyps. Post-op diagnosis:? Colon polyps, Diverticulosis, hemorrhoids Endoscopist:? Dru Durbin MD Anesthesia:?MAC Consent: Indications for the procedure and potential complications of bleeding, perforation, reaction to medications and missed diagnosis were discussed with the patient and informed consent was obtained. Instrument: Olympus CF H 190 L variable stiffness adult colonoscope Monitoring: Vital signs and clinical assessment, intermittent blood pressure monitoring, continuous EKG monitoring, Pulse oximetry and Carbon Dioxide monitoring were done throughout the procedure. Please see anesthesia flowsheet. Colon withdrawl time was 26 minutes. Procedure: The patient was placed in the left lateral decubitis position and pre-procedure medications were administered. After a digital rectal examination of the ano-rectum, the video colonoscope was inserted into the rectum and advanced through the colon to the cecum. The colonoscope was slowly withdrawn in a retrograde panoramic fashion and the colon mucosa was carefully examined including a retroflexed view of the rectum. Findings and interventions are described below. Procedure Difficulty: Colon was long and there was spasm and some loop formation. Findings: Terminal Ileum: Not evaluated Cecum: Normal Ascending Colon: A 15 mm non-bleeding AVM Transverse Colon: A 2 cms flat sessile polyp at 90 cms. Polyp was raised with 3 cc of Eleview and removed with a stiff hot snare. Margins of the polypectomy site was treated with cautery using the snare tip, closed with 1 hemoclip and marked by Vianey ink. A 12 mm sessile polyp removed with a hot snare. A 12 mm non-bleeding AVM in the transverse Descending Colon: Normal Sigmoid Colon: A 10 mm sessile polyp - removed with a hot snare. Moderate diverticulosis Rectum: Normal Ano-rectum: Moderate internal hemorrhoids Colon preparation: Good after copious irrigation. [place] Bowel Preparation Scale Right colon; 2 Transverse colon: 2 Left colon; 2 (0 = Unprepared colon segment with mucosa not seen due to solid stool that cannot be cleared. 1 = Portion of mucosa of the colon segment seen, but other areas of the colon segment not well seen due to staining, residual stool and/or opaque liquid. 2 = Minor amount of residual staining, small fragments of stool and/or opaque liquid, but mucosa of colon segment seen well. 3 = Entire mucosa of colon segment seen well with no residual staining, small fragments of stool or opaque liquid) Impression and Post Procedure Diagnosis: Colonoscopy Findings: Three medium sized polyps were removed Moderate diverticulosis seen in the left colon Moderate hemorrhoids on retroflexed exam. Plan: I will send a letter with biopsy results. Repeat Colonoscopy in 1 year if polyps are adenomatous and to check polypectomy site in the transverse colon. Above findings were reviewed with the patient and relevant handouts were given and the discharge area. BIOPSIES SHOWED: A. Colon, transverse, polypectomy: Tubular adenoma; negative for high-grade dysplasia or carcinoma. B. Colon, transverse at 90 cm, polypectomy: Fragments of tubular adenoma; negative for high-grade dysplasia or carcinoma. C. Colon, sigmoid, polypectomy: Fragments of tubular adenoma; negative for high- grade dysplasia or carcinoma Letter sent to the patient with biopsy results. Patient placed on the colonoscopy recall list for repeat colonoscopy in 1 year.
[2025-01-25 12:10] VITALS: BP 113/48; PULSE 66; RESP 16; TEMP 36.2; O2SAT 97
[2025-01-25 12:15] VITALS: BP 115/54; PULSE 65; RESP 16; O2SAT 97
[2025-01-25 12:30] VITALS: BP 130/67; PULSE 67; RESP 16; O2SAT 97
[2025-01-25 12:45] VITALS: BP 135/69; PULSE 65; RESP 18; TEMP 36.3; O2SAT 98
--- NOTE | 2025-01-25 13:57 | HO.POSTANES ---
Post Anesthesia Evaluation Post Anesthesia Evaluation Date of Service: 01/25/25 Vital Signs: Vital Signs Temp Pulse Resp BP Pulse Ox O2 Del Method 01/25/25 12:45 97.4 F 65 18 135/69 98 Room Air 01/25/25 12:30 67 16 130/67 97 Room Air 01/25/25 12:15 65 16 115/54 L 97 Room Air 01/25/25 12:10 97.1 F 66 16 113/48 L 97 Room Air 01/25/25 09:55 99.0 F 78 16 142/53 H 99 Room Air Anesthesia: Monitored Mental Status: Awake Pain Control: Satisfactory Nausea/Vomiting: None Hydration: Adequate Anesthesia-Related Issues: No Anes. Related Issues
== END 2025-01-25 12:59 | disposition home or self-care (01) ==
PROVIDERS: PCP Physician Assistant; Visit Provider Internal Medicine Gastroenterology
PROC: 0DJD8ZZ Inspection of Lower Intestinal Tract, Via Natural or Artificial Opening Endoscopic (ICD-10-PCS; CPT 45378; principal; 2025-01-25 11:20)
DX: Z12.11 Encounter for screening for malignant neoplasm of colon (principal); Z86.0101 Personal history of adenomatous and serrated colon polyps; D12.3 Benign neoplasm of transverse colon; D12.5 Benign neoplasm of sigmoid colon; K57.30 Diverticulosis of large intestine without perforation or abscess without bleeding; K64.8 Other hemorrhoids; K55.20 Angiodysplasia of colon without hemorrhage; I10 Essential (primary) hypertension; E78.00 Pure hypercholesterolemia, unspecified; E11.9 Type 2 diabetes mellitus without complications; Z79.899 Other long term (current) drug therapy; Z88.8 Allergy status to other drugs, medicaments and biological substances
CPT/HCPCS: 45385; 45381; 82947; 88305

== ENCOUNTER → 2025-01-25 09:34 | Outpatient (BNV) | payer OTHER, SELFPAY | PROVIDERS: PCP Physician Assistant; Visit Provider Internal Medicine Gastroenterology | DX: Z12.11 Encounter for screening for malignant neoplasm of colon (principal); K55.20 Angiodysplasia of colon without hemorrhage; D12.3 Benign neoplasm of transverse colon; D12.5 Benign neoplasm of sigmoid colon; K57.30 Diverticulosis of large intestine without perforation or abscess without bleeding; K64.8 Other hemorrhoids | CPT/HCPCS: 45381; 45385 ==

== ENCOUNTER 2025-03-06 08:46 | Outpatient (REF) | payer OTHER, SELFPAY ==
--- OUTSIDE RECORDS SUMMARY | 2025-03-06 08:48 | XMS_ITS | Clinical Summary ---
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 If his renal function is acceptable, we will start him back on metformin at 1500 mg daily. He was given dietary counseling and I encouraged him to begin walking 30 minutes/day at least 4 days/week. He is not interested in diabetes education at this time although I do think will be quite helpful and will readdress this with him at his next appointment. Essential hypertension 11/17/2018 Assessment & Plan (11/17/2018 10:07 PM EDT): Blood pressure is elevated. Encouraged him to work hard a low-salt diet and work on losing some weight and exercising more. Again if his renal function is acceptable I will start him on a low-dose of an PERCY inhibitor once I see his lab results. I will see him back in the office in 3 months. Social History Tobacco Use Types Packs/Day Years Used Date Smoking Tobacco: Never Smokeless Tobacco: Never Alcohol Use Standard Drinks/Week Comments Never 0 (1 standard drink = 0.6 oz pur e alcohol) Education Answer Date Recorded Are you interested in more education? Not on anselmo e 10/26/2022 Are you concerned about learning? Not on file 10/26/2022 No 10/26/2022 No 10/26/2022 Digital Access Answer Date Recorded No 11/24/2022 No 11/24/2022 No 11/24/2022 Reliable internet access at home? Not on file 11/24/2022 Device with a working camera? Not on file Sex and Gender Information Value Date Recorded Sex Assigned at Not on file Legal Sex Male 9:14 AM EST Gender Identity Not on file Sexual Orientation Not on file Last Filed Vital Signs Vital Sign Reading Time Taken Comments Blood Pressure 136/80 11/17/2018 4:33 PM EDT Pulse 83 11/17/2018 4:33 PM EDT Temperature 36.5 C (97.7 F) 11/17/2018 4:33 PM EDT Respiratory Rate - - Oxygen Saturation 98% 11/17/2018 4:33 PM EDT Inhaled Oxygen Concentration - - Weight 83.9 kg (185 lb) 11/17/2018 4:33 PM EDT Height 171.5 cm (5' 7.52 ) 11/17/2018 4:33 PM ED T Body Mass Index 28.53 11/17/2018 4:33 PM EDT Plan of Treatment Health Maintenance Due Date Last Done Comments Adult Td,Tdap Booster 1963 BLOOD PRESSURE 1963 DEPRESSION SCREENING 1975 HEPATITIS C SCREENING 1981 HIV ONE-TIME SCREENING (18-65 YEARS) 1981 COLOGUARD 2008 COLONOSCOPY 2008 COLORECTAL CANCER SCREENING 2008 FIT TEST 2008 FOBT 2008 SIGMOIDOSCOPY 2008 VIRTUAL COLONOSCOPY 2008 PNEUMOCOCCAL VACCINES (50+ years) (2 of 2 - PCV) 05/22/2011 05/22/2010 ZOSTER VACCINES (1 of 2) 2013 DIABETIC EYE EXAM 11/17/2018 URINE MICROALBUMIN/CREATININE RATIO 11/17/2018 HEMOGLOBIN A1C 02/18/2019 11/18/2018 CREATININE LEVEL 11/19/2019 11/18/2018 LIPID PANEL 11/19/2019 11/18/2018 INFLUENZA VACCINE (#1) 2025 0, 05/15/2019, 04/27/2013, Additional history exists COVID-19 VACCINE (3 - 2024- season) 2025 09/13/2020, 08/16/2020 RSV VACCINE (1 - 1-dose 75+ series) 2038 SMOKING STATUS SCREENING (Once After 26 Yrs) Completed 11/17/2018 HEPATITIS A VACCINES Aged Out No long er eligible based on patient's age to complete this topic HIB VACCINES Aged Out No longer eligi ble based on patient's age to complete this topic MENINGOCOCCAL VACCINES (ACWY) Aged Out No longer eligible based on patient's age to complete this topic MENINGOCOCCAL VACCINES (B) Aged Out N o longer eligible based on patient's age to complete this topic Medical Devices Not on file Procedures Procedure Name Priority Date/Time Associated Diagnosis Comments HEMOGLOBIN A1C Routine 11/18/2018 4:18 PM EDT Type 2 diabetes mellitus with 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, without long-term current use of insulin LIPID PANEL Routine 11/18/2018 4:18 PM EDT Type 2 diabetes mellitus with 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, without long-term current use of insulin COMPREHENSIVE METABOLIC PANEL Routine 11/18/2018 4:18 PM EDT Type 2 diabetes mellitus with 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, without long-term current use of insulin from Last 3 Months or Most Recently Relevant to Health Maintenance Results * (ABNORMAL) Comprehensive metabolic panel (11/18/2018 4:18 PM EDT) SODIUM 139 133 - 146 mmol/L [facility] POTASSIUM 4.4 3.3 - 5.1 mmol/L [facility] CHLORIDE 98 96 - 108 mmol/L [facility] CO2 27 21 - 35 mmol/L [facility] BUN 15 6 - 19 mg/dL [facility] CREATININE 0.80 0.5 - 1.5 mg/dL [facility] GLUCOSE 214(H) 70 - 99 mg/dL [facility] ALBUMIN 4.1 3.9 - 4.8 g/dL [facility] TOTAL PROTEIN 7.8 6.5 - 8.0 g/dL [facility] CALCIUM 9.7 8.4 - 10.3 mg/dL [facility] ALKALINE PHOSPHATASE 118(H) 39 - 117 U/L [facility] TOTAL BILIRUBIN 0.8 0.0 - 1.2 mg/dL [facility] AST 27 0 - 37 U/L [facility] ALT 34 0 - 40 U/L [facility] GLOBULIN 3.7 1 - 4.8 g/dL [facility] EGFR 101 >59 mL/min/1.7 3m2 [facility] Comment:If patient is black, multiply result by 1.159. Estimated glomerular filtration rate calculated using the CKD-EPI equation. ANION GAP 18 10 - 20 mmol/L [facility] Blood 11/18/2018 4:18 PM EDT 11/18/2018 4:30 PM EDT us Rishi Renteria MD LAB BLOOD ORDERABLES Final Result [address] [address] * (ABNORMAL) Hemoglobin A1c (11/18/2018 4:18 PM EDT) HEMOGLOBIN A1C 10.5(H) 4.3 - 5.8 % [facility] Blood 11/18/2018 4:18 PM EDT 11/18/2018 4:30 PM EDT us Rishi Renteria MD LAB BLOOD ORDERABLES Final Result [address] [address] * (ABNORMAL) Lipid panel (11/18/2018 4:18 PM EDT) HDL 48 mg/dL [facility] Comment: Interpretation <40 mg/dL: Low HDL cholesterol (major risk factor for CHD) Greater than or equal to 60 mg/dL: High HDL cholesterol ( negative risk factor for CHD) HDL - cholesterol is affected by a number of factors, e.g. smoking, excerise, hormones, sex and age. CHOLESTEROL 125 0 - 240 mg/dL [facility] TRIGLYCERIDES 81 30 - 160 mg/dL [facility] LDL 61 50 - 129 mg/dL [facility] Comment: LDL levels in terms of risk for coronary heart disease: <100 mg/dL: Optimal 100-129 mg/dL: Near or above optimal 130-159 mg/dL: Borderline high 160-189 mg/dL: High >190 mg/dL: Very High CARDIAC RISK RATIO 2.6(L) 3.4 - 5.0 C [facility] Blood 11/18/2018 4:18 PM EDT 11/18/2018 4:30 PM EDT Rishi Renteria MD LAB BLOOD ORDERABLES Final Result Performing Organization Address City/State/[facility] Co de Phone Number [address] [address] from Last 3 Months or Most Recently Relevant to Health Maintenance Insurance [facility] Address: [facility] [id number] [place] [address] Care Teams Automotive Glass Technician Relationship Specialty Start Date End Date Unknown, Unknown, [address] [address] PCP - General 10/16/19 Marcos Ramsay MD [address] [address] Ophthalmology 11/17/18 Additional Source Comments The information contained in this document represents components of the legal health record. It is not the complete legal health record.[facility]
[2025-03-06 09:22] LABS: Hematocrit 32.5 % (42.0-52.0); Hemoglobin 11.2 g/dl (14.0-18.0); Mean Corpuscular HGB Conc 34.5 g/dl (31.0-36.0); Mean Corpuscular Hemoglobin 31.4 pg (27.0-33.0); Mean Corpuscular Volume 91.0 fL (80.0-98.0); NRBC Abs Auto 0.000 X10*3/uL (0.0-0.012); NRBC Pct Auto 0.0 /100WBC (0.0-0.2); Platelet Count 149 X10*3/uL (160-400); Red Blood Count 3.57 X10*6/uL (4.60-5.80); White Blood Count 6.7 X10*3/uL (4.8-10.8)
[2025-03-06 09:33] LABS: Hemoglobin A1C 115.2823 umol/L; Total Hemoglobin (HGBA1C) 3001.9230 umol/L
[2025-03-06 11:01] LABS: Alanine Aminotransferase 65 U/L (0-40); Albumin Level 3.3 g/dL (3.5-5.0); Alkaline Phosphatase 193 U/L (39-117); Anion Gap 11 (12-20); Aspartate Amino Transferase 80 U/L (5-37); Blood Urea Nitrogen 25 mg/dL (9-16); Calcium 9.4 mg/dL (8.4-10.2); Carbon Dioxide 27 mmol/L (22-29); Chloride 104 mmol/L (96-108); Cholesterol 131 mg/dL (<200); Estimated Glomerular Filt Rate 59; HDL Cholesterol 57 mg/dL (>40); Potassium 4.4 mmol/L (3.3-5.1); Sodium 138 mmol/L (135-145); Total Protein 7.4 g/dL (6.5-8.0); Triglycerides 63 mg/dL (<150)
== END 2025-03-06 08:47 | disposition home or self-care (01) ==
LOC: HO.LAB 08:46
PROVIDERS: PCP Physician Assistant; Visit Provider Internal Medicine Nephrology
DX: I10 Essential (primary) hypertension (principal); E11.9 Type 2 diabetes mellitus without complications
CPT/HCPCS: 36415; 80053; 80061; 83036; 85027

== ENCOUNTER 2025-03-09 15:31 | Outpatient (AMB) | payer OTHER, SELFPAY ==
--- NOTE | 2025-03-09 15:37 | HO.NEPHOV ---
Vital Signs 03/09/25 15:38 Height 5 ft 7 in Weight 195 lb 2 oz BMI 30.6 BP 136/60 Blood Pressure Location Rt brachial Position Sitting Pulse 72 Pulse Source Pulse Oximeter Pulse Oximetry (%) 97 Oxygen Delivery Method Room Air Intake Visit Reasons: 1 yr follow up/ CONF Digital Marketing Assistant Required: No Accompanied by: Self / Same As Patient [facility]ies [facility] Adverse Reaction (Intermediate, Verified 03/09/25 15:38) GI upset HPI Comments Details: I had the pleasure of seeing Sree who is a 58-year-old male in follow up for labile blood pressure. He is a diabetic but denies retinopathy or proteinuria. He has hypertension for a long time and he randomly checks his BP at home. He is known to have liver disease. His A1c is now much improved to 5.8. He continues on lisinopril hydrochlorothiazide. Patient denies any chest pain, shortness of breath, headaches, visual disturbances, shortness of breath, PND, orthopnea, pedal edema, hematuria, excess NSAID use. He denies excess sodium intake. He had 24 hour BPM which showed well controlled BP. He did not have any systemic complaints at the time of this visit [facility] Medical History Erectile dysfunction Cataract Pre-op examination Elevated cholesterol Diabetes HTN (hypertension) Surgical History Hx of colonoscopy (07/08/23) History of cataract extraction History of eye surgery History of removal of cyst Family History Father Diabetes Hypertension Mother Hypertension Diabetes Social History Household Members: Spouse Housing: House Are you a primary critical care nurse specialist to a significant other at home: No Do you presently have visiting nurse or other home services: No Alcohol intake: never Patient Tobacco Use Status: Never used Tobacco e-Cigarette/Vaping Use: Never Used Second Hand Smoke Exposure: No service: Yes Current occupational status: employed and retired Current occupation: [employer] Cognitive needs: No Hearing needs: No Vision needs: Yes Review of Systems Const All systems reviewed & are unremarkable except as noted in HPI and below Physical Exam Vital Signs: Last Vital Signs Pulse 72 03/09/25 15:38 BP 136/60 03/09/25 15:38 Pulse Ox 97 03/09/25 15:38 Oxygen Delivery Method Room Air 03/09/25 15:38 BMI result Body Mass Index 30.6 Const General: comfortable and no acute distress Orientation/consciousness: patient oriented x3 HEENT Head: Yes normocephalic Mouth: Normal oral and palatal mucosa present Eyes EOM: EOMs intact bilaterally Neck Neck: Yes supple Resp Auscultation: clear to auscultation bilaterally Cardio Jugular venous distension: no JVD Rate: regular rate GI Palpation (GI): Soft to palpation Auscultation: normal bowel sounds General: Yes no CVA tenderness Back/Spine/Pelvis Back: no CVA tenderness Skin General skin exam: no rashes or lesions noted Neuro General: patient oriented x3 and moves all extremities Extrem General: Yes no pedal edema Results Reviewed Nephrology Results: Hgb, (14.0-18.0) 11.2 g/dl L 03/06/25 WBC, (4.8-10.8) 6.7 X10*3/uL 03/06/25 Plt Count, (160-400) 149 X10*3/uL L 03/06/25 Sodium, (135-145) 138 mmol/L 03/06/25 Potassium, (3.3-5.1) 4.4 mmol/L 03/06/25 Chloride, (96-108) 104 mmol/L 03/06/25 Carbon Dioxide, (22-29) 27 mmol/L 03/06/25 BUN, (9-16) 25 mg/dL H 03/06/25 Creatinine, (0.5-1.4) 1.24 mg/dL 03/06/25 Calcium, (8.4-10.2) 9.4 mg/dL 03/06/25 Urine Creatinine 159.86 mg/dL 12/10/24 Protein/Creatinin Ratio TNP 12/10/24 Assessment & Plan Assessment & Plan (1) HTN (hypertension): Code(s): I10 - Essential (primary) hypertension Category: Medical Qualifiers: Hypertension type: essential hypertension Qualified Code(s): I10 - Essential (primary) hypertension Plan Sree has longstanding hypertension. He has no retinopathy, LVH, proteinuria or renal dysfunction. His BP is at goal at home. He underwent 24 hour BPM which showed well controlled BP.. He has no H/O CAD, JEFFRY, PAD, CVA or CHF. He denies taking excess sodium in the diet. His volume status is optimal. He could continue on current dose of lisinopril/ HCTZ. He is a great candidate for Jardiance . I did not make any medication change today. Answered all questions. F/U given in a year Orders: Orders Hemoglobin A1c 1 Year I10 - Essential (primary) hypertension Protein Creatinine Ratio, Ur 1 Year I10 - Essential (primary) hypertension Blood Urea Nitrogen 1 Year I10 - Essential (primary) hypertension Electrolytes 1 Year I10 - Essential (primary) hypertension Calcium 1 Year I10 - Essential (primary) hypertension Creatinine 1 Year I10 - Essential (primary) hypertension Coding Level of Care Code Est Pt Level 4 (03417) Diagnoses Essential hypertension I10 Hypertension type: essential hypertension
[2025-03-09 15:38] VITALS: BP 136/60; PULSE 72; O2SAT 97; BMI 30.6
--- OUTSIDE RECORDS SUMMARY | 2025-03-09 17:43 | XMS_ITS | Clinical Summary ---
Author Organization [employer] [facility] Address [address] [place] [address] Phone Care Team Providers Care Recording Studio Setup Worker Name Role Phone Marcos Ramsay MD Unavailable [phone] Unknown, Unknown Primary Care Provider Luisito lable [...] EDT) SODIUM 139 133 - 146 mmol/L [facility] POTASSIUM 4.4 3.3 - 5.1 mmol/L [facility] CHLORIDE 98 96 - 108 mmol/L [facility] CO2 27 21 - 35 mmol/L [facility] BUN 15 6 - 19 mg/dL [facility] CREATININE 0.80 0.5 - 1.5 mg/dL [facility] GLUCOSE 214(H) 70 - 99 mg/dL [facility] ALBUMIN 4.1 3.9 - 4.8 g/dL [facility] TOTAL PROTEIN 7.8 6.5 - 8.0 g/dL [facility] CALCIUM 9.7 8.4 - 10.3 mg/dL [facility] ALKALINE PHOSPHATASE 118(H) 39 - 117 U/L [facility] TOTAL BILIRUBIN 0.8 0.0 - 1.2 mg/dL [facility] AST 27 0 - 37 U/L [facility] ALT 34 0 - 40 U/L [facility] GLOBULIN 3.7 1 - 4.8 g/dL [facility] EGFR 101 >59 mL/min/1.7 3m2 [facility] Comment:If patient is black, multiply result by 1.159. Estimated glomerular filtration rate calculated using the CKD-EPI equation. ANION GAP 18 10 - 20 mmol/L [facility] Blood 11/18/2018 4:18 PM EDT 11/18/2018 4:30 PM EDT us Rishi Renteria MD LAB BLOOD ORDERABLES Final Result [address] [address] * (ABNORMAL) Hemoglobin A1c (11/18/2018 4:18 PM EDT) HEMOGLOBIN A1C 10.5(H) 4.3 - 5.8 % [facility] Blood 11/18/2018 4:18 PM EDT 11/18/2018 4:30 PM EDT us Rishi Renteria MD LAB BLOOD ORDERABLES Final Result [address] [address] * (ABNORMAL) Lipid panel (11/18/2018 4:18 PM EDT) HDL 48 mg/dL [facility] Comment: Interpretation <40 mg/dL: Low HDL cholesterol (major risk factor for CHD) Greater than or equal to 60 mg/dL: High HDL cholesterol ( negative risk factor for CHD) HDL - cholesterol is affected by a number of factors, e.g. smoking, excerise, hormones, sex and age. CHOLESTEROL 125 0 - 240 mg/dL [facility] TRIGLYCERIDES 81 30 - 160 mg/dL [facility] LDL 61 50 - 129 mg/dL [facility] Comment: LDL levels in terms of risk for coronary heart disease: <100 mg/dL: Optimal 100-129 mg/dL: Near or above optimal 130-159 mg/dL: Borderline high 160-189 mg/dL: High >190 mg/dL: Very High CARDIAC RISK RATIO 2.6(L) 3.4 - 5.0 C [facility] Blood 11/18/2018 4:18 PM EDT 11/18/2018 4:30 PM EDT Rishi Renteria MD LAB BLOOD ORDERABLES Final Result Performing Organization Address City/State/[facility] Co de Phone Number [address] [address] from Last 3 Months or Most Recently Relevant to Health Maintenance Insurance [employer] [facility] Care Teams Recording Studio Setup Worker Relationship Specialty Start Date End Date Unknown, Unknown, [address] [address] PCP - General 10/16/19 Marcos Ramsay MD [address] [address] Ophthalmology 11/17/18 Additional Source Comments The information contained in this document represents components of the legal health record. It is not the complete legal health record.[facility]
== END 2025-03-09 15:53 | disposition home or self-care (01) ==
LOC: HO.HKAS 15:33
PROVIDERS: PCP Physician Assistant; Visit Provider Internal Medicine Nephrology
DX: I10 Essential (primary) hypertension (principal)
CPT/HCPCS: 99214

== ENCOUNTER → 2025-03-09 15:31 | Outpatient (BNVA) | payer OTHER, SELFPAY | PROVIDERS: PCP Physician Assistant; Visit Provider Internal Medicine Nephrology | DX: I10 Essential (primary) hypertension (principal) | CPT/HCPCS: 99212 ==

== ENCOUNTER 2025-03-25 14:43 | Outpatient (AMB) | payer OTHER, SELFPAY ==
--- NOTE | 2025-03-25 14:47 | HO.NEPHOV ---
Vital Signs 03/25/25 14:48 Height 5 ft 7 in Weight 200 lb 6 oz BMI 31.4 BP 124/60 Blood Pressure Location Rt brachial Position Sitting Pulse 68 Pulse Source Pulse Oximeter Pulse Oximetry (%) 99 Oxygen Delivery Method Room Air Intake Visit Reasons: Swelling legs Rotor Coil Taper Required: No Accompanied by: Self / Same As Patient Allergies [facility] Adverse Reaction (Intermediate, Verified 03/25/25 14:48) GI upset HPI Comments Details: I had the pleasure of seeing Sree who is a 58-year-old male in follow up for edema and labile blood pressure. He is a diabetic but denies retinopathy or proteinuria. He has hypertension for a long time and he randomly checks his BP at home. He is known to have liver disease. His A1c is now much improved to 5.8. He continues on lisinopril hydrochlorothiazide. Patient denies any chest pain, shortness of breath, headaches, visual disturbances, shortness of breath, PND, orthopnea, pedal edema, hematuria, excess NSAID use. He denies excess sodium intake. He had 24 hour BPM which showed well controlled BP. He has edema without orthopnea, PND, SOBE, chest pain. [facility] Medical History Erectile dysfunction Cataract Pre-op examination Elevated cholesterol Diabetes HTN (hypertension) Surgical History Hx of colonoscopy (07/08/23) History of cataract extraction History of eye surgery History of removal of cyst Family History Father Diabetes Hypertension Mother Hypertension Diabetes Social History Household Members: Spouse Housing: House Are you a primary career development coordinator to a significant other at home: No Do you presently have visiting nurse or other home services: No Alcohol intake: never Patient Tobacco Use Status: Never used Tobacco e-Cigarette/Vaping Use: Never Used Second Hand Smoke Exposure: No service: Yes Current occupational status: employed and retired Current occupation: [employer] Cognitive needs: No Hearing needs: No Vision needs: Yes Review of Systems Const All systems reviewed & are unremarkable except as noted in HPI and below Physical Exam Vital Signs: Last Vital Signs Pulse 68 03/25/25 14:48 BP 124/60 03/25/25 14:48 Pulse Ox 99 03/25/25 14:48 Oxygen Delivery Method Room Air 03/25/25 14:48 BMI result Body Mass Index 31.4 Const General: comfortable and no acute distress Orientation/consciousness: patient oriented x3 HEENT Head: Yes normocephalic Mouth: Normal oral and palatal mucosa present Eyes EOM: EOMs intact bilaterally Neck Neck: Yes supple Resp Auscultation: clear to auscultation bilaterally Cardio Jugular venous distension: no JVD Rate: regular rate GI Palpation (GI): Soft to palpation Auscultation: normal bowel sounds General: Yes no CVA tenderness Back/Spine/Pelvis Back: no CVA tenderness Skin General skin exam: no rashes or lesions noted Neuro General: patient oriented x3 and moves all extremities Extrem General: Yes edema Results Reviewed Nephrology Results: Hgb, (14.0-18.0) 11.2 g/dl L 03/06/25 WBC, (4.8-10.8) 6.7 X10*3/uL 03/06/25 Plt Count, (160-400) 149 X10*3/uL L 03/06/25 Sodium, (135-145) 138 mmol/L 03/06/25 Potassium, (3.3-5.1) 4.4 mmol/L 03/06/25 Chloride, (96-108) 104 mmol/L 03/06/25 Carbon Dioxide, (22-29) 27 mmol/L 03/06/25 BUN, (9-16) 25 mg/dL H 03/06/25 Creatinine, (0.5-1.4) 1.24 mg/dL 03/06/25 Calcium, (8.4-10.2) 9.4 mg/dL 03/06/25 Urine Creatinine 159.86 mg/dL 12/10/24 Protein/Creatinin Ratio TNP 12/10/24 Assessment & Plan Assessment & Plan (1) Edema: Code(s): R60.9 - Edema, unspecified Category: Medical Qualifiers: Edema type: unspecified Qualified Code(s): R60.9 - Edema, unspecified (2) HTN (hypertension): Code(s): I10 - Essential (primary) hypertension Category: Medical Qualifiers: Hypertension type: essential hypertension Qualified Code(s): I10 - Essential (primary) hypertension Plan Sree has longstanding hypertension. He has no retinopathy, LVH, proteinuria or renal dysfunction. His BP is at goal at home. He underwent 24 hour BPM which showed well controlled BP.. He has no H/O CAD, JEFFRY, PAD, CVA or CHF. He denies taking excess sodium in the diet. His volume status is sub optimal. His edema is likely from Amlodipine which I D/Zach. I changed his lisinopril/ HCTZ to lisinopril 20 mg daily. I started him on lasix 40 mg daily along with carvedilol 12.5 mg bid. He is a great candidate for [employer] . I did not make any other medication change today. Answered all questions. F/U given in a month Medications: New carvedilol must administer with a meal/food 12.5 mg PO BID 180 tabs 3RF 90 days furosemide (Lasix) 40 mg PO DAILY 10 tabs 0RF lisinopril 20 mg PO DAILY 90 tabs 3RF Discontinued amlodipine Discontinued Reason: Doctor's Order 5 mg PO DAILY 90 tabs 1RF I10 - Essential (primary) hypertension lisinopril-hydrochlorothiazide 20-25 mg Discontinued Reason: Doctor's Order 1 tab PO DAILY 90 tabs 0RF I10 - Essential (primary) hypertension Coding Level of Care Code Est Pt Level 4 (96466) Diagnoses Edema, unspecified type R60.9 Edema type: unspecified Essential hypertension I10 Hypertension type: essential hypertension
[2025-03-25 14:48] VITALS: BP 124/60; PULSE 68; O2SAT 99; BMI 31.4
--- OUTSIDE RECORDS SUMMARY | 2025-03-25 19:03 | XMS_ITS | Clinical Summary ---
Author Organization [facility] Address [address] [place] [address] Phone Care Team Providers Care Right Of Way Maintenance Supervisor Name Role Phone Marcos Ramsay MD Unavailable [phone] Unknown, Unknown Primary Care Provider Luisito lable [...] EDT) SODIUM 139 133 - 146 mmol/L [facility] POTASSIUM 4.4 3.3 - 5.1 mmol/L [facility] CHLORIDE 98 96 - 108 mmol/L [facility] CO2 27 21 - 35 mmol/L [facility] BUN 15 6 - 19 mg/dL [facility] CREATININE 0.80 0.5 - 1.5 mg/dL [facility] GLUCOSE 214(H) 70 - 99 mg/dL [facility] ALBUMIN 4.1 3.9 - 4.8 g/dL [facility] TOTAL PROTEIN 7.8 6.5 - 8.0 g/dL [facility] CALCIUM 9.7 8.4 - 10.3 mg/dL [facility] ALKALINE PHOSPHATASE 118(H) 39 - 117 U/L [facility] TOTAL BILIRUBIN 0.8 0.0 - 1.2 mg/dL [facility] AST 27 0 - 37 U/L [facility] ALT 34 0 - 40 U/L [facility] GLOBULIN 3.7 1 - 4.8 g/dL [facility] EGFR 101 >59 mL/min/1.7 3m2 [facility] Comment:If patient is black, multiply result by 1.159. Estimated glomerular filtration rate calculated using the CKD-EPI equation. ANION GAP 18 10 - 20 mmol/L [facility] Blood 11/18/2018 4:18 PM EDT 11/18/2018 4:30 PM EDT us Rishi Renteria MD LAB BLOOD ORDERABLES Final Result [address] [address] * (ABNORMAL) Hemoglobin A1c (11/18/2018 4:18 PM EDT) HEMOGLOBIN A1C 10.5(H) 4.3 - 5.8 % [facility] Blood 11/18/2018 4:18 PM EDT 11/18/2018 4:30 PM EDT us Rishi Renteria MD LAB BLOOD ORDERABLES Final Result [address] [address] * (ABNORMAL) Lipid panel (11/18/2018 4:18 PM EDT) HDL 48 mg/dL [facility] Comment: Interpretation <40 mg/dL: Low HDL cholesterol (major risk factor for CHD) Greater than or equal to 60 mg/dL: High HDL cholesterol ( negative risk factor for CHD) HDL - cholesterol is affected by a number of factors, e.g. smoking, excerise, hormones, sex and age. CHOLESTEROL 125 0 - 240 mg/dL [facility] TRIGLYCERIDES 81 30 - 160 mg/dL [facility] LDL 61 50 - 129 mg/dL [facility] Comment: LDL levels in terms of risk for coronary heart disease: <100 mg/dL: Optimal 100-129 mg/dL: Near or above optimal 130-159 mg/dL: Borderline high 160-189 mg/dL: High >190 mg/dL: Very High CARDIAC RISK RATIO 2.6(L) 3.4 - 5.0 C [facility] Blood 11/18/2018 4:18 PM EDT 11/18/2018 4:30 PM EDT Rishi Renteria MD LAB BLOOD ORDERABLES Final Result Performing Organization Address City/State/[facility] Co de Phone Number [address] [address] from Last 3 Months or Most Recently Relevant to Health Maintenance Insurance [facility] Care Teams Right Of Way Maintenance Supervisor Relationship Specialty Start Date End Date Unknown, Unknown, [address] [address] PCP - General 10/16/19 Marcos Ramsay MD [address] [address] Ophthalmology 11/17/18 Additional Source Comments The information contained in this document represents components of the legal health record. It is not the complete legal health record.[facility]
== END 2025-03-25 15:09 | disposition home or self-care (01) ==
LOC: HO.HKAS 14:44
PROVIDERS: PCP Physician Assistant; Visit Provider Internal Medicine Nephrology
DX: R60.9 Edema, unspecified (principal); I10 Essential (primary) hypertension
CPT/HCPCS: 99214

== ENCOUNTER → 2025-03-25 14:43 | Outpatient (BNVA) | payer OTHER, SELFPAY | PROVIDERS: PCP Physician Assistant; Visit Provider Internal Medicine Nephrology | DX: I10 Essential (primary) hypertension (principal); R60.9 Edema, unspecified | CPT/HCPCS: 99212 ==

== ENCOUNTER 2025-04-27 14:46 | Outpatient (AMB) | payer OTHER, SELFPAY ==
--- NOTE | 2025-04-27 14:51 | HO.NEPHOV_ITS ---
Vital Signs 04/27/25 14:53 Height 5 ft 7 in Weight 195 lb 4 oz BMI 30.6 BP 112/60 Blood Pressure Location Lt brachial Position Sitting Pulse 57 Pulse Source Pulse Oximeter Pulse Oximetry (%) 99 Oxygen Delivery Method Room Air Intake Visit Reasons: 1mnth NO LABS-LVM Nurse Assessor Required: No Accompanied by: Self / Same As Patient [facility] Adverse Reaction (Intermediate, Verified 04/27/25 14:52) GI upset HPI Comments Details: I had the pleasure of seeing Sree who is a 58-year-old male in follow up for edema and labile blood pressure. He is a diabetic but denies retinopathy or proteinuria. He has hypertension for a long time and he randomly checks his BP at home. He is known to have liver disease. His A1c is now much improved to 5.8. He continues on lisinopril hydrochlorothiazide. Patient denies any chest pain, shortness of breath, headaches, visual disturbances, shortness of breath, PND, orthopnea, pedal edema, hematuria, excess NSAID use. He denies excess sodium intake. He had 24 hour BPM which showed well controlled BP. He has edema without orthopnea, PND, SOBE, chest pain. His edema is better [facility] Medical History Erectile dysfunction Cataract Pre-op examination Elevated cholesterol Diabetes HTN (hypertension) Surgical History Hx of colonoscopy (07/08/23) History of cataract extraction History of eye surgery History of removal of cyst Family History Father Diabetes Hypertension Mother Hypertension Diabetes Social History Household Members: Spouse Housing: House Are you a primary progressive care manager to a significant other at home: No Do you presently have visiting nurse or other home services: No Alcohol intake: never Patient Tobacco Use Status: Never used Tobacco e-Cigarette/Vaping Use: Never Used Second Hand Smoke Exposure: No service: Yes Current occupational status: employed and retired Current occupation: [employer] Cognitive needs: No Hearing needs: No Vision needs: Yes Review of Systems Const All systems reviewed & are unremarkable except as noted in HPI and below Physical Exam Vital Signs: Last Vital Signs Pulse 57 04/27/25 14:53 BP 112/60 04/27/25 14:53 Pulse Ox 99 04/27/25 14:53 Oxygen Delivery Method Room Air 04/27/25 14:53 BMI result Body Mass Index 30.6 Const General: comfortable and no acute distress Orientation/consciousness: patient oriented x3 HEENT Head: Yes normocephalic Mouth: Normal oral and palatal mucosa present Eyes EOM: EOMs intact bilaterally Neck Neck: Yes supple Resp Auscultation: clear to auscultation bilaterally Cardio Jugular venous distension: no JVD Rate: regular rate GI Palpation (GI): Soft to palpation Auscultation: normal bowel sounds General: Yes no CVA tenderness Back/Spine/Pelvis Back: no CVA tenderness Skin General skin exam: no rashes or lesions noted Neuro General: patient oriented x3 and moves all extremities Extrem General: Yes no pedal edema Results Reviewed Nephrology Results: Hgb, (14.0-18.0) 11.2 g/dl L 03/06/25 WBC, (4.8-10.8) 6.7 X10*3/uL 03/06/25 Plt Count, (160-400) 149 X10*3/uL L 03/06/25 Sodium, (135-145) 138 mmol/L 03/06/25 Potassium, (3.3-5.1) 4.4 mmol/L 03/06/25 Chloride, (96-108) 104 mmol/L 03/06/25 Carbon Dioxide, (22-29) 27 mmol/L 03/06/25 BUN, (9-16) 25 mg/dL H 03/06/25 Creatinine, (0.5-1.4) 1.24 mg/dL 03/06/25 Calcium, (8.4-10.2) 9.4 mg/dL 03/06/25 Urine Creatinine 159.86 mg/dL 12/10/24 Protein/Creatinin Ratio TNP 12/10/24 Assessment & Plan Assessment & Plan (1) HTN (hypertension): Code(s): I10 - Essential (primary) hypertension Category: Medical Qualifiers: Hypertension type: essential hypertension Qualified Code(s): I10 - Essential (primary) hypertension (2) Edema: Code(s): R60.9 - Edema, unspecified Category: Medical Qualifiers: Edema type: unspecified Qualified Code(s): R60.9 - Edema, unspecified Plan Sree has longstanding hypertension. He has no retinopathy, LVH, proteinuria or renal dysfunction. His BP is at goal at home. He underwent 24 hour BPM which showed well controlled BP.. He has no H/O CAD, JEFFRY, PAD, CVA or CHF. He denies taking excess sodium in the diet. His volume status is sub optimal. His edema is likely from Amlodipine which I D/Zach and is better . I changed his lisinopril/ HCTZ to lisinopril 20 mg daily at the last visit . He is a great candidate for [facility] . I did not make any other medication change today. Answered all questions. Coding Level of Care Code Est Pt Level 4 (39501) Diagnoses Essential hypertension I10 Hypertension type: essential hypertension Edema, unspecified type R60.9 Edema type: unspecified
[2025-04-27 14:53] VITALS: BP 112/60; PULSE 57; O2SAT 99; BMI 30.6
--- OUTSIDE RECORDS SUMMARY | 2025-04-27 19:14 | XMS_ITS | Clinical Summary ---
Author Organization [facility] Address [address] [place] [address] Phone Care Team Providers Care Shuttle Car Operator Name Role Phone Marcos Ramsay MD Unavailable [phone] Unknown, Unknown Primary Care Provider Luisito lable [...] EDT) SODIUM 139 133 - 146 mmol/L [facility] POTASSIUM 4.4 3.3 - 5.1 mmol/L [facility] CHLORIDE 98 96 - 108 mmol/L [facility] CO2 27 21 - 35 mmol/L [facility] BUN 15 6 - 19 mg/dL [facility] CREATININE 0.80 0.5 - 1.5 mg/dL [facility] GLUCOSE 214(H) 70 - 99 mg/dL [facility] ALBUMIN 4.1 3.9 - 4.8 g/dL [facility] TOTAL PROTEIN 7.8 6.5 - 8.0 g/dL [facility] CALCIUM 9.7 8.4 - 10.3 mg/dL [facility] ALKALINE PHOSPHATASE 118(H) 39 - 117 U/L [facility] TOTAL BILIRUBIN 0.8 0.0 - 1.2 mg/dL [facility] AST 27 0 - 37 U/L [facility] ALT 34 0 - 40 U/L [facility] GLOBULIN 3.7 1 - 4.8 g/dL [facility] EGFR 101 >59 mL/min/1.7 3m2 [facility] Comment:If patient is black, multiply result by 1.159. Estimated glomerular filtration rate calculated using the CKD-EPI equation. ANION GAP 18 10 - 20 mmol/L [facility] Blood 11/18/2018 4:18 PM EDT 11/18/2018 4:30 PM EDT us Rishi Renteria MD LAB BLOOD ORDERABLES Final Result [address] [address] * (ABNORMAL) Hemoglobin A1c (11/18/2018 4:18 PM EDT) HEMOGLOBIN A1C 10.5(H) 4.3 - 5.8 % [facility] Blood 11/18/2018 4:18 PM EDT 11/18/2018 4:30 PM EDT us Rishi Renteria MD LAB BLOOD ORDERABLES Final Result [address] [address] * (ABNORMAL) Lipid panel (11/18/2018 4:18 PM EDT) HDL 48 mg/dL [facility] Comment: Interpretation <40 mg/dL: Low HDL cholesterol (major risk factor for CHD) Greater than or equal to 60 mg/dL: High HDL cholesterol ( negative risk factor for CHD) HDL - cholesterol is affected by a number of factors, e.g. smoking, excerise, hormones, sex and age. CHOLESTEROL 125 0 - 240 mg/dL [facility] TRIGLYCERIDES 81 30 - 160 mg/dL [facility] LDL 61 50 - 129 mg/dL [facility] Comment: LDL levels in terms of risk for coronary heart disease: <100 mg/dL: Optimal 100-129 mg/dL: Near or above optimal 130-159 mg/dL: Borderline high 160-189 mg/dL: High >190 mg/dL: Very High CARDIAC RISK RATIO 2.6(L) 3.4 - 5.0 C [facility] Blood 11/18/2018 4:18 PM EDT 11/18/2018 4:30 PM EDT Rishi Renteria MD LAB BLOOD ORDERABLES Final Result Performing Organization Address City/State/[facility] Co de Phone Number [address] [address] from Last 3 Months or Most Recently Relevant to Health Maintenance Insurance [facility] Address: [address] [place] [address] Care Teams Shuttle Car Operator Relationship Specialty Start Date End Date Unknown, Unknown, [address] [address] PCP - General 10/16/19 Marcos Ramsay MD [address] [address] Ophthalmology 11/17/18 Additional Source Comments The information contained in this document represents components of the legal health record. It is not the complete legal health record.[facility]
== END 2025-04-27 15:06 | disposition home or self-care (01) ==
LOC: HO.HKAS 14:48
PROVIDERS: PCP Physician Assistant; Visit Provider Internal Medicine Nephrology
DX: I10 Essential (primary) hypertension (principal); R60.9 Edema, unspecified
CPT/HCPCS: 99214

== ENCOUNTER → 2025-04-27 14:46 | Outpatient (BNVA) | payer OTHER, SELFPAY | PROVIDERS: PCP Physician Assistant; Visit Provider Internal Medicine Nephrology | DX: I10 Essential (primary) hypertension (principal); R60.9 Edema, unspecified | CPT/HCPCS: 99212 ==

== ENCOUNTER 2025-06-09 15:33 | Outpatient (AMB) | payer OTHER, SELFPAY ==
[2025-06-09 15:38] VITALS: BP 133/54; PULSE 60; BMI 32.4
--- NOTE | 2025-06-09 15:38 | MHC.OFFVIS ---
Vital Signs 06/09/25 15:38 Height 5 ft 7 in Weight 207 lb BMI 32.4 BP 133/54 L Blood Pressure Location Lt brachial Position Sitting Pulse 60 Intake Visit Reasons: s/p colonoscopy Intake Note: Sree presents to in office today in fllow up s/p colonoscopy. CC: Patient reports doing well. Denies having any GI symptoms or concerns. Computer Typesetter Keyliner Required: No Accompanied by: Self / Same As Patient Allergies dulaglutide (From [facility]) Adverse Reaction (Intermediate, Verified 06/09/25 15:40) GI upset HPI HPI s/p colonoscopy: Details: Assessment & Plan (1) Nonfamilial multiple polyposis syndrome: Code(s): D12.6 - Benign neoplasm of colon, unspecified (2) Tubular adenoma of colon: Comment: 07/2023 SCOPE= 3 TA IS REPEAT IN 1 YEAR DUE TO A HISTORY OF MULTIPLE POLYPOSIS Code(s): D12.6 - Benign neoplasm of colon, unspecified Plan He is agreeable to a 1 year repeat. The procedure was well tolerated. The results were explained and the patient is agreeable to the follow-up interval as stated. The bowel pattern has returned to normal. Education was provided to tell any 1st degree relatives about their findings to be sure that they are screened by age 45. Educated that they will be put on a recall list when it is time for their repeat scope but should they move out of state or away from the hospital they will need to remember along with their primary to repeat the procedure in a timely fashion to avoid any adverse complications. I am going to see if he can booked directly for this procedure and I will send more of the MiraLax/bisacodyl prep that he likes. I will see him again after his next procedure in a little over a year Medications: New bisacodyl (Dulcolax (bisacodyl)) 10 mg (2 x 5 mg) PO BEDTIME 2 days 4 tabs 0RF Refilled polyethylene glycol 3350 (Miralax) 17 grams PO DAILY 30 days 1,020 grams 0RF D36.9 - Benign neoplasm, unspecified site COLONOSCOPY 01/25/25? Findings: Terminal Ileum: Not evaluated Cecum: Normal Ascending Colon: A 15 mm non-bleeding AVM Transverse Colon: A 2 cms flat sessile polyp at 90 cms. Polyp was raised with 3 cc of Eleview and removed with a stiff hot snare. Margins of the polypectomy site was treated with cautery using the snare tip, closed with 1 hemoclip and marked by Vianey ink. A 12 mm sessile polyp removed with a hot snare. A 12 mm non-bleeding AVM in the transverse Descending Colon: Normal Sigmoid Colon: A 10 mm sessile polyp - removed with a hot snare. Moderate diverticulosis Rectum: Normal Ano-rectum: Moderate internal hemorrhoids Impression and Post Procedure Diagnosis: Colonoscopy Findings: Three medium sized polyps were removed Moderate diverticulosis seen in the left colon Moderate hemorrhoids on retroflexed exam. Plan: I will send a letter with biopsy results. Repeat Colonoscopy in 1 year if polyps are adenomatous and to check polypectomy site in the transverse colon. Above findings were reviewed with the patient and relevant handouts were given and the discharge area. BIOPSIES SHOWED: A. Colon, transverse, polypectomy: Tubular adenoma; negative for high-grade dysplasia or carcinoma. B. Colon, transverse at 90 cm, polypectomy: Fragments of tubular adenoma; negative for high-grade dysplasia or carcinoma. C. Colon, sigmoid, polypectomy: Fragments of tubular adenoma; negative for high-grade dysplasia or carcinoma TODAYS VISIT [facility] Medical History Erectile dysfunction Cataract Pre-op examination Elevated cholesterol Diabetes HTN (hypertension) Surgical History Hx of colonoscopy (07/08/23) History of cataract extraction History of eye surgery History of removal of cyst Family History Father Diabetes Hypertension Mother Hypertension Diabetes Social History Household Members: Spouse Housing: House Are you a primary complex care nurse practitioner to a significant other at home: No Do you presently have visiting nurse or other home services: No Alcohol intake: never Patient Tobacco Use Status: Never used Tobacco e-Cigarette/Vaping Use: Never Used Second Hand Smoke Exposure: No service: Yes Current occupational status: employed and retired Current occupation: [employer] Cognitive needs: No Hearing needs: No Vision needs: Yes Assessment & Plan Assessment & Plan (1) Tubular adenoma of colon: Comment: 07/2023 SCOPE= 3 TA IS REPEAT IN 1 YEAR DUE TO A HISTORY OF MULTIPLE POLYPOSIS Code(s): D12.6 - Benign neoplasm of colon, unspecified Category: Medical (2) AVM (arteriovenous malformation) of colon: Comment: ascending colon 15mm 2022 scope Code(s): K55.20 - Angiodysplasia of colon without hemorrhage Category: Medical Plan He is agreeable to a 1 year repeat. The procedure was well tolerated. The results were explained and the patient is agreeable to the follow-up interval as stated. The bowel pattern has returned to normal. Education was provided to tell any 1st degree relatives about their findings to be sure that they are screened by age 45. Educated that they will be put on a recall list when it is time for their repeat scope but should they move out of state or away from the hospital they will need to remember along with their primary to repeat the procedure in a timely fashion to avoid any adverse complications. Orders: Referrals GI Procedure Notification D12.6 - Benign neoplasm of colon, unspecified, K55.20 - Angiodysplasia of colon without hemorrhage Coding Level of Care Code Est Pt Level 3 (19159) Diagnoses Tubular adenoma of colon D12.6 AVM (arteriovenous malformation) of colon K55.20
--- OUTSIDE RECORDS SUMMARY | 2025-06-10 00:11 | XMS_ITS | Clinical Summary ---
Author Organization [facility] Address [address] [place] [address] Phone Care Team Providers Care Channel Marketing Specialist Name Role Phone Marcos Ramsay MD Unavailable [phone] Unknown, Unknown Primary Care Provider Luisito lable [...] current use of insulin COMPREHENSIVE METABOLIC PANEL (CMP) Routine 11/18/2018 4:18 PM EDT Type 2 diabetes mellitus with 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, without long-term current use of insulin from Last 3 Months or Most Recently Relevant to Health Maintenance Results * (ABNORMAL) Comprehensive metabolic panel (11/18/2018 4:18 PM EDT) SODIUM 139 133 - 146 mmol/L [facility] POTASSIUM 4.4 3.3 - 5.1 mmol/L [facility] CHLORIDE 98 96 - 108 mmol/L [facility] CO2 27 21 - 35 mmol/L [facility] BUN 15 6 - 19 mg/dL [facility] CREATININE 0.80 0.5 - 1.5 mg/dL [facility] GLUCOSE 214(H) 70 - 99 mg/dL [facility] ALBUMIN 4.1 3.9 - 4.8 g/dL [facility] TOTAL PROTEIN 7.8 6.5 - 8.0 g/dL [facility] CALCIUM 9.7 8.4 - 10.3 mg/dL [facility] ALKALINE PHOSPHATASE 118(H) 39 - 117 U/L [facility] TOTAL BILIRUBIN 0.8 0.0 - 1.2 mg/dL [facility] AST 27 0 - 37 U/L [facility] ALT 34 0 - 40 U/L [facility] GLOBULIN 3.7 1 - 4.8 g/dL [facility] EGFR 101 >59 mL/min/1.7 3m2 [facility] Comment:If patient is black, multiply result by 1.159. Estimated glomerular filtration rate calculated using the CKD-EPI equation. ANION GAP 18 10 - 20 mmol/L [facility] Blood 11/18/2018 4:18 PM EDT 11/18/2018 4:30 PM EDT Rishi Renteria MD LAB BLOOD BKR ORDERABLES F inal Result Performing Organization Address [facility] Co de Phone Number [address] [phone] * (ABNORMAL) Hemoglobin A1c (11/18/2018 4:18 PM EDT) HEMOGLOBIN A1C 10.5(H) 4.3 - 5.8 % [facility] Blood 11/18/2018 4:18 PM EDT 11/18/2018 4:30 PM EDT Rishi Renteria MD LAB BLOOD BKR ORDERABLES F inal Result Performing Organization Address [facility]/ZIP Co de Phone Number [address] [phone] * (ABNORMAL) Lipid panel (11/18/2018 4:18 PM EDT) HDL 48 mg/dL [facility] Comment: Interpretation <40 mg/dL: Low HDL cholesterol (major risk factor for CHD) Greater than or equal to 60 mg/dL: High HDL cholesterol ( negative risk factor for CHD) HDL - cholesterol is affected by a number of factors, e.g. smoking, excerise, hormones, sex and age. CHOLESTEROL 125 0 - 240 mg/dL [facility] TRIGLYCERIDES 81 30 - 160 mg/dL [facility] LDL 61 50 - 129 mg/dL [facility] Comment: LDL levels in terms of risk for coronary heart disease: <100 mg/dL: Optimal 100-129 mg/dL: Near or above optimal 130-159 mg/dL: Borderline high 160-189 mg/dL: High >190 mg/dL: Very High CARDIAC RISK RATIO 2.6(L) 3.4 - 5.0 [facility] Blood 11/18/2018 4:18 PM EDT 11/18/2018 4:30 PM EDT us Rishi Renteria MD LAB BLOOD BKR ORDERABLES F inal Result [address] [phone] from Last 3 Months or Most Recently Relevant to Health Maintenance Insurance [facility] Care Teams Channel Marketing Specialist Relationship Specialty Start Date End Date Unknown, Unknown, [address] [address] PCP - General 10/16/19 Marcos Ramsay MD [address] [id number] Ophthalmology 11/17/18 Additional Source Comments The information contained in this document represents components of the legal health record. It is not the complete legal health record.[facility]
== END 2025-06-09 15:58 | disposition home or self-care (01) ==
LOC: HO.HGI 15:34
PROVIDERS: PCP Physician Assistant; Visit Provider Nurse Practitioner
DX: D12.6 Benign neoplasm of colon, unspecified (principal); K55.20 Angiodysplasia of colon without hemorrhage
CPT/HCPCS: 99213

== ENCOUNTER → 2025-06-09 15:33 | Outpatient (BNVA) | payer OTHER, SELFPAY | PROVIDERS: PCP Physician Assistant; Visit Provider Nurse Practitioner | DX: D12.6 Benign neoplasm of colon, unspecified (principal); K55.20 Angiodysplasia of colon without hemorrhage | CPT/HCPCS: 99212 ==